=== PATIENT | female | born 1965 | race Caucasian/White ===

== ENCOUNTER → 2017-09-20 09:25 | Outpatient (CLI) | payer MEDICARE, SELFPAY ==
[2017-09-20 09:43] LABS: Basophils % 0.6 % (0.1-2.0); Eosinophils # 0.5 K/mm3 (0.0-0.4); Eosinophils % 7.2 % (0.1-12.0); Hemoglobin 13.7 g/dL (12.2-16.2); Lymphocytes # 1.3 K/mm3 (0.7-4.5); Mean Corpuscular HGB Conc 33.3 g/dL (31.8-35.4); Mean Corpuscular Hemoglobin 30.6 pg (27.0-31.2); Mean Platelet Volume 7.5 fl (7.4-10.4); Monocytes # 0.5 K/mm3 (0.1-1.0); Monocytes % 7.6 % (1.7-9.3); Neutrophils # 4.3 K/mm3 (1.8-7.8); Neutrophils % 64.5 % (37.0-80.0); Platelet Count 323 K/mm3 (142-424); Red Blood Count 4.46 M/mm3 (4.20-5.40); Red Cell Distribution Width 13.5 % (11.5-17.5); White Blood Count 6.6 K/mm3 (4.8-10.8)
[2017-09-20 10:54] LABS: Alanine Aminotransferase 51 U/L (12-78); Albumin Level 3.9 gm/dL (3.4-5.0); Albumin/Globulin Ratio 1.4 (1.1-1.8); Alkaline Phosphatase 70 U/L (46-116); Anion Gap 11.4 mEq/L (5-15); Aspartate Amino Transferase 24 U/L (15-37); Bilirubin,Total 0.4 mg/dL (0.2-1.0); Blood Urea Nitrogen 16 mg/dL (7-18); Calcium 9.4 mg/dL (8.5-10.1); Carbon Dioxide 29 mmol/L (21.0-32.0); Chloride 106 mmol/L (98-107); Creatinine,Serum 0.72 mg/dL (0.55-1.02); Estimated Glomerular Filt Rate 86 ml/min (>60); GFR (African American) 104 ML/MIN (>60); Globulin 2.7 gm/dl (1.3-3.2); Glucose 82 mg/dL (74-106); Potassium 4.4 mmoL/L (3.5-5.1); Sodium 142 mmol/L (136-145); Total Protein,Serum 6.6 gm/dL (6.4-8.2)
== END ==
PROVIDERS: PCP Family Medicine; Visit Provider Psychiatry & Neurology Neurology
DX: Z79.899 Other long term (current) drug therapy (principal); G35 Multiple sclerosis; E11.40 Type 2 diabetes mellitus with diabetic neuropathy, unspecified
CPT/HCPCS: 36415; 80053; 85025

== ENCOUNTER → 2017-11-14 14:50 | Outpatient (CLI) | payer MEDICARE, SELFPAY ==
--- NOTE | 2017-11-14 14:52 | MR_ITS ---
MR head/brain wo con HISTORY: Diplopia, multiple sclerosis, neuropathy, unsteady gait, history of multiple sclerosis with follow-up, double vision, right upper extremity neuropathy ITS.REASON: DIPLOPIA, MULTIPLE SCLEROSIS, NEUROPATHY, UNSTEADY GAIT ORDERING PHYSICIAN: Gisselle Gray PATIENT AGE: 52 years COMPARISON: 05/03/2015 TECHNIQUE: Standard multiplanar multiecho sequences are performed without contrast. FINDINGS: No midline shift, mass effect, intracranial hemorrhage, or hydrocephalus is evident. No evidence of acute infarction or restricted diffusion. The cerebellopontine angles, cerebellum, and brainstem are unremarkable. The pituitary and optic chiasm are unremarkable as is the corpus callosum. Unremarkable craniocervical junction. There are scattered periventricular and subcortical small T2 white matter hyperintensities which are similar when compared to the previous exam. A small punctate focus of T2 hyperintensity is present in the antral aspect of the left putamen and in the left temporal lobe central white matter which is not readily apparent on the previous exam. These are questioned clinical significance. These are small and well demarcated each measuring approximately 1 to 2 mm. No other new lesions are evident. No mastoid effusion or sinus air-fluid level. IMPRESSION: 1. There are scattered T2 white matter hyperintensities as described above most of which are unchanged. This may be seen with multiple sclerosis or ischemic gliotic change from microvascular disease. Please correlate with clinical parameters. 2. There are 2 new punctate foci of increased T2 signal in the left basal ganglia and one in the left temporal lobe are nonspecific. 3. Otherwise negative MRI of the brain without contrast.
== END ==
PROVIDERS: Family Provider Family Medicine; PCP Family Medicine; Visit Provider Psychiatry & Neurology Neurology
DX: H53.2 Diplopia (principal); G35 Multiple sclerosis; R26.89 Other abnormalities of gait and mobility
CPT/HCPCS: 70551

== ENCOUNTER → 2018-01-01 08:28 | Outpatient (CLI) | payer MEDICARE, SELFPAY ==
--- NOTE | 2018-01-01 08:32 | MM_ITS ---
MM Dig screening mamm BI w/CAD CAD Screening ORDERING PHYSICIAN : Georges Linder MD PATIENT AGE: 52 years GENDER: Female INDICATION: Routine screening.. No hormones. No new complaints Family history paternal aunt breast cancer premenopausal COMPARISON: Previous mammograms: August 08, 2016,, 2012, TECHNIQUE: Standard CC and MLO images were obtained. R2 CAD reviewed. FINDINGS: Moderate breast density bilaterally Overall pattern however similar to previous studies with no significant new findings. But no dominant mass nor suspicious calcification. There is slight decreasing breast density with compared back to 2012. CAD Computer review highlights no areas of concern either breast IMPRESSION: ...... Stable mammogram with no significant new findings. Moderately dense breast. . Follow-up in one year recommended BI-RADS Category: 1 Negative RECOMMENDED FOLLOW-UP: 1YR - 1 YEAR FOLLOW-UP (A letter has been sent to the patient regarding results of the study.)
== END ==
PROVIDERS: Family Provider Family Medicine; PCP Family Medicine; Visit Provider Family Medicine
DX: Z12.31 Encounter for screening mammogram for malignant neoplasm of breast (principal)
CPT/HCPCS: 77067

== ENCOUNTER → 2018-07-24 14:00 | Outpatient (CLI) | payer MEDICARE, SELFPAY ==
--- NOTE | 2018-07-24 14:07 | XR_ITS ---
XR chest 2V HISTORY: ITS.REASON: BRONCHITIS ORDERING PHYSICIAN: RJ Nova PATIENT AGE: 52 years COMPARISON: 09/30/2009 FINDINGS: The cardiomediastinal silhouette and pulmonary vascularity are within normal limits. The lungs are clear without infiltrates, suspicious nodules, or pleural effusions. No acute bony abnormalities. IMPRESSION: Negative chest, no acute finding
== END ==
PROVIDERS: PCP Family Medicine; Visit Provider Physician Assistant
DX: J40 Bronchitis, not specified as acute or chronic (principal)
CPT/HCPCS: 71046

== ENCOUNTER → 2018-08-08 13:44 | Outpatient (CLI) | payer MEDICARE, SELFPAY ==
--- NOTE | 2018-08-08 13:51 | XR_ITS ---
XR chest 2V HISTORY: ITS.REASON: BRONCHITIS ORDERING PHYSICIAN: RJ Nova PATIENT AGE: 52 years COMPARISON: 07/24/2018 FINDINGS: The cardiomediastinal silhouette and pulmonary vascularity are within normal limits. The lungs are clear without infiltrates, suspicious nodules, or pleural effusions. No acute bony abnormalities. IMPRESSION: Negative chest, no acute finding
== END ==
PROVIDERS: PCP Family Medicine; Visit Provider Physician Assistant
DX: J40 Bronchitis, not specified as acute or chronic (principal)
CPT/HCPCS: 71046

== ENCOUNTER → 2018-11-06 16:00 | Outpatient (CLI) | payer MEDICARE, SELFPAY ==
[2018-11-06 16:43] LABS: Basophils # 0.1 K/mm3 (0-0.2); Basophils % 0.9 % (0.1-2.0); Eosinophils # 0.6 K/mm3 (0.0-0.4); Eosinophils % 9.2 % (0.1-12.0); Hematocrit 39.4 % (37.0-47.0); Lymphocytes # 1.3 K/mm3 (0.7-4.5); Lymphocytes % 19.3 % (10-50); Mean Corpuscular HGB Conc 33.1 g/dL (31.8-35.4); Mean Corpuscular Hemoglobin 30.8 pg (27.0-31.2); Mean Corpuscular Volume 93.1 fl (81-99); Mean Platelet Volume 7.4 fl (7.4-10.4); Monocytes # 0.6 K/mm3 (0.1-1.0); Monocytes % 8.9 % (1.7-9.3); Neutrophils % 61.7 % (37.0-80.0); Platelet Count 354 K/mm3 (142-424); Red Blood Count 4.23 M/mm3 (4.20-5.40); Red Cell Distribution Width 13.9 % (11.5-17.5); White Blood Count 6.5 K/mm3 (4.8-10.8)
[2018-11-06 18:37] LABS: Alanine Aminotransferase 47 U/L (12-78); Albumin Level 3.8 gm/dL (3.4-5.0); Albumin/Globulin Ratio 1.3 (1.1-1.8); Alkaline Phosphatase 73 U/L (46-116); Anion Gap 14.4 mEq/L (5-15); Aspartate Amino Transferase 26 U/L (15-37); Bilirubin,Total 0.3 mg/dL (0.2-1.0); Blood Urea Nitrogen 19 mg/dL (7-18); Calcium 9.5 mg/dL (8.5-10.1); Carbon Dioxide 27 mmol/L (21.0-32.0); Chloride 103 mmol/L (98-107); Creatinine,Serum 0.86 mg/dL (0.55-1.02); Estimated Glomerular Filt Rate 70 ml/min (>60); GFR (African American) 84 ML/MIN (>60); Globulin 2.9 gm/dl (1.3-3.2); Glucose 125 mg/dL (74-106); Potassium 4.4 mmoL/L (3.5-5.1); Sodium 140 mmol/L (136-145); Total Protein,Serum 6.7 gm/dL (6.4-8.2)
== END ==
PROVIDERS: Visit Provider Psychiatry & Neurology Neurology
DX: G35 Multiple sclerosis (principal); R41.3 Other amnesia; R26.81 Unsteadiness on feet; E11.40 Type 2 diabetes mellitus with diabetic neuropathy, unspecified; Z79.84 Long term (current) use of oral hypoglycemic drugs
CPT/HCPCS: 36415; 80053; 85025

== ENCOUNTER → 2018-12-03 09:08 | Outpatient (CLI) | payer MEDICARE, SELFPAY ==
[2018-12-03 10:32] LABS: Alanine Aminotransferase 36 U/L (12-78); Albumin Level 3.9 gm/dL (3.4-5.0); Albumin/Globulin Ratio 1.2 (1.1-1.8); Alkaline Phosphatase 88 U/L (46-116); Anion Gap 16.4 mEq/L (5-15); Aspartate Amino Transferase 11 U/L (15-37); Bilirubin,Total 0.4 mg/dL (0.2-1.0); Blood Urea Nitrogen 16 mg/dL (7-18); Calcium 9.4 mg/dL (8.5-10.1); Carbon Dioxide 26 mmol/L (21.0-32.0); Chloride 102 mmol/L (98-107); Chol/HDL Ratio 3.1 (1-3.5); Cholesterol 155 mg/dL (140-200); Creatinine,Serum 0.86 mg/dL (0.55-1.02); Estimated Glomerular Filt Rate 70 ml/min (>60); GFR (African American) 84 ML/MIN (>60); Globulin 3.3 gm/dl (1.3-3.2); Glucose 237 mg/dL (74-106); HDL Cholesterol 50 mg/dL (29-89); LDL Cholesterol 45 mg/dL (0-130); Potassium 4.4 mmoL/L (3.5-5.1); Sodium 140 mmol/L (136-145); Total Protein,Serum 7.2 gm/dL (6.4-8.2); Triglycerides 302 mg/dL (30-200); VLDL Cholesterol 60 mg/dL (0-40)
[2018-12-03 10:55] LABS: Thyroid Stimulating Hormone 1.37 uIU/ml (0.358-3.740)
[2018-12-04 12:47] LABS: Vitamin B12 1206 pg/mL (232-1245); Vitamin D 25 Hydroxy 77.2 ng/mL (30.0-100.0)
== END ==
PROVIDERS: Visit Provider Physician Assistant
DX: E78.2 Mixed hyperlipidemia (principal); E03.9 Hypothyroidism, unspecified; E53.8 Deficiency of other specified B group vitamins; E11.9 Type 2 diabetes mellitus without complications; E55.9 Vitamin D deficiency, unspecified; Z00.00 Encounter for general adult medical examination without abnormal findings
CPT/HCPCS: 36415; 80053; 80061; 82607; 82652; 84443

== ENCOUNTER → 2019-12-08 10:31 | Outpatient (CLI) | payer MEDICARE, SELFPAY ==
--- NOTE | 2019-12-08 10:54 | XR_ITS ---
PROCEDURE: XR HAND RT MIN 3V CLINICAL INDICATION: DEQUERVAIN'S TENOSYNOVITIS Pain COMPARISON: No exams were available for comparison FINDINGS: No fracture or dislocation. No lytic or blastic change. There is normal mineralization. The joint spaces are well-preserved. No significant degenerative/arthritic changes. No erosive changes evident. Other findings:None. IMPRESSION: Negative right hand Dictated by: Paxton Henry MD 12/08/2019 11:33 Electronically signed by Paxton Henry MD in [place] 12/08/2019 11:33
--- NOTE | 2019-12-08 10:54 | XR_ITS ---
PROCEDURE: XR WRIST LT MIN 3V CLINICAL INDICATION: DEQUERVAIN'S TENOSYNOVITIS Pain COMPARISON: XR HAND LT MIN 3V from 12/08/2019 FINDINGS: No fracture, dislocation, lytic change, or blastic change evident. No significant degenerative change IMPRESSION: No acute findings. Dictated by: Paxton Henry MD 12/08/2019 11:34 Electronically signed by Paxton Henry MD in [place] 12/08/2019 11:34
--- NOTE | 2019-12-08 10:54 | XR_ITS ---
PROCEDURE: XR WRIST RT MIN 3V CLINICAL INDICATION: DEQUERVAIN'S TENOSYNOVITIS Wrist pain COMPARISON: No exams were available for comparison FINDINGS: No fracture, dislocation, lytic change, or blastic change evident. No significant degenerative change IMPRESSION: Negative right wrist Dictated by: Paxton Henry MD 12/08/2019 11:30 Electronically signed by Paxton Henry MD in [place] 12/08/2019 11:30
[2019-12-08 12:22] LABS: Alanine Aminotransferase 37 U/L (12-78); Albumin Level 4.8 g/dl (3.5-5.0); Alkaline Phosphatase 84 U/L (38-126); Anion Gap 16.3 mEq/L (5-15); Aspartate Amino Transferase 22 U/L (14-36); Bilirubin,Total 0.4 mg/dl (0.2-1.3); Blood Urea Nitrogen 24 mg/dl (7-17); Carbon Dioxide 27 mmol/L (22.0-30.0); Chloride 98 mmol/L (98-107); Chol/HDL Ratio 2.1 (1-3.5); Cholesterol 134 mg/dl (140-200); Estimated Glomerular Filt Rate 88 ml/min (>60); GFR (African American) 106 ML/MIN (>60); Globulin 2.4 g/dL (1.3-3.2); Glucose 175 mg/dl (74-100); HDL Cholesterol 64 mg/dl (40-60); Potassium 4.3 mmoL/L (3.5-5.1); Sodium 137 mmol/L (136-145); Total Protein,Serum 7.2 g/dl (6.3-8.2); Triglycerides 331 mg/dl (30-150); VLDL Cholesterol 66 mg/dL (0-40)
[2019-12-08 12:32] LABS: Direct LDL Cholesterol 45.59 mg/dL (100-129)
[2019-12-08 12:54] LABS: Thyroid Stimulating Hormone 0.57 uIU/mL (0.465-4.68)
[2019-12-09 06:58] LABS: Vitamin D 25 Hydroxy 88.3 ng/mL (30.0-100.0)
[2019-12-09 09:30] LABS: Vitamin B12 1501 pg/mL (232-1245)
== END ==
PROVIDERS: Visit Provider Physician Assistant
DX: E03.9 Hypothyroidism, unspecified (principal); E11.9 Type 2 diabetes mellitus without complications; E78.2 Mixed hyperlipidemia; E53.8 Deficiency of other specified B group vitamins; E55.9 Vitamin D deficiency, unspecified; M65.4 Radial styloid tenosynovitis [de Quervain]; Z79.4 Long term (current) use of insulin
CPT/HCPCS: 36415; 73110; 73130; 80053; 80061; 82607; 82652; 84439; 84443

== ENCOUNTER → 2019-12-16 09:25 | Outpatient (CLI) | payer MEDICARE, SELFPAY ==
[2019-12-19 09:17] LABS: RA Latex Turbid. <10.0 IU/mL (0.0-13.9)
== END ==
PROVIDERS: Visit Provider Physician Assistant
DX: M25.562 Pain in left knee (principal); M25.561 Pain in right knee
CPT/HCPCS: 36415; 86431

== ENCOUNTER → 2020-01-08 13:18 | Outpatient (CLI) | payer MEDICARE, SELFPAY ==
[2020-01-08 15:55] LABS: Uric Acid 5.3 mg/dl (2.5-6.2)
[2020-01-08 17:33] LABS: Erythrocyte Sedimentation Rate 18 mm/hr (0-30)
[2020-01-14 03:47] LABS: Antinuclear Antibodies, IFA Negative (.)
== END ==
PROVIDERS: Visit Provider Physician Assistant
DX: M25.562 Pain in left knee (principal); M25.561 Pain in right knee
CPT/HCPCS: 36415; 84550; 85651; 86038

== ENCOUNTER → 2020-02-10 07:38 | Outpatient (CLI) | payer MEDICARE, SELFPAY ==
--- NOTE | 2020-02-10 07:44 | MR_ITS ---
PROCEDURE: MR HEAD/BRAIN WO CON CLINICAL INDICATION: MULTIPLE SCLEROSIS COMPARISON: BRAINWO MR head/brain wo con from 11/14/2017 TECHNIQUE: Standard unenhanced brain MRI protocol FINDINGS: There are no restricted diffusion abnormalities. The vertebrobasilar arteries, 7th and 8th nerves, ventricles, pituitary, orbits, and sinuses are unremarkable. There are stable scattered foci of T2 prolongation within the subcortical, periventricular, and the pericallosal white matter. There are no definite new lesions. Corpus callosum and the midbrain is unremarkable. There is no hemorrhage. IMPRESSION: Stable supratentorial findings of known multiple sclerosis. Dictated by: Flo Talley 02/10/2020 12:11 Electronically signed by Flo Talley in [place] 02/10/2020 12:11
== END ==
PROVIDERS: PCP Family Medicine; Visit Provider Psychiatry & Neurology Neurology
DX: G35 Multiple sclerosis (principal)
CPT/HCPCS: 70551

== ENCOUNTER → 2020-03-09 14:52 | Outpatient (CLI) | payer MEDICARE, SELFPAY ==
[2020-03-09 15:15] LABS: Basophils # 0.1 K/mm3 (0-0.2); Basophils % 0.6 % (0.1-2.0); Eosinophils # 0.5 K/mm3 (0.0-0.4); Eosinophils % 6.2 % (0.1-12.0); Hematocrit 40.5 % (37.0-47.0); Hemoglobin 13.5 g/dL (12.2-16.2); Lymphocytes # 1.2 K/mm3 (0.7-4.5); Lymphocytes % 15.7 % (10-50); Mean Corpuscular HGB Conc 33.4 g/dL (31.8-35.4); Mean Corpuscular Hemoglobin 30.7 pg (27.0-31.2); Mean Corpuscular Volume 91.8 fl (81-99); Mean Platelet Volume 8.4 fl (7.4-10.4); Monocytes # 0.6 K/mm3 (0.1-1.0); Monocytes % 7.5 % (1.7-9.3); Neutrophils # 5.3 K/mm3 (1.8-7.8); Platelet Count 339 K/mm3 (142-424); Red Blood Count 4.41 M/mm3 (4.20-5.40); Red Cell Distribution Width 14.1 % (11.5-17.5); White Blood Count 7.5 K/mm3 (4.8-10.8)
[2020-03-09 16:43] LABS: Anion Gap 15.3 mEq/L (5-15); Blood Urea Nitrogen 18 mg/dl (7-17); Calcium 9.9 mg/dl (8.4-10.2); Carbon Dioxide 28 mmol/L (22.0-30.0); Chloride 100 mmol/L (98-107); Estimated Glomerular Filt Rate 66 ml/min (>60); GFR (African American) 80 ML/MIN (>60); Glucose 172 mg/dl (74-100); Potassium 4.3 mmoL/L (3.5-5.1); Sodium 139 mmol/L (136-145)
== END ==
PROVIDERS: Visit Provider Physician Assistant
DX: G35 Multiple sclerosis; I10 Essential (primary) hypertension; I25.10 Atherosclerotic heart disease of native coronary artery without angina pectoris; Q24.8 Other specified congenital malformations of heart; R06.09 Other forms of dyspnea; R55 Syncope and collapse; E78.49 Other hyperlipidemia
CPT/HCPCS: 36415; 80048; 85025

== ENCOUNTER → 2020-05-18 09:42 | Outpatient (CLI) | payer MEDICARE, SELFPAY ==
[2020-05-18 10:36] LABS: Basophils # 0.1 K/mm3 (0-0.2); Basophils % 0.8 % (0.1-2.0); Eosinophils # 0.4 K/mm3 (0.0-0.4); Eosinophils % 5.7 % (0.1-12.0); Hematocrit 42.2 % (37.0-47.0); Hemoglobin 13.7 g/dL (12.2-16.2); Lymphocytes % 16.9 % (10-50); Mean Corpuscular HGB Conc 32.6 g/dL (31.8-35.4); Mean Corpuscular Hemoglobin 29.9 pg (27.0-31.2); Mean Corpuscular Volume 91.9 fl (81-99); Mean Platelet Volume 7.4 fl (7.4-10.4); Monocytes # 0.5 K/mm3 (0.1-1.0); Monocytes % 8.2 % (1.7-9.3); Neutrophils # 4.2 K/mm3 (1.8-7.8); Neutrophils % 68.4 % (37.0-80.0); Platelet Count 333 K/mm3 (142-424); Red Blood Count 4.59 M/mm3 (4.20-5.40); Red Cell Distribution Width 13.6 % (11.5-17.5); White Blood Count 6.2 K/mm3 (4.8-10.8)
[2020-05-18 11:26] LABS: Chloride 99 mmol/L (98-107); Potassium 4.8 mmoL/L (3.5-5.1); Sodium 139 mmol/L (136-145)
[2020-05-18 11:29] LABS: Alanine Aminotransferase 32 U/L (12-78); Albumin Level 4.4 g/dl (3.5-5.0); Albumin/Globulin Ratio 1.8 (1.1-1.8); Alkaline Phosphatase 91 U/L (38-126); Anion Gap 17.8 mEq/L (5-15); Aspartate Amino Transferase 29 U/L (14-36); Bilirubin,Total 0.7 mg/dl (0.2-1.3); Blood Urea Nitrogen 16 mg/dl (7-17); Carbon Dioxide 27 mmol/L (22.0-30.0); Estimated Glomerular Filt Rate 75 ml/min (>60); GFR (African American) 91 ML/MIN (>60); Globulin 2.4 g/dL (1.3-3.2); Total Protein,Serum 6.8 g/dl (6.3-8.2)
[2020-05-18 11:30] LABS: Calcium 9.6 mg/dl (8.4-10.2); Glucose 190 mg/dl (74-100)
== END ==
PROVIDERS: Visit Provider Psychiatry & Neurology Neurology
DX: G35 Multiple sclerosis (principal); E11.40 Type 2 diabetes mellitus with diabetic neuropathy, unspecified; Z79.4 Long term (current) use of insulin; Z79.899 Other long term (current) drug therapy; M79.642 Pain in left hand; M79.641 Pain in right hand
CPT/HCPCS: 36415; 80053; 85025

== ENCOUNTER → 2020-11-17 07:41 | Outpatient (CLI) | payer MEDICARE, SELFPAY ==
--- NOTE | 2020-11-17 07:44 | MM_ITS ---
PROCEDURE: MM DIG SCREENING MAMM BI W/CAD Digital Breast Tomosynthesis Included CLINICAL INDICATION: SCREENING There is a history of breast cancer in the patient's paternal aunt. COMPARISON: MG DMSB DIG MAMM-SCREEN ABEL from 07/27/2016 MG DMDXUAVL DIG MAMM-DX UNI ADD VIEWS-LT from 08/18/2016 MG SCBI MM Dig screening mamm BI w/CAD from 01/01/2018 TECHNIQUE: Standard CC and MLO images and 3D Tomosynthesis was obtained. R2 CAD reviewed. FINDINGS: Moderate fibroglandular densities are seen in the central portions of both breast. There are no CAD markings. There are couple of benign-appearing microcalcifications in each breast. There is no suspicious lesion and no suspicious microcalcifications. IMPRESSION: Moderate breast density with no suspicious lesions seen BI-RAD Category: 2 Benign Finding(s) FOLLOW-UP: 1YR 1 Year Follow-up (A letter has been sent to the patient regarding results of the study.) Dictated by: Dr. Shahriar Marquez MD 11/24/2020 08:15 Dr. Shahriar Marquez MD in [place] 11/24/2020 08:15
--- NOTE | 2020-11-17 07:45 | XR_ITS ---
PROCEDURE: XR DEXA AXIAL SKELETON CLINICAL HISTORY: POST MENOPAUSAL COMPARISON: CR BONE3 BONE DENSITOMETRY(HIP:LT SPINE from 07/27/2016 FINDINGS: The right hip BMD is 0.841 grams/square centimeters with a T-score of -0.8 The left hip BMD is 0.855 grams/cm2 with a T-score of -0.7 The lumbar spine BMD is 1.001 grams/centimeters square with a T-score of -0.4 IMPRESSION: This patient is considered normal according to the World Health Organization criteria. Fracture risk is low. Based on these results a follow-up exam is recommended in 2 year. Dictated by: Lorenza Barros 11/17/2020 11:18 Lorenza Barros in [place] 11/17/2020 11:18
== END ==
PROVIDERS: PCP Family Medicine; Visit Provider Physician Assistant
DX: Z12.31 Encounter for screening mammogram for malignant neoplasm of breast (principal); Z78.0 Asymptomatic menopausal state
CPT/HCPCS: 77063; 77067; 77080

== ENCOUNTER → 2021-08-03 10:14 | Outpatient (CLI) | payer MEDICARE, SELFPAY ==
[2021-08-03 11:38] LABS: Hemoglobin A1C 8.6 % (4.0-6.0)
[2021-08-03 11:57] LABS: Alanine Aminotransferase 46 U/L (12-78); Albumin Level 4.6 g/dl (3.5-5.0); Albumin/Globulin Ratio 2.1 (1.1-1.8); Alkaline Phosphatase 83 U/L (38-126); Anion Gap 14.1 mEq/L (5-15); Aspartate Amino Transferase 52 U/L (14-36); Bilirubin,Total 0.4 mg/dl (0.2-1.3); Blood Urea Nitrogen 11 mg/dl (7-17); Calcium 9.4 mg/dl (8.4-10.2); Carbon Dioxide 27 mmol/L (22.0-30.0); Chloride 103 mmol/L (98-107); Chol/HDL Ratio 2.4 (1-3.5); Cholesterol 135 mg/dl (140-200); Estimated Glomerular Filt Rate 75 ml/min (>60); GFR (African American) 91 ML/MIN (>60); Globulin 2.2 g/dL (1.3-3.2); Glucose 121 mg/dl (74-100); HDL Cholesterol 57 mg/dl (40-60); Potassium 4.1 mmoL/L (3.5-5.1); Sodium 140 mmol/L (136-145); Total Protein,Serum 6.8 g/dl (6.3-8.2); Triglycerides 211 mg/dl (30-150); VLDL Cholesterol 42 mg/dL (0-40)
[2021-08-03 12:14] LABS: 25-OH Vitamin D, Total 88.6 ng/mL (30-100)
[2021-08-03 12:16] LABS: Free T4 (Free Thyroxine) 1.14 ng/dl (0.78-2.19)
[2021-08-03 12:29] LABS: Thyroid Stimulating Hormone 0.98 uIU/mL (0.465-4.68)
[2021-08-03 12:50] LABS: Vitamin B12 > 1000 pg/mL (239-931)
== END ==
PROVIDERS: Visit Provider Physician Assistant
DX: E03.9 Hypothyroidism, unspecified (principal); E11.9 Type 2 diabetes mellitus without complications; E78.2 Mixed hyperlipidemia; E53.8 Deficiency of other specified B group vitamins; E55.9 Vitamin D deficiency, unspecified; Z79.4 Long term (current) use of insulin
CPT/HCPCS: 36415; 80053; 80061; 82306; 82607; 83036; 84439; 84443

== ENCOUNTER → 2021-08-22 10:21 | Outpatient (CLI) | payer MEDICARE, SELFPAY ==
[2021-08-22 11:18] LABS: Adenovirus,PCR Not Detected (NotDetected); Bordetella Pertussis Not Detected (NotDetected); Chlamydophila Pneumoniae, PCR Not Detected (NotDetected); Coronavirus 19, PCR Not Detected (NotDetected); Coronavirus 229E Not Detected (NotDetected); Coronavirus NL63 Not Detected (NotDetected); Coronavirus OC43 Not Detected (NotDetected); Coronovirus HKU1,PCR Not Detected (NotDetected); Influenza A, PCR Not Detected (NotDetected); Influenza AH1, 2009 Not Detected (NotDetected); Influenza AH1, PCR Not Detected (NotDetected); Influenza AH3,PCR Not Detected (NotDetected); Influenza B, PCR Not Detected (NotDetected); Mycoplasma Pneumoniae, PCR Not Detected (NotDetected); Parainfluenza 1, PCR Not Detected (NotDetected); Parainfluenza 2, PCR Not Detected (NotDetected); Parainfluenza 3, PCR Not Detected (NotDetected); Parainfluenza 4, PCR Not Detected (NotDetected); Respiratory Syncytial Virus Not Detected (NotDetected); Rhinovirus/Enterovirus Not Detected (NotDetected)
[2021-08-22 11:48] LABS: Basophils # 0.1 K/mm3 (0-0.2); Basophils % 0.6 % (0.1-2.0); Eosinophils # 0.5 K/mm3 (0.0-0.4); Eosinophils % 6.3 % (0.1-12.0); Hematocrit 41.4 % (37.0-47.0); Hemoglobin 13.2 g/dL (12.2-16.2); Lymphocytes # 1.4 K/mm3 (0.7-4.5); Lymphocytes % 18.8 % (10-50); Mean Corpuscular Hemoglobin 29.6 pg (27.0-31.2); Mean Corpuscular Volume 92.6 fl (81-99); Mean Platelet Volume 8.3 fl (7.4-10.4); Monocytes # 0.5 K/mm3 (0.1-1.0); Monocytes % 7.1 % (1.7-9.3); Neutrophils # 5.1 K/mm3 (1.8-7.8); Neutrophils % 67.3 % (37.0-80.0); Platelet Count 328 K/mm3 (142-424); Red Blood Count 4.47 M/mm3 (4.20-5.40); Red Cell Distribution Width 14.7 % (11.5-17.5); White Blood Count 7.6 K/mm3 (4.8-10.8)
[2021-08-22 14:31] LABS: Human Metapneumovirus Detected (NotDetected)
== END ==
PROVIDERS: PCP Family Medicine; Visit Provider Family Medicine
DX: Z20.822 Contact with and (suspected) exposure to COVID-19 (principal); B97.81 Human metapneumovirus as the cause of diseases classified elsewhere
CPT/HCPCS: 36415; 85025; 87581; 87632; 87798; C9803; U0003; U0005

== ENCOUNTER → 2021-12-13 11:24 | Outpatient (CLI) | payer MEDICARE, SELFPAY ==
--- NOTE | 2021-12-13 | CA_ITS ---
APPROVED REPORT Exam: Pharmacologic Technologist: Bruna Jimenez Ht: 5 ft 2 in Wt: 165 lbs BSA: 1.76 m2 HR: 65 bpm BP: 114/55 mmHg Indications: Shortness of Breath, Chest pain Medical History Medications: Omeprazole,,,,, Levothyroxine,,,,, Aspirin,,,,, Verapamil,,,,, Metformin,,,,, INSULIN,,,,, DulOXETINE,,,,, BisOPROLOL,,,,, AmiTRIPTYLINE,,,,, Nitroglycerin,,,,, SpirOnolactone,,,,, RoSUVASTATIN,,,,, Stress Test Details Test: LEXISCAN HR Resting HR: 66 bpm Max Heart Rate (APMHR): 166.406822 bpm Max HR Achieved: 77 bpm Target HR (85% APMHR): 141.914100 bpm % of APMHR: 46.39 Recovery HR: 72 bpm BP Resting BP: 114.0/55.0 mmHg Max BP: 116.0/62.0 mmHg Recovery BP: 116.0/62.0 mmHg ECG Resting ECG: Normal sinus rhythm, first degree AV block, low voltage QRS Clinical Exercise duration: 04:00 min Highest Stage Achieved: Exercise capacity: 1.0 METs Stress ECG Conclusion Symptoms: Shortness of air, head discomfort, mild nausea, mild chest tightness. Arrhythmias/Ectopy: None ST-T Changes: No significant changes. Conclusion: Unremarkable Lexiscan stress. Myoview images reported separately. Electronically signed by : Garret Conner MD 12/13/2021 19:29:01
--- NOTE | 2021-12-13 11:25 | NM_ITS ---
APPROVED REPORT Exam: Nuclear Stress Test Indication: Chest pain, SOB, Palpitations, Fatigue, Dysrhythmia, DM, High cholesterol, Family history Patient Location: Outpatient Stress Tech: Bruna Jimenez NM Tech:Carley Tao, ARRT, RT (R)(N) Ht: 5 ft 5 in Wt: 165 lbs Bra Size: B HR: 66 bpm BP: 114/55 mmHg BSA: 1.82 m2 BMI: 27.4 History: Chest pain, SOB, Palpitations, Fatigue, Dysrhythmia, DM, High cholesterol, Family history Procedure: Patient received a 0.4 mg of intravenous Lexiscan, resting heart rate 66 bpm, resting blood pressure 114/55 mmHg, with Lexiscan maximum heart rate achived was 77 bpm which is Less than 85 % of the maximum predicted heart rate and blood pressure was 116/62 mmHg. With Lexiscan, patient denied any complaint of chest pain. Electrocardiogram Resting electrocardiogram showed sinus rhythm, with Lexiscan there is less than 1.[address] segment depressions noted from the baseline EKG. The EKG portion of the Lexiscan is nondiagnostic. Cardiac Stress and Resting SPECT Images: Cardiac Stress and Resting SPECT images were obtained using technetium 99m Myoview 32.2 mCi stress and 10.36 mCi at rest. Gated SPECT for analysis of segmental wall motion and calculation of the ejection fraction also done. Cardiac stress and resting SPECT images show uniform myocardial activity without segmental perfusion abnormality, computer derived ejection fraction is over 65% with no regional wall motion abnormality, right ventricle is normal size and contractility. Conclusion: 1. The EKG portion of the Lexiscan is nondiagnostic. 2. No scintigraphic evidence of reversible ischemia seen, computer derived ejection fraction is over 65% with no regional wall motion abnormality, right ventricle is normal size and contractility. 3. Normal Lexiscan Myoview study. Electronically signed by : Garret Conner MD 12/13/2021 19:31:24
--- NOTE | 2021-12-13 13:00 | HMH.ITSHM ---
Current Home Medications as stated by this patient Alison Lucero or marketing representative. []VERAPAMIL SPIRONOLACTONE ROSUVASTATIN OMEPRAZOLE NITRO METFORMIN LIRAGLUTIDE LEVOTHYROXINE INSULIN FUROSEMIDE FINGOLIMOD DULOXETINE BISOPROLOL ASA AMITRIPTYLINE
== END ==
PROVIDERS: PCP Family Medicine; Visit Provider Nurse Practitioner Family
DX: E11.9 Type 2 diabetes mellitus without complications (principal); E78.2 Mixed hyperlipidemia; G35 Multiple sclerosis; I10 Essential (primary) hypertension; I25.10 Atherosclerotic heart disease of native coronary artery without angina pectoris; Q24.8 Other specified congenital malformations of heart; R06.09 Other forms of dyspnea; R07.89 Other chest pain; Z79.4 Long term (current) use of insulin
CPT/HCPCS: 78452; 93017; A9502; J2785

== ENCOUNTER → 2021-12-21 08:30 | Outpatient (CLI) | payer MEDICARE, SELFPAY ==
[2021-12-21 09:24] LABS: Basophils # 0.1 K/mm3 (0-0.2); Basophils % 0.6 % (0.1-2.0); Eosinophils # 0.4 K/mm3 (0.0-0.4); Eosinophils % 3.4 % (0.1-12.0); Hematocrit 39.8 % (37.0-47.0); Hemoglobin 13.1 g/dL (12.2-16.2); Lymphocytes % 8.7 % (10-50); Mean Corpuscular HGB Conc 32.8 g/dL (31.8-35.4); Mean Corpuscular Hemoglobin 30.6 pg (27.0-31.2); Mean Corpuscular Volume 93.2 fl (81-99); Mean Platelet Volume 8.1 fl (7.4-10.4); Monocytes # 0.7 K/mm3 (0.1-1.0); Monocytes % 6.4 % (1.7-9.3); Neutrophils # 9.2 K/mm3 (1.8-7.8); Neutrophils % 80.8 % (37.0-80.0); Platelet Count 344 K/mm3 (142-424); Red Blood Count 4.27 M/mm3 (4.20-5.40); Red Cell Distribution Width 14.4 % (11.5-17.5); White Blood Count 11.4 K/mm3 (4.8-10.8)
[2021-12-21 09:40] LABS: Chloride 100 mmol/L (98-107); Potassium 4.3 mmoL/L (3.5-5.1); Sodium 135 mmol/L (136-145)
[2021-12-21 09:42] LABS: Blood Urea Nitrogen 14 mg/dl (7-17); Estimated Glomerular Filt Rate 87 ml/min (>60); GFR (African American) 106 ML/MIN (>60)
[2021-12-21 09:43] LABS: Alanine Aminotransferase 29 U/L (12-78); Albumin Level 4.2 g/dl (3.5-5.0); Albumin/Globulin Ratio 1.9 (1.1-1.8); Alkaline Phosphatase 99 U/L (38-126); Anion Gap 14.3 mEq/L (5-15); Aspartate Amino Transferase 26 U/L (14-36); Bilirubin,Total 0.6 mg/dl (0.2-1.3); Calcium 9.6 mg/dl (8.4-10.2); Carbon Dioxide 25 mmol/L (22.0-30.0); Globulin 2.2 g/dL (1.3-3.2); Glucose 286 mg/dl (74-100); Total Protein,Serum 6.4 g/dl (6.3-8.2)
[2021-12-21 10:56] LABS: 25-OH Vitamin D, Total 91.2 ng/mL (30-100)
[2021-12-21 11:12] LABS: Thyroid Stimulating Hormone 2.49 uIU/mL (0.465-4.68)
[2021-12-21 11:47] LABS: Vitamin B12 802 pg/mL (239-931)
[2021-12-21 11:49] LABS: Folate 2.64 ng/mL
[2021-12-22 12:13] LABS: Ceruloplasmin 24.9 mg/dL (19.0-39.0)
[2021-12-30 04:11] LABS: Vitamin B1 132.8 nmol/L (66.5-200.0)
[2021-12-30 11:23] LABS: Vitamin B6 3.2 ug/L (3.4-65.2)
== END ==
PROVIDERS: Visit Provider Nurse Practitioner
DX: R41.9 Unspecified symptoms and signs involving cognitive functions and awareness (principal); G35 Multiple sclerosis; E11.40 Type 2 diabetes mellitus with diabetic neuropathy, unspecified; E55.9 Vitamin D deficiency, unspecified; E51.9 Thiamine deficiency, unspecified; E53.8 Deficiency of other specified B group vitamins; E53.1 Pyridoxine deficiency; Z79.4 Long term (current) use of insulin
CPT/HCPCS: 36415; 80053; 82306; 82390; 82525; 82607; 82746; 84207; 84425; 84443; 85025

== ENCOUNTER → 2022-01-02 14:54 | Outpatient (CLI) | payer MEDICARE, SELFPAY ==
--- NOTE | 2022-01-02 14:58 | MR_ITS ---
FINAL REPORT CLINICAL HISTORY: MULTIPLE SCLEROSIS. F/U MS. DIZZINESS, OFF BALANCE, HEADACHE AND MEMORY LOSS. COMPARISON: 02/10/2020 FINDINGS: Multiplanar MR imaging of the brain was performed without contrast. There are multiple foci of increased T2 signal in the bilateral cerebral white matter consistent with the patient's history of multiple sclerosis. The largest focus in the right posterior frontal lobe measures 8 mm. Taking into account slice variation, there has been no significant change in the areas of demyelination. There is no definite new area of demyelination. There is no evidence of intracranial hemorrhage or mass. The ventricular size is normal. There is no evidence of shift of the midline structures. No abnormal extra-axial fluid collection is identified. The posterior fossa and brainstem have an unremarkable appearance. No area of abnormal restricted diffusion is identified. Normal major vessel vascular flow voids are seen. IMPRESSION: Stable multiple white matter abnormalities consistent with multiple sclerosis. No new abnormalities are identified. Reviewed, Interpreted and Dictated by Ger Major III, MD Transcribed by Liat Daly Authenticated by Ger Major III, MD on 01/02/2022 04:54:19 PM [facility]
--- NOTE | 2022-01-02 14:58 | MR_ITS ---
PROCEDURE INFORMATION: Exam: MR Cervical Spine Without Contrast Exam date and time: 01/02/2022 3:17 PM Age: 56 years old Clinical indication: Neck pain; Additional info: Multiple sclerosis. F/u ms. Dizziness, off balance, headache and memory loss. TECHNIQUE: Imaging protocol: Multiplanar magnetic resonance images of the cervical spine without contrast. COMPARISON: MR HEAD/BRAIN WO CON 02/10/2020 7:49 AM FINDINGS: Vertebrae: There is no fracture or listhesis. There is multilevel moderate intervertebral disc space loss at C5/6 and C6/7. Spinal cord: Normal signal. No cord compression. C2-C3: No significant disc disease. No significant spinal stenosis. C3-C4: No significant disc disease. No significant spinal stenosis. C4-C5: No significant disc disease. No significant spinal stenosis. C5-C6: There is a diffuse disc osteophyte complex. There is mild facet hypertrophy. There is mild right neural foraminal narrowing. C6-C7: There is a diffuse disc osteophyte complex. There is mild facet hypertrophy. There is mild left neural foraminal narrowing. C7-T1: No significant disc disease. No significant spinal stenosis. Soft tissues: Unremarkable. Vertebral arteries: Expected flow voids in the vertebral arteries. IMPRESSION: No evidence of demyelinating disease within the visualized cervical cord.
== END ==
PROVIDERS: PCP Family Medicine; Visit Provider Nurse Practitioner
DX: G35 Multiple sclerosis (principal)
CPT/HCPCS: 70551; 72141; 76376

== ENCOUNTER 2022-05-30 09:04 | Emergency (ER) | payer MEDICARE, SELFPAY ==
[2022-05-30 09:10] VITALS: BP 145/64; PULSE 90; RESP 22; TEMP 36.8; O2SAT 93; BMI 26.2
--- NOTE | 2022-05-30 09:18 | XR_ITS ---
FINAL REPORT TECHNIQUE: Chest PA & Lateral CLINICAL HISTORY: shortness of breath COMPARISON: 07/24/2018 FINDINGS: 2 views of the chest were performed. The heart size is normal. The mediastinum is within normal limits. There is no acute cardiopulmonary process. There are no pleural effusions. There is no pneumothorax. The bony thorax appears intact. IMPRESSION: No acute cardiopulmonary process. Reviewed, Interpreted and Dictated by Ger Major III, MD Transcribed by Dwain Hughes Authenticated and . [facility]
--- NOTE | 2022-05-30 09:25 | EXP.UTC ---
Discharge Plan Disposition Patient Disposition: Home, Self-Care Condition: Good Prescriptions Prescriptions: No Action omeprazole 40 mg capsule,delayed release(DR/EC) 40 mg PO DAILY liraglutide 0.6 mg/0.1 mL (18 mg/3 mL) pen injector 1.8 mg SQ DAILY insulin degludec 100 unit/mL (3 mL) insulin pen 50 unit SQ DAILY levothyroxine 75 mcg tablet 75 mcg PO DAILY metformin 1,000 mg tablet 1,000 mg PO BID duloxetine [Cymbalta] 60 mg capsule,delayed release(DR/EC) 60 mg PO BID amitriptyline 25 mg tablet 50 mg PO QHS Gilenya 0.5 mg capsule 0.5 mg PO QHS aspirin [Adult Low Dose Aspirin] 81 mg tablet,delayed release (DR/EC) 81 mg PO DAILY nitroglycerin 0.4 mg tablet, sublingual 0.4 mg SUBLINGUAL Q5M PRN (Reason: chest pain) Qty: 30 5RF bisoprolol fumarate 5 mg tablet 5 mg PO DAILY Qty: 90 3RF rosuvastatin [Crestor] 20 mg tablet 20 mg PO DAILY Qty: 90 3RF spironolactone 25 mg tablet 25 mg PO DAILY Qty: 90 3RF furosemide 20 mg tablet See Rx Instructions .ROUTE .COMPLEX Qty: 90 1RF Dose Instruction: Take 1 tablet by mouth once daily Rx Instructions: Take 1 tablet by mouth once daily verapamil 300 mg capsule, [address] See Rx Instructions .ROUTE .COMPLEX Qty: 90 1RF Dose Instruction: TAKE 1 CAPSULE BY MOUTH DAILY Rx Instructions: TAKE 1 CAPSULE BY MOUTH DAILY Referrals Follow up/Referrals: Paolo See MD [Primary Care Provider] - See instructions Clinical Impressions Clinical Impression: Viral respiratory illness Discharge ED Provider: Sophie Ceballos [facility] HPI General Stated complaint: BA, Fever Mode of Arrival: Ambulatory Source of Information: Patient Limitations: No Limitations Time Seen by Provider: 05/30/22 09:22 Description of Symptoms (Recalled from Triage Doc. by RN): PATIENT C/O FEVER, BODY ACHES, AND COUGH THAT STARTED YESTERDAY HEENT Symptoms (Recalled from RN notes): No Resp Symptoms (Recalled from RN notes): Yes Skin Symptoms (Recalled from RN notes): No MS Symptoms (Recalled from RN notes): No Functional Status (Recalled from RN notes): WNL History of Present Illness Provider Complaint: Pt reports that around 11 am yesterday she started having fever, body aches, and cough. She states that she has had a slight increase in her SOA, but has other health issues that she attributes to this. She denies sick contact. She states she has taken Tylenol for her symptoms. Related Data Home Medications Medication Instructions Recorded Confirmed levothyroxine 75 mcg tablet 75 mcg PO DAILY 11/19/17 11/23/21 metformin 1,000 mg tablet 1,000 mg PO BID 11/19/17 11/23/21 duloxetine 60 mg capsule,delayed 60 mg PO BID 11/21/17 11/23/21 release (Cymbalta) amitriptyline 25 mg tablet 50 mg PO QHS 06/05/18 11/23/21 aspirin 81 mg tablet,delayed 81 mg PO DAILY 06/05/18 11/23/21 release (Adult Low Dose Aspirin) fingolimod 0.5 mg capsule ([employer]) 0.5 mg PO QHS 06/05/18 11/23/21 insulin degludec 100 unit/mL (3 50 unit SQ DAILY 03/09/20 11/23/21 mL) subcutaneous pen liraglutide 0.6 mg/0.1 mL (18 mg/3 1.8 mg SQ DAILY 03/09/20 11/23/21 mL) subcutaneous pen injector omeprazole 40 mg capsule,delayed 40 mg PO DAILY 03/09/20 11/23/21 release Previous Rx's Medication Instructions Recorded nitroglycerin 0.4 mg sublingual 0.4 mg sublingual Q5M PRN chest 06/05/18 tablet pain #30 tabs bisoprolol fumarate 5 mg tablet 5 mg PO DAILY #90 tabs 06/13/21 rosuvastatin 20 mg tablet (Crestor) 20 mg PO DAILY #90 tabs 06/13/21 spironolactone 25 mg tablet 25 mg PO DAILY #90 tabs 06/13/21 furosemide 20 mg tablet See Rx Instructions .Route 09/28/21 .COMPLEX #90 tabs verapamil 300 mg capsule 24hr See Rx Instructions .Route 03/23/[address],ext.release .COMPLEX #90 caps Allergies Allergy/AdvReac Type Severity Reaction Status Date / Time morphine [MORPHINE] Allergy Unknown Verified 11/23/21
[2022-05-30 09:31] LABS: UTC Influenza A Antigen Negative (Negative); UTC Influenza B Antigen Negative (Negative)
[2022-05-30 10:42] VITALS: BP 145/64; PULSE 90; RESP 22; TEMP 36.8; O2SAT 93
== END 2022-05-30 10:51 | disposition home or self-care (01) ==
PROVIDERS: Emergency Provider Nurse Practitioner Family; PCP Family Medicine
DX: J06.9 Acute upper respiratory infection, unspecified (principal)
CPT/HCPCS: 71046; 87804; 99212; C9803; G0463; U0003; U0005

== ENCOUNTER → 2022-11-15 13:29 | Outpatient (CLI) | payer MEDICARE, SELFPAY ==
[2022-11-15 14:40] LABS: Basophils # 0.1 K/mm3 (0-0.2); Eosinophils # 0.7 K/mm3 (0.0-0.4); Hemoglobin 12.5 g/dL (12.2-16.2); Mean Corpuscular HGB Conc 31.2 g/dL (31.8-35.4); Mean Corpuscular Hemoglobin 28.5 pg (27.0-31.2); Mean Corpuscular Volume 91.2 fl (81-99); Mean Platelet Volume 7.9 fl (7.4-10.4); Monocytes # 0.6 K/mm3 (0.1-1.0); Monocytes % 9.7 % (1.7-9.3); Neutrophils # 4.2 K/mm3 (1.8-7.8); Neutrophils % 63.4 % (37.0-80.0); Platelet Count 375 K/mm3 (142-424); Red Blood Count 4.39 M/mm3 (4.20-5.40); Red Cell Distribution Width 14.7 % (11.5-17.5); White Blood Count 6.6 K/mm3 (4.8-10.8)
[2022-11-15 15:07] LABS: Alanine Aminotransferase 34 U/L (12-78); Albumin Level 4.7 g/dl (3.5-5.0); Alkaline Phosphatase 85 U/L (38-126); Anion Gap 15.3 mEq/L (5-15); Aspartate Amino Transferase 40 U/L (14-36); Bilirubin,Total 0.5 mg/dl (0.2-1.3); Blood Urea Nitrogen 12 mg/dl (7-17); Calcium 8.9 mg/dl (8.4-10.2); Carbon Dioxide 26 mmol/L (22.0-30.0); Chloride 99 mmol/L (98-107); Estimated Glomerular Filt Rate 74 ml/min (>60); GFR (African American) 90 ML/MIN (>60); Globulin 2.3 g/dL (1.3-3.2); Glucose 131 mg/dl (74-100); Potassium 4.3 mmoL/L (3.5-5.1); Sodium 136 mmol/L (136-145)
[2022-11-15 15:22] LABS: 25-OH Vitamin D, Total 99.6 ng/mL (30-100)
[2022-11-15 15:35] LABS: Thyroid Stimulating Hormone 0.94 uIU/mL (0.465-4.68)
[2022-11-15 16:11] LABS: Folate > 20.00 ng/mL
[2022-11-15 20:32] LABS: Vitamin B12 870 pg/mL (239-931)
[2022-11-19 10:14] LABS: Vitamin B6 5.9 ug/L (3.4-65.2)
[2022-11-20 06:04] LABS: Vitamin B1 118.8 nmol/L (66.5-200.0)
== END ==
PROVIDERS: PCP Family Medicine; Visit Provider Nurse Practitioner
DX: G35 Multiple sclerosis (principal); E53.8 Deficiency of other specified B group vitamins; E55.9 Vitamin D deficiency, unspecified; R53.82 Chronic fatigue, unspecified
CPT/HCPCS: 36415; 80053; 82306; 82607; 82746; 84207; 84425; 84443; 85025

== ENCOUNTER → 2023-01-29 08:03 | Outpatient (CLI) | payer MEDICARE, SELFPAY ==
--- NOTE | 2023-01-29 08:07 | MM_ITS ---
PROCEDURE INFORMATION: Exam: MG Bilateral Screening 3D Mammography Exam date and time: 01/29/2023 8:07 AM Age: 57 years old Clinical indication: Screening examination TECHNIQUE: Imaging protocol: Bilateral Screening tomosynthesis and 2D mammography including computer-aided detection (CAD) when performed. COMPARISON: 1. MG MM DIG SCREENING MAMM BI W/CAD 11/17/2020 7:56 AM 2. MG SCBI MM Dig screening mamm BI w/CAD 01/01/2018 9:12 AM FINDINGS: MAMMOGRAPHY: Breast composition: The breasts are heterogeneously dense, which may obscure small masses. Mass: None. Architectural distortion: None. Calcifications: No suspicious calcifications. Asymmetric density: None. Skin thickening: None. Axillary adenopathy: None. IMPRESSION: No mammographic evidence of malignancy. Annual screening is recommended unless otherwise clinically indicated. ASSESSMENT: BI-RADS Category 1: Negative
--- NOTE | 2023-01-29 08:08 | XR_ITS ---
FINAL REPORT TECHNIQUE: Bone densitometry calculations of the lumbar spine and left hip were obtained. CLINICAL HISTORY: post menopausal FINDINGS: Using L1-4, the bone mineral density of the spine is 1.002 g/cm2, corresponding to T-score of -0.4. Using the left hip, the bone mineral density of the femoral neck is 0.87 g/cm2, corresponding to a T-score of -0.5. NOTE: T-score: Standard deviation compared with peak bone mass of young adult mean. *Following the recommendations of the International Society of Bone densitometry, classification of hip BMD is based on the lower of two T-scores; total hip or femoral neck. IMPRESSION: Normal bone mineral density of the lumbar spine and hip. Reviewed, Interpreted and Dictated by Ger Major III, MD Transcribed by Aviva Montenegro Authenticated and [facility]
== END ==
PROVIDERS: PCP Family Medicine; Visit Provider Physician Assistant
DX: Z12.31 Encounter for screening mammogram for malignant neoplasm of breast (principal); Z78.0 Asymptomatic menopausal state
CPT/HCPCS: 77063; 77067; 77080

== ENCOUNTER 2023-09-10 10:15 | Outpatient (CLI) | payer MEDICARE, SELFPAY ==
--- NOTE | 2023-09-10 10:22 | XR_ITS ---
FINAL REPORT CLINICAL HISTORY: PERSISTENT COUGH COMPARISON: 05/30/2022 FINDINGS: 2 views of the chest were obtained . The heart is normal in size. The mediastinum is within normal limits. The lungs are clear. There is no pneumothorax. Osseous structures are unremarkable. IMPRESSION: No acute cardiopulmonary process. Reviewed, Interpreted and Dictated by Leandro Guerra MD Transcribed by Aviva Montenegro Authenticated and [facility]
== END 2023-09-10 23:59 ==
PROVIDERS: PCP Family Medicine; Visit Provider Family Medicine
DX: R05.3 Chronic cough (principal)
CPT/HCPCS: 71046

== ENCOUNTER 2023-10-02 14:35 | Outpatient (POV) | payer MEDICARE, SELFPAY | END 2023-10-02 23:59 | disposition home or self-care (01) | LOC: SC 14:35 | PROVIDERS: PCP Family Medicine; Visit Provider Dermatology | DX: Z00.00 Encounter for general adult medical examination without abnormal findings (principal) ==

== ENCOUNTER 2023-11-27 07:29 | Outpatient (CLI) | payer MEDICARE, SELFPAY ==
[2023-11-27 08:45] VITALS: PULSE 78; PULSE 82
[2023-11-27] MEDS: ALBUTEROL 0.083% 2.5 MG/3 ML NEB IH (08:45)
== END 2023-11-27 23:59 | disposition home or self-care (01) ==
LOC: RT 07:30
PROVIDERS: PCP Family Medicine; Visit Provider Physician Assistant
DX: R06.2 Wheezing (principal)
CPT/HCPCS: 94060; 94640; 94726; 94729

== ENCOUNTER 2024-01-01 15:10 | Outpatient (CLI) | payer MEDICARE, SELFPAY ==
--- NOTE | 2024-01-01 15:54 | XR_ITS ---
FINAL REPORT CLINICAL HISTORY: COUGH.. COMPARISON: 05/30/2022 FINDINGS: Two views of the chest were obtained. The heart size and pulmonary vascularity are within normal limits. The mediastinum is normal. No acute pulmonary abnormality is identified. There is no pneumothorax. The bony thorax is intact. IMPRESSION: No active cardiopulmonary disease. Reviewed, Interpreted and Dictated by Ger Major III, MD Transcribed by Eileen Starr Authenticated and [facility]
--- NOTE | 2024-01-01 16:09 | MR_ITS ---
FINAL REPORT CLINICAL HISTORY: DEMYELLNATION DISEASE OF CENTRAL NERVOUS SYSTEM COMPARISON: 01/02/2022 FINDINGS: Multiplanar MR imaging of the brain was performed without contrast. There are multiple foci of abnormal T2 signal in the cerebral white matter, also seen on the prior MRI of 2021. The largest focus of abnormal signal is in the posterior right frontal lobe, measuring 8 mm in size, visually stable. There are 2 small foci of abnormal signal present in the left side of the brainstem, also visually stable. There is no evidence of intracranial hemorrhage or mass. The ventricular size is normal. There is no evidence of shift of the midline structures. No abnormal extra-axial fluid collection is identified. The posterior fossa and brainstem have an unremarkable appearance. No area of abnormal restricted diffusion is identified. Normal major vessel vascular flow voids are seen. There is a retention cyst or polyp present in the right maxillary sinus. IMPRESSION: Multiple foci of abnormal T2 signal, the largest in the posterior right frontal lobe as described above. In this patient with known demyelinating disease, no significant changes noted since the prior MR of December 2021. Reviewed, Interpreted and Dictated by Ger Major III, MD Transcribed by Eileen Starr Authenticated and . [facility]
--- NOTE | 2024-01-01 16:09 | MR_ITS ---
FINAL REPORT CLINICAL HISTORY: DEMYELLNATING DISEASE ON CENTRAL NERVOUS SYSTEM COMPARISON: 01/02/2022 FINDINGS: Multiplanar MR imaging of the cervical spine was performed without contrast. Motion is present on some images that somewhat limits overall image quality. On the sagittal T2-weighted images, disc degeneration is seen at multiple levels. There is no evidence of fracture. The vertebral alignment is normal. The cervical spinal cord has an unremarkable appearance without evidence of mass, edema or syrinx. No significant canal stenosis is identified. The cervicomedullary junction is normal. C2-3: Small uncovertebral osteophytes are present. There is no significant canal stenosis or neural foraminal narrowing. C3-4: An annular bulge is present with a small left paracentral disc protrusion. There is no significant canal stenosis or neural foraminal narrowing. C4-5: An annular bulge is present. There is no significant canal stenosis or neural foraminal narrowing. C5-6: Disc osteophyte complex is present with a small left paracentral disc protrusion. There is no significant canal stenosis or neural foraminal narrowing. C6-7: Disc osteophyte complex is present with a small left paracentral disc protrusion and mild left neural foraminal narrowing. C7-T1: There is no significant canal stenosis or neural foraminal narrowing. IMPRESSION: Mild multilevel degenerative change is present without evidence of significant canal stenosis or neural foraminal narrowing. No abnormal signal is identified in the cervical spinal cord in this patient with known demyelinating disease. Reviewed, Interpreted and Dictated by Ger Major III, MD Transcribed by Eileen Starr Authenticated and . [facility]
[2024-01-05 11:25] LABS: Miscellaneous Test SCANNED IMAGE
== END 2024-01-01 23:59 | disposition home or self-care (01) ==
LOC: RAD 15:12
PROVIDERS: PCP Physician Assistant; Visit Provider Nurse Practitioner
DX: G35 Multiple sclerosis (principal); G37.9 Demyelinating disease of central nervous system, unspecified; R05.9 Cough, unspecified
CPT/HCPCS: 36415; 70551; 71046; 72141

== ENCOUNTER 2024-06-05 10:18 | Outpatient (CLI) | payer MEDICARE, SELFPAY ==
--- NOTE | 2024-06-05 10:23 | CT_ITS ---
FINAL REPORT TECHNIQUE: Routine axial images were obtained from the lung apices to below the diaphragm following IV contrast administration. Individualized dose reduction techniques using automated exposure control or adjustment of the mA and/or kV according to the patient size were employed. CLINICAL HISTORY: CHRONIC COUGH COMPARISON: 01/01/2024 FINDINGS: No acute lung disease is present. No pleural or pericardial effusion is seen. No adenopathy or mass lesion is present. Limited imaging of the upper abdomen demonstrates postoperative change of cholecystectomy. IMPRESSION: Unremarkable. Reviewed, Interpreted and Dictated by Leandro Guerra MD Transcribed by Aviva Montenegro Authenticated and [facility]
[2024-06-05] MEDS: IOPAMIDOL-370 (76%);100ML BOTTLE 75 ML IV (10:54)
[2024-06-05] MEDS: SODIUM CHLORIDE 0.9% 10ML SYR (RAD ONLY) 10 ML IV (10:54)
== END 2024-06-05 23:59 | disposition home or self-care (01) ==
LOC: RAD 10:19
PROVIDERS: PCP Physician Assistant; Visit Provider Physician Assistant
DX: R05.3 Chronic cough (principal); R06.2 Wheezing
CPT/HCPCS: 71260; Q9967

== ENCOUNTER 2024-11-26 10:57 | Outpatient (CLI) | payer MEDICARE, SELFPAY ==
--- NOTE | 2024-11-26 | CA_ITS ---
APPROVED REPORT EXAM: Comprehensive 2D, Doppler, and color-flow Echocardiogram Service Secretary: Kimberly Bush CRT Ht: 5 ft 2 in Wt: 120lbs BSA: 1.54 BP: 109/66 mmHg Indications: Shortness of Breath, Diabetes, CAD, Hyperlipidemia, Hypertension/HDD, myocardial bridge 2D Dimensions LA Volume 20.00 mL LA Volume Index 12.99 mL/m2 (M/F) 16-34 M-Mode Dimensions RVDd 2.14 cm (0.9-2.6) LA Diam 2.75 cm (1.9-4.0) LVDd 3.62 cm (3.5-5.7) LVDs 2.52 cm (3.5-5.7) IVSd 1.13 cm (0.6-1.1) PWd 0.49 cm (0.6-1.1) EF (Teich) 58.70% FS 30.40% EDV (Teich) 55.20 mL TAPSE 2.09 (<1.7) ESV (Teich) 22.80 mL LV Diastology E Decel Time 80 (160-240 msec) E/A Ratio 0.94 MED A' 10.00 cm/s LAT A' 14.40 cm/s Aortic Valve AO Peak GR. 9.10 mmHg Mitral Valve MV A Velocity 89.0 (40-130 cm/s) E/A Ratio 0.94 Pulmonary Valve PV Peak Velocity 159.0 (50-150 cm/s) Tricuspid Valve TR P. Velocity 158.00 cm/s RAP Estimate 10.00 mmHg RVSP 20.00 mmHg Left Ventricle The left ventricle is normal size. The left ventricular systolic function is normal. The left ventricular ejection fraction is within the normal range. There is increased LV wall thickness. There is normal LV segmental wall motion. Transmitral Doppler flow pattern suggests impaired LV relaxation. LVEF is 60%. Right Ventricle The right ventricle is normal size. The right ventricular systolic function is normal. Atria The left atrium size is normal. The right atrium size is normal. There is no Doppler evidence of interatrial shunt. Aortic Valve Aortic valve is mildly thickened. There is no aortic valvular stenosis. No aortic regurgitation is present. Mitral Valve The mitral valve is normal in structure. No evidence of mitral valve stenosis. Trace mitral regurgitation. Tricuspid Valve Tricuspid valve is grossly normal in structure and function. Trace tricuspid regurgitation. There is insufficient TR jet to estimate RVSP. Pulmonic Valve The pulmonary valve is normal in structure. Trace pulmonic regurgitation. Great Vessels The aortic root is normal in size. IVC is normal in size and collapses >50% with inspiration. Pericardium There is no pericardial effusion. Other Information Study Quality: Fair Conclusion Normal biventricular systolic function. No significant valvular stenosis or regurgitation. Electronically signed by : Vandana Doan MD 12/01/2024 00:23:22
[2024-11-26 12:15] VITALS: BMI 24.5
[2024-11-26] MEDS: IVABRADINE HCL 7.5MG TABLET PO (12:26)
[2024-11-26] MEDS: METOPROLOL TARTRATE 50MG TABLET PO (12:27)
[2024-11-26 12:33] VITALS: BP 120/79; PULSE 82; RESP 16; TEMP 36.4; O2SAT 100
[2024-11-26 12:34] LABS: Chloride 102 mmol/L (98-107); Sodium 137 mmol/L (136-145)
[2024-11-26 12:35] LABS: Potassium 4.1 mmoL/L (3.5-5.1)
[2024-11-26 12:37] LABS: Blood Urea Nitrogen 10 mg/dl (7-17); Creatinine Clearance Estimated 83 mL/min (50-200); Estimated Glomerular Filt Rate 86 ml/min (>60); GFR (African American) 104 ML/MIN (>60)
[2024-11-26 12:38] LABS: Anion Gap 15.1 mEq/L (5-15); Calcium 9.2 mg/dl (8.4-10.2); Carbon Dioxide 24 mmol/L (22.0-30.0); Glucose 98 mg/dl (74-100)
--- NOTE | 2024-11-26 13:00 | CT_ITS ---
APPROVED REPORT Adjunct Mathematics Instructor: CLINICAL INDICATION Chest Pain TECHNIQUE Image Acquisition: A 128 slice MDCT scanner (Fishbowla View) was used for data acquisition. A noncontrast coronary calcium scan was performed. A CT attenuation threshold of 130 Hounsfield units (HU) was used for the detection of calcium in contiguous voxels of 1 sq mm in area to be counted as individual lesions. Bolus tracking in the ascending aorta with a threshold of 180 HU was performed. Immediately afterwards, ECG synchronized cardiac CT was then performed from the cardiac base to apex using retrospective gating with ECG tube current modulation. A total of 85 mL of Isovue 370 mg/mL contrast medium was administered at 5 mL/sec followed by a saline flush using a biphasic injection protocol. A tube voltage of 120 KVp was used. The patient received the following medications prior to the cardiac CT. 50 mg of oral metoprolol 15 mg of oral ivabradine 0.4 mg of sublingual nitroglycerin The average heart rate at the time of acquisition was 59 bpm and regular. Image Reconstruction Transaxial images were reconstructed at 0.67 mm slide thickness. Data was reviewed interactively on an advanced workstation capable of 2 and 3-dimensional displays in all conventional reconstruction formats, including multiplanar reformations, maximum intensity projections, curved multiplanar reformations, and volume rendered reconstructions. When applicable, selected routine images describing the relevant coronary anatomy and pathology were saved and sent to PACS. Complications None Technical Quality Overall image quality was good. Coronary artery opacification was adequate. Total DLP (Dose-Length Product) is 1503.8 mGy-cm. The reported value represents the total of one or more individual components during the CT acquisition of this date and at this time, and as such, the same value may appear in more than one CT report depending on the interpreting/reporting physicians. COMPARISON None FINDINGS CT Coronary Calcium Scoring LMA (Left Main Artery) = 0 LAD (Left Anterior Descending) = 63 LCX (Left Coronary Circumflex) = 0 RCA (Right Coronary Artery) = 0 Total Calcium Score = 63 using the AJ-130 method. The observed calcium score of 63 is at 69th percentile for subjects of the same age, sex, and race/ethnicity. The interpretation of the calcium heart score is based on the following continuum*: 0 = no calcified plaque detected (risk of coronary artery disease is very low ??? less than 5%) 1-10 = calcium detected in extremely minimal levels (risk of coronary diseases is still low ??? less than 10%) 11-100 = mild levels of plaque detected with certainty (mild or minimal narrowing of heart arteries is likely) 101-400 = definite,at least moderate levels of plaque detected (relatively high risk of a heart attack within 3-5 years) >401-999 = extensive levels of plaque detected (high risk of heart attack, high levels of vascular disease are present, high likelihood of at least one significant coronary narrowing) *The calcium heart score quantifies the burden of coronary calcification/plaque in the coronary arteries. The calcium heart score is not able to evaluate the presence or burden of non-calcified (i.e. soft) plaque. Coronary CT Angiography The coronary arterial system is right dominant. Quantitative Stenosis Grading: Left Main (LM): The left main originates normally from the left sinus of Valsalva. The LM bifurcates into the left anterior descending artery and left circumflex artery. The LM is patent with no evidence of atherosclerosis. Left Anterior Descending (LAD) and Diagonal Branches: The LAD gives off 3 diagonal branch(es). There is mixed calcified/non-calcified plaque in the proximal and mid-LAD segments, including the first diagonal branch, with up to 25-49% luminal stenosis. There is no evidence of LAD-myocardial bridge. Left Circumflex (LCX) and Obtuse Marginals (OM): The LCX gives off 1 Obtuse Marginal (OM) branch(es). The LCX and its branches are patent with no evidence of atherosclerosis. Right Coronary Artery (RCA): The RCA originates normally from the right sinus of Valsalva. The RCA gives off a posterior descending artery (PDA) and posterolateral (PL) branches. There is non-calcified plaque in the ostial RCA, with up to 25-49% luminal stenosis. Non-Coronary Cardiac Findings: Analysis of the left ventricular (LV) structure and function was performed after 3-D reconstruction of the LV from axial images, with user-corrected automatic contouring for assessment of LV volumes and user-defined reconstruction from oblique planes for measurement of 3-D cardiac structure and function. -The left ventricle systolic function is normal. -There is no left atrial appendage filling defect. Two right pulmonary veins and two left pulmonary veins drain normally into the left atrium. -No pericardial thickening or calcification. -Central and branch pulmonary arteries in the [id number]-sw-gebi are unremarkable. -Thoracic aorta within the visualized thoracic aortic-branches in the [id number] is unremarkable. Extracardiac Structures No significant extra-cardiac findings. Note, however, that this study is focused on the cardiac findings. IMPRESSION -Presence of coronary calcification with an Agatston score = 63 using the AJ-130 method. -The observed calcium score of 63 is at 69th percentile for subjects of the same age, sex, and race/ethnicity. -Mild, non-obstructive atherosclerotic coronary disease in the LAD and ostial RCA, with no evidence of significant flow-limiting atherosclerosis of the coronary arteries. -CAD-RADS 2. Management recommendations per ACC/AHA guidelines*, as clinically appropriate. *Recommendations: CAD RADS 0: Reassurance. Consider non-atherosclerotic causes of chest pain. CAD RADS 1: Consider non-atherosclerotic causes of chest pain. Consider preventive therapy and risk factor modification. CAD RADS 2: Consider non-atherosclerotic causes of chest pain. Consider preventive therapy and risk factor modification, particularly for patients with nonobstructive plaque in multiple segments. CAD RADS 3: Consider further functional testing. Consider symptom-guided anti-ischemic and preventive pharmacotherapy as well as risk factor modification per published guideline statements. CAD RADS 4A: Consider further functional testing or invasive coronary angiography with revascularization per published guideline statements. Consider symptom-guided anti-ischemic and preventive pharmacotherapy as well as risk factor modification per published guideline statements. CAD RADS 4B: Invasive coronary angiography recommended with revascularization per published guideline statements. Consider symptom-guided anti-ischemic and preventive pharmacotherapy as well as risk factor modification per published guideline statements. CAD RADS 5: Consider invasive angiography and/or viability assessment with revascularization per published guideline statements. Consider symptom-guided anti-ischemic and preventive pharmacotherapy as well as risk factor modification per published guideline statements. CRITICAL RESULT None COMMUNICATION Per this written report The coronary and cardiac findings of this CCTA were reviewed, reported, and signed by Eddie Doan MD ([facility] Tender) Conclusion Electronically signed by : Vandana Doan MD 12/01/2024 12:24:06
[2024-11-26 13:50] VITALS: BP 117/49; PULSE 64; RESP 16; O2SAT 98
[2024-11-26] MEDS: SODIUM CHLORIDE 0.9% 10ML SYR (RAD ONLY) 10 ML IV (13:52)
[2024-11-26] MEDS: 0.9 % SODIUM CHLORIDE 50 ML VIAL IV (13:52)
[2024-11-26] MEDS: IOPAMIDOL-370 (76%);100ML BOTTLE 85 ML IV (13:53)
[2024-11-26 14:00] VITALS: BP 113/47; PULSE 66; RESP 16; O2SAT 100
== END 2024-11-26 14:04 | disposition home or self-care (01) ==
PROVIDERS: PCP Physician Assistant; Visit Provider Internal Medicine
DX: I25.10 Atherosclerotic heart disease of native coronary artery without angina pectoris (principal); Q24.5 Malformation of coronary vessels; I10 Essential (primary) hypertension
CPT/HCPCS: 75574; 80048; 93306; Q9967

== ENCOUNTER 2025-05-11 08:06 | Outpatient (CLI) | payer MEDICARE, SELFPAY ==
--- OUTSIDE RECORDS SUMMARY | 2024-07-07 07:15 | XMS_ITS ---
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 Role Phone Paolo See Primary Care Provider [phone] REASON FOR VISIT flu shot Immunizations Vaccine Route Administration Date Status Comme nts Fluzone Quad (6months&older) IM Intramuscular 07/07/2024 Administered Encounters Encounter Location Date Provider Diagnosis [facility] [address] [facility] [address] [place] [id number] 07/07/2024 Paolo See Encounter for immunization Z23 Assessments Encounter Date Diagnosis (ICD Code) Assessment Notes Treatment Notes Treatment Clinical Notes Section Notes 07/07/2024 Encounter for immunization (ICD-10 - Z23) Plan Of Treatment No Information Progress Notes * JONAHJose ISAACaDOB: 8 (59 yo F)Acc No.[id number]:07/07/2024 Patient: S Alison MILLER Provider: Anthony See M.D. :1965 A ge:58 Y S ex:Female Date:07/07/2024 Address:[id number] Subjective: * Chief Complaints: * 1 . Flu shot. * Medical History: Objective: * Vitals: Assessment: * Assessment: 1. E ncounter for immunization - Z23 (Primary) Plan: * Treatment: * Immunizations: Fluzone Quad (6months&older) : 0.5 mL (Route: Intramuscular) given by STACEY Humphrey on Right Deltoid (Encounter for immunization) * Images: Billing Information: * Visit Code: * Procedure Codes: * Electronic signature of Ashley See MD on 05/11/2025 at 08:47 AM EDT Sign off status: Pending * Provider: Anthony See M.D. Date: 1 09/06/2023 Generated for [place] kaye/Miguel/Jenniferitting on: 0 05/11/2025 08:47 AM EDT
--- OUTSIDE RECORDS SUMMARY | 2024-09-03 09:15 | XMS_ITS ---
Author Organization [facility] Address [address] [facility] [address] [place], [place] [id number] Care Team Providers Care Shadow Graph Weight Operator Name Role Phone Paolo See Primary Care Provider [phone] Nory Lujan Unavailable [phone] Allergies Allergen (clinical drug ingredient) Drug/Non Drug Allergy documented on EMR Reaction Allergy Type Onset Date Status Iodinated contrast media (substance) Iodinated Contrast Media Unknown Drug Allergy Active morphine Morphine Unknown Drug Allergy Active Results Component Value Reference Range Notes CBC Venipuncture (in house) Reviewed date:09/05/2024 11:03:48 AM Interpretation: Performing Lab: Notes/Report: wbc 6.3 3.5 - 10 lymph 14.5 15 - 50 mid 4.2 2 - 15 gran 81.3 35 - 80 rbc 4.38 3.5 - 5.5 hgb 12.9 11.5 - 16.5 hct 39.1 35 - 55 mcv 89.3 75 - 100 mch 29.4 25 - 35 mchc 32.9 31 - 38 platlet 319 100 - 400 Glycohemoglobin A1c (in hous e) Reviewed date:09/05/2024 11:03:48 AM Interpretation:5.3% Performing Lab: Notes/Report: 5.3% glycohemoglobin 5.3% 5 - 6.5 % P-Vitamin B12 Reviewed date:09/05/2024 12:41:12 PM Interpretation:Normal Performing Lab: Notes/Report: Test performed by [facility] [address] [place] [address] , [address], [place] [address] Jamey Mejia MD, Wellness Consultant CLIA: [id number] Vitamin B12 [phone] pg/mL P-Comprehensive Metabolic Pa tammy (CMP) Reviewed date:09/05/2024 12:41:12 PM Interpretation:gluc 62 Performing Lab: Notes/Report: Test performed by [facility] [address] [place] [address] , [address], [place] [address] Jamey Mejia MD, Wellness Consultant CLIA: [id number] Sodium 139 135-145 mmol/L Potassium 4.9 3.5-5.3 mmol/L Chloride 103 97-108 mmol/L CO2 24 22-32 mmol/L Glucose 62 65-99 mg/dL BUN 14 6-20 mg/dL Creatinine 0.64 0.50-1.00 mg/dL Calcium 9.6 8.6-10.4 mg/dL eGFR by Creatinine 103 >59 mL/min/1.73m2 Protein 6.6 6.0-8.3 g/dL Albumin 4.6 3.5-5.3 g/dL Alkaline Phosphatase 58 35-121 IU/L ALT (SGPT) 30 <5-47 IU/L AST (SGOT) 23 <5-40 IU/L Bilirubin, Total <0.2 <0.2-1.2 mg/dL A/G Ratio 2.3 1.1-2.5 P-T4 Free (thyroxine) Reviewed date:09/05/2024 12:41:12 PM Interpretation:Normal Performing Lab: Notes/Report: Test performed by [facility] [address] [place] [address] , [address], [place] [address] Jamey Mejia MD, Wellness Consultant CLIA: [id number] Thyroxine Free (free T4) 1.09 0.86-1.76 ng/dL P-Lipid Panel Reviewed date:09/05/2024 12:41:12 PM Interpretation:trig 370 Performing Lab: Notes/Report: Test performed by [facility] [address] [place] [address] , [address], [place] [address] Jamey Mejia MD, Wellness Consultant CLIA: [id number] Cholesterol 148 <200 mg/dL Triglycerides 370 <150 mg/dL HDL Cholesterol 61 >39 mg/dL Cholesterol / HDL Ratio 2.43 0.00-4.44 Ratio Non-HDL Cholesterol 87 <130 mg/dL LDL Cholesterol (Calculation) 13 <130 mg/dL LDL Cholesterol Levels* Less than 100 mg/dL Optimal 100 to 129 mg/dL Near Optimal/ Above Optimal 130 to 159 mg/dL Borderline High 160 to 189 mg/dL High 190 mg/dL and above Very High * Categories as recommended by the 2004 ATPIII guidelines LDL/HDL Ratio 0.2 <3.3 Ratio LDL Cholesterol Patient History Test Date: 11/21/2023 LDL Results: 50 Units: mg/dL % Change: - Test Date: 05/21/2024 LDL Results: 37 Units: mg/dL % Change: -26% Test Date: 09/03/2024 LDL Results: 13 Units: mg/dL % Change: -64% P-TSH Reviewed date:09/05/2024 12:41:12 PM Interpretation:Normal Performing Lab: Notes/Report: Test performed by [facility] [address] [place] [address] [place] [address] Jamey Mejia MD, Wellness Consultant CLIA: [id number] TSH 1.64 0.43-5.25 mU/L P-Microalbumin/Creatinine, R andom Urine Sample Reviewed date:09/22/2024 04:19:48 PM Interpretation: Performing Lab: Notes/Report: P-Vitamin D 25-Hydroxy Reviewed date:09/05/2024 12:41:12 PM Interpretation:69.3 Performing Lab: Notes/Report: Test performed by [facility] [address], [place] [address] Jamey Mejia MD, Wellness Consultant CLIA: [id number] Vitamin D 25-Hydroxy 69.3 30.0-100.0 ng/mL Interpretation of Vitamin D 25 OH: < 20 ng/mL - Deficiency 20 - 29 ng/mL - Insufficiency 30 - 100 ng/mL - Sufficiency > 100 ng/mL - Super-therapeutic- toxicity may occur above this level. Clinical correlation required. REASON FOR VISIT 3 month check and AWV, Due for Diabetic Eye Exam Medications Medication SIG (Take, Route, Frequency, Duration) Notes Start Date End Date Status Rosuvastatin Calcium 20 MG TAKE 1 TABLET BY MOUTH EVERY DAY AT BEDTIME; Duration: 90 days Active Tresiba 100 UNIT/ML 20 units Subcutaneou s once daily 15 units a day 06/25/2024 Active Omeprazole 40 MG Take 1 capsule by mouth once daily at bedtime; Duration: 90 Active Ozempic (2 MG/DOSE) 8 MG/3ML 2mg Subcutaneous once a week 05/21/2024 Active Levothyroxine Sodium 75 MCG 1 tab(s) orally once a day; Duration: 90 days Active FreeStyle Yanna 3 Sensor - as directed 09/03/2024 Active BD Pen Needle Radha 2nd Gen 32G X 4 MM USE 1 NEEDLE TWICE DAILY; Duration: 90 Active metFORMIN HCl ER 500 MG Take 2 tablets b y mouth twice daily; Duration: 90 days Active Accu-Chek Guide - USE 1 STRIP THREE TIMES DAILY; Duration: 34 Active Albuterol Sulfate HFA 108 (90 Base) MCG/ACT 1 puff as needed Inhalation every 4 hrs 11/21/2023 Active Verapamil HCl ER 300 MG 1 cap(s) orally qhs Active Amitriptyline HCl 25 MG 1 tab(s) orally once a day (at bedtime); Duration: 30 day(s) Active FreeStyle Yanna 3 [place] - as directed 09/03/2024 Active Gilenya 0.5 MG 1 cap(s) orally once a day; Duration: 30 day(s) Active Nystatin 442355 UNIT/GM 1 ye applied topically 2 times a day 12/21/2021 Active Cymbalta 60 MG 2 cap(s) orally once a day; Duration: 30 09/11/2016 Active Vitamin D3 125 MCG (5000 UT) 2 cap(s) orally once a day Active B-12 1000 MCG 1 tab(s) orally once a day; Duration: 30 day(s) Active Vitamin B-6 100 MG 1 tablet Orally Once a day; Duration: 30 day(s) Active Aspirin 81 81 MG 1 tablet Orally Once a day; Duration: 30 day(s) Active Vital Signs Weight 128.6 lbs 09/03/2024 Blood pressure systolic 124 mm Hg 09/03/19 25 Blood pressure diastolic 84 mm Hg 025 Heart Rate 79 /min 09/03/2024 Height 65 in 09/03/2024 BMI 21.40 kg/m2 09/03/2024 Encounters Encounter Location Date Provider Diagnosis [facility] [address] [id number] 09/03/2024 Nory Lujan Adult general medica l examination Z00.00 ; Type 2 diabetes mellitus without complications E11.9 ; Gastroesophageal reflux disease without esophagitis K21.9 ; 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 ; Essential (primary) hypertension I10 ; Mixed hyperlipidemia E78.2 ; Hypothyroidism (acquired) E03.9 ; MS (multiple sclerosis) G35 ; Depression, unspecified depression type F32.9 ; Chronic diastolic congestive heart failure I50.32 ; Vitamin B12 deficiency E53.8 ; Vitamin D deficiency E55.9 ; Polyarthralgia M25.50 ; Screening mammogram, encounter for Z12.31 ; Osteoporosis screening Z13.820 and BMI 21.0-21.9, adult Z68.21 Assessments Encounter Date Diagnosis (ICD Code) Assessment Notes Treatment Notes Treatment Clinical Notes Section Notes 09/03/2024 Adult general medical examination (ICD-10 - Z00.00) Patient instructed to return to office Annually for Annual Wellness Visits to include annual screenings of Pain assessment, Functional Ability assessment, Cognitive Ability assessment, Fall Risk assessment, Depression screening and Bladder control screening. 09/03/2024 Type 2 diabetes mellitus without complications (ICD-10 - E11.9) 09/03/2024 Gastroesophageal reflux disease without esophagitis (ICD-10 - K21.9) 09/03/2024 nursing home current use of insulin (ICD-10 - Z79.4) 09/03/2024 Essential (primary) hypertension (ICD-10 - I10) 09/03/2024 Mixed hyperlipidemia (ICD-10 - E78.2) 09/03/2024 Hypothyroidism (acquired) (ICD-10 - E03.9) 09/03/2024 MS (multiple sclerosis) (ICD-10 - G35) 09/03/2024 Depression, unspecified depression type (ICD-10 - F32.9) 09/03/2024 Chronic diastolic congestive heart failure (ICD-10 - I50.32) 09/03/2024 Vitamin B12 deficiency (ICD-10 - E53.8) 09/03/2024 Vitamin D deficiency (ICD-10 - E55.9) 09/03/2024 Polyarthralgia (ICD-10 - M25.50) 09/03/2024 Screening mammogram, encounter for (ICD-10 - Z12.31) 09/03/2024 Osteoporosis screening (ICD-10 - Z13.820) 09/03/2024 BMI 21.0-21.9, adult (ICD-10 - Z68.21) Plan Of Treatment Medication Medication Name Sig Start Date Stop Date Notes FreeStyle Yanna 3 Sensor - as directed 09/03/2024 FreeStyle Yanna 3 [place] - as directed 09/03/2024 Treatment Notes Assessment Notes Adult general medical examination Patien t instructed to return to office Annually for Annual Wellness Visits to include annual screenings of Pain assessment, Functional Ability assessment, Cognitive Ability assessment, Fall Risk assessment, Depression screening and Bladder control screening. Pending Test Test Name Order Date Bone density 09/03/2024 Mammogram 09/03/2024 Next Appt Details Follow Up: As directed by , Reason: Progress Notes * Nicole MCKENZIEB: 8 (59 yo F)Acc No.[id number]:09/03/2024 Annual Wellness Visit Patient: Alison EPREZ Provider: RJ Lozano :1965 A ge:58 Y S ex:Female Date:09/03/2024 Address:[address] [place] [address], [facility], [id number] Pcp:Paolo See Subjective: * Chief Complaints: * 1 . 3 month check and AWV. 2. Due for Diabetic Eye Exam. * HPI: H PI: 58 year old female presents with c/o Patient is here today for?a scheduled 3 month c heck up and a Medicare Annual Wellness Visit. Pt sts she needs her A 1C checked. Pt sts she has no concerns or complaints at this time. * ROS: D ERMATOLOGY: no R karthikeyan. n o H sheela. G ASTROENTEROLOGY: no N ausea. n o V omiting. n o D iarrhea.? O PTHALMOLOGY: Negative for d enies vision issues. U ROLOGY: no D ifficulty urinating. n o B lood in urine. * Medical History: M ultiple Sclerosis, followed by Neurology, RT Eye Blindness - disqualifies patient from driving, Type 2 Diabetes, Hypercholestrolemia, Hypertriglyceridemia, Dystolic Congestive Heart Failure, Depression with anxiety. * Surgical History: A ppendectomy 1986, Back 1987, 1990, Shoulder Repair 1993, Cholecystectomy 2013, RT Knee Triple T 2011, Umbilical Hernia Repair 2009, Umbilical Hernia Repair- Dr. Foster . * Hospitalization/Major Diagno stic Procedure: o ut patient MS flair up , Chest Pain- [facility] 09/2009, Vomitting- [facility] ER 08/30/2014, MS Exacerbation- 01/24/2016. * Family History: F ather: alive, diagnosed with Diabetes, Hypertension, Heart Disease. M other: alive, diagnosed with Heart Disease. P aternal Grand Father: , heart disease. P aternal Grand Mother: , cancer, diagnosed with Diabetes, Cancer. M aternal Grand Father: , cancer, prostate. M aternal Grand Mother: , heart disease. 1 brother(s) - healthy. 1 son(s) - healthy. . * Social History: C URRENT TOBACCO USE S moking Status: Patient does NOT smoke. C affeine: yes, frequency:occasionally. Exercise: yes. Marital Status: . Past smoking status: no, Smoking status: Does not smoke. Alcohol: No. * Medications: T aking Vitamin B-6 100 MG Tablet 1 tablet Orally Once a day , Taking Aspirin 81 81 MG Tablet Delayed Release 1 tablet Orally Once a day , Taking Vitamin D3 125 MCG (5000 UT) Capsule 2 cap(s) orally once a day , Taking B-12 1000 MCG Tablet 1 tab(s) orally once a day , Taking Cymbalta 60 MG Capsule Delayed Release Particles 2 cap(s) orally once a day , Taking Gilenya 0.5 MG Capsule 1 cap(s) orally once a day , Taking Verapamil HCl ER 300 MG Capsule Extended Release 24 Hour 1 cap(s) orally qhs , Taking Amitriptyline HCl 25 MG Tablet 1 tab(s) orally once a day (at bedtime) , Taking Nystatin 321157 UNIT/GM Cream 1 ye applied topically 2 times a day , Taking Accu-Chek Guide - Strip USE 1 STRIP THREE TIMES DAILY , Taking Albuterol Sulfate HFA 108 (90 Base) MCG/ACT Aerosol Solution 1 puff as needed Inhalation every 4 hrs , Taking BD Pen Needle Radha 2nd Gen 32G X 4 MM Miscellaneous USE 1 NEEDLE TWICE DAILY , Taking metFORMIN HCl ER 500 MG Tablet Extended Release 24 Hour Take 2 tablets by mouth twice daily , Taking Ozempic (2 MG/DOSE) 8 MG/3ML Solution Pen-injector 2mg Subcutaneous once a week , Taking Levothyroxine Sodium 75 MCG Tablet 1 tab(s) orally once a day , Taking Tresiba 100 UNIT/ML Solution 20 units Subcutaneous once daily , Notes to Pharmacist: 15 units a day, Taking Omeprazole 40 MG Capsule Delayed Release Take 1 capsule by mouth once daily at bedtime , Taking Rosuvastatin Calcium 20 MG Tablet TAKE 1 TABLET BY MOUTH EVERY DAY AT BEDTIME , Medication List reviewed and reconciled with the patient * Allergies: M orphine, Iodinated Contrast Media. Objective: * Vitals: W t:128.6, Temp:97.9, BP:124/84, HR:79, Nurse:STACEY, Ht: 65, BMI:21.40. * Examination: G eneral Examination: General Appearance: N AD. H EENT: u nremarkable.?Oral cavity: n o lesions, mucosa moist and WNL, no erythema. N lidia: s upple, no lymphadenopathy. C hest: n ormal shape and expansion. H eart: R SR. L ungs: c lear to auscultation. A bdomen: bowel sounds present, soft and nontender, no organomegaly or masses, no guarding or rigidity. N eurologic Exam: I ntact, gait normal. S kin: n ormal, no rash. P eripheral pulses: n ormal (2+) bilaterally. E xtremities: n o leg edema. * Physical Examination: G ENERAL: Pain Assessment: P ain level:5 , on a scale of 0-10 (with 10 being extreme pain). F unctional Status Assessment: P atient response to question of how often physical health interferes with daily activities: occasionally. Able to perform ADLs-including meal preparation, grocery shopping, housework, laundry, taking medications or handling finances. Cognitive Status: alert and oriented. Ambulation Status: Fully ambulatory . F all Risk Assessment: I ndependant in ambulation, adequate lighting in home. Patient has fallen a nd had trouble walking within the past 12 months due to MS. D epression Screening: D enies depressed mood or anxiety. Describes emotional health as:calm/peaceful. B ladder Control Screening: S mall problem. Assessment: * Assessment: 1. A dult general medical examination - Z00.00 (Primary) 2 . T ype 2 diabetes mellitus without complications - E11.9 3 . G astroesophageal reflux disease without esophagitis - K21.9 4 . L tonia term current use of insulin - Z79.4 & #160; 5 . E ssential (primary) hypertension - I10 6 . M ixed hyperlipidemia - E78.2 7 . H ypothyroidism (acquired) - E03.9 8 . M S (multiple sclerosis) - G35 9 . D epression, unspecified depression type - F32.9 10. C hronic diastolic congestive heart failure - I50.32 1 1.?Vitamin B12 deficiency - E53.8 1 2. V itamin D deficiency - E55.9 ?13. P olyarthralgia - M25.50 1 4. S creening mammogram, encounter for - Z12.31 1 5. O steoporosis screening - Z13.820 1 6. B OH 21.0-21.9, adult - Z68.21 Plan: * Treatment: 2. T ype 2 diabetes mellitus without complications Start FreeStyle Yanna 3 [place] Device, -, as directed; S tart FreeStyle Yanna 3 Sensor Miscellaneous, -, as directed. L AB: P-Comprehensive Metabolic Panel (CMP) (Collection Date & Time - 09/03/2024 12:45 PM) g lennox 62 Value Reference Range A /G Ratio 2.3 1.1-2.5 - * A lbumin 4.6 3.5-5.3 - g/dL * A lkaline Phosphatase 58 35-121 - IU/L * A LT (SGPT) 30 <5-47 - IU/L * A ST (SGOT) 23 <5-40 - IU/L * B ilirubin, Total <0.2 <0.2-1.2 - mg/dL * B UN 14 6-20 - mg/dL * C alcium 9.6 8.6-10.4 - mg/dL * C hloride 103 97-108 - mmol/L * C O2 24 22-32 - mmol/L * C reatinine 0.64 0.50-1.00 - mg/dL * G lucose 62 L 65-99 - mg/dL * P otassium 4.9 3.5-5.3 - mmol/L * S odium 139 135-145 - mmol/L * P rotein 6.6 6.0-8.3 - g/dL * e GFR by Creatinine 103 >59 - mL/min/1.73m2 * Nory Lujan 09/05/2024 12 :41:01 PM > see TE ?LAB: Glycohemoglobin A1c (in house) (Collection Date & Time - 09/03/2024)? 5.3%* Value Reference Range g lycohemoglobin 5.3% 5 - 6.5 % * Juliana Arrington 09/03/2024 1:59: 38 PM >Provider reviewed results while patient in office. ?LAB: P-Microalbumin/Creatinine, Random Urine Sample (Collection Date & Time - 09/22/2024)* see duplicate order 3.?Essential (primary) hypertension?LAB: CBC Venipuncture (in house) (Collection Date & Time - 09/03/2024)* Value Reference Range w bc 6.3 3.5 - 10 * l ymph 14.5 15 - 50 * m id 4.2 2 - 15 * g ran 81.3 35 - 80 * r bc 4.38 3.5 - 5.5 * h gb 12.9 11.5 - 16.5 * h ct 39.1 35 - 55 * m cv 89.3 75 - 100 * m ch 29.4 25 - 35 * m chc 32.9 31 - 38 * p latlet 319 100 - 400 * Juliana Arrington 09/03/2024 1:56: 14 PM > Provider reviewed results while patient in office. 4.?Mixed hyperlipidemia?LAB: P-Lipid Panel (Collection Date & Time - 09/03/2024 12:45 PM)?trig 370 * Value Reference Range C holesterol / HDL Ratio 2.43 0.00-4.44 - Ratio * C holesterol 148 <200 - mg/dL * H DL Cholesterol 61 >39 - mg/dL * L DL Cholesterol (Calculation) 13 <130 - mg/d L * L DL/HDL Ratio 0.2 <3.3 - Ratio * N on-HDL Cholesterol 87 <130 - mg/dL * T riglycerides 370 H <150 - mg/dL * Nory Lujan 09/05/2024 12 :41:01 PM > see TE 5.?Hypothyroidism (acquired)?LAB: P-T4 Free (thyroxine) (Collection Date & Time - 09/03/2024 12:45 PM)? Normal* Value Reference Range T hyroxine Free (free T4) 1.09 0.86-1.76 - ng/d L * Nory Lujan 09/05/2024 12 :41:01 PM > see TE ?LAB: P-TSH (Collection Date & Time - 09/03/2024 12:45 PM)?Normal* Value Reference Range T SH 1.64 0.43-5.25 - mU/L * Nory Lujan 09/05/2024 12 :41:01 PM > see TE 6.?Vitamin B12 deficiency?LAB: P-Vitamin B12 (Collection Date & Time - 09/03/2024 12:45 PM)?Normal* Value Reference Range V itamin B12 113 934-1423 - pg/mL * Nory Lujan 09/05/2024 12 :41:01 PM > see TE 7.?Vitamin D deficiency?LAB: P-Vitamin D 25-Hydroxy (Collection Date & Time - 09/03/2024 12:45 PM)? 69.3* Value Reference Range V itamin D 25-Hydroxy 69.3 30.0-100.0 - ng/mL * Nory Lujan 09/05/2024 12 :41:01 PM > see TE 8.?Screening mammogram, encounter for?Imaging: Mammogram* Nory Lujan 09/03/2024 2: 09:32 PM > Pt would like this done in January with her DEXA, she will call back when ready to schedule 9.?Osteoporosis screening?Imaging: Bone density* Due after 01/29/2025, she kendall l call back when ready to schedule * Procedure Codes: G 0439 ANNUAL WELLNESS VST; PPS SUBSQT VST, G0444 ANNUAL DEPRESSION SCREENING 15 MIN, 1090F PRES/ABSN URINE INCON ASSESS, 3288F FALL RISK ASSESSMENT DOCD, 1170F FXNL STATUS ASSESSED, 1159F MED LIST DOCD IN RCRD, 1003F LEVEL OF ACTIVITY ASSESS, 98725 GLYCATED HEMOGLOBIN TEST, Modifiers: QW , 55257 CBC WITH AUTO DIFF, 1036F TOBACCO NON-USER, 4040F PNEUMOC IMM ORDER/ADMIN, 1125F AMNT PAIN NOTED PAIN PRSNT, G8420 BMI<30 AND >=22 CALC & DOCU, G8510 NEG SCR Depression PT NOT ELIG F/U/PLN DOC, 3044F HG A1C LEVEL LT 7.0%, G8752 MOST RECENT SYSTOLIC BP < 140MM HG, G8755 MOST RECENT DIASTOLIC BP >= 90MM HG * Preventive Medicine: Counseling: E motional health: P atient encouraged to try connecting with family or friends to boost mood. B ladder control: M ethods of controlling or managing leakage of urine discussed. E xercise: P atient advised to start, increase or maintain level of exercise/physical activity. I njury prevention: F all prevention discussed. Discussed need for cane/walker. Potential trip hazards discussed. Immunizations: T etanus u p to date. P neumococcal u p to date. I nfluenza u p to date. Screening / Special Tests: M ammogram R ecent history:01/29/2023, negative, recommended today. C olonoscopy R ecent history:10/13/2014, polyps, diverticulosis, repeat 5 years, scheduled 2023 but no record that patient had procedure, recommended, patient declines. B one mineral Density R ecent history: 01/29/2023, normal. D iabetic Retinal Eye Exam R ecent history:, recommended today. N ephrology History R ecent history: urine MA and gfr ordered today. * Follow Up: A s directed by * Images: Billing Information: * Visit Code: 50534 Office Visit, Est Pt., Level 3. Modifiers: 25 * Procedure Codes: G0439 ANNUAL WELLNESS VST; PPS SUBSQT VST. G0444 ANNUAL DEPRESSION SCREENING 15 MIN. 1090F PRES/ABSN URINE INCON ASSESS. 3288F FALL RISK ASSESSMENT DOCD. 1170F FXNL STATUS ASSESSED. 1159F MED LIST DOCD IN RCRD. 1003F LEVEL OF ACTIVITY ASSESS. 10514 GLYCATED HEMOGLOBIN TEST. Modifiers: QW 66272 CBC WITH AUTO DIFF. 1036F TOBACCO NON-USER. 4040F PNEUMOC IMM ORDER/ADMIN. 1125F AMNT PAIN NOTED PAIN PRSNT. G8420 BMI<30 AND >=22 CALC & DOCU. G8510 NEG SCR Depression PT NOT ELIG F/U/PLN DOC. 3044F HG A1C LEVEL LT 7.0%. G8752 MOST RECENT SYSTOLIC BP < 140MM HG. G8755 MOST RECENT DIASTOLIC BP >= 90MM HG. * Electronic signature of RJ Underwood on 05/11/2025 at 08:46 AM EDT Sign off status: Pending * Provider: RJ Lozano Date: 0 09/03/2024 Generated for Printi ng/Faxing/eTransmitting on: 0 05/11/2025 08:46 AM EDT History and Physical Notes * HPI (History of Present Illness) Category Sub-Category Detail Notes Category Not es HPI Patient is here today for a [facility] 3 month check up and a Medicare Annual Wellness Visit. Pt sts she needs her A1C checked. Pt sts she has no concerns or complaints at this time Physical Examination Category Sub-Category Detail Notes Section Note s GENERAL Pain Assessment: Pain level:5 , on a scale of 0-10 (with 10 being extreme pain) Functional Status Assessment: Patient response to question of how often physical health interferes with daily activities: occasionally. Able to perform ADLs-including meal preparation, grocery shopping, housework, laundry, taking medications or handling finances. Cognitive Status: alert and oriented. Ambulation Status: Fully ambulatory Fall Risk Assessment: Independant in amb ulation, adequate lighting in home. Patient has fallen and had trouble walking within the past 12 months due to MS Depression Screening: Denies depressed m ood or anxiety. Describes emotional health as:calm/peaceful Bladder Control Screening: Small problem Examination Category Sub-Category Detail Notes Category Not es General Examination HEENT: unremarkable Heart: RSR Lungs: clear to auscultatio n Abdomen: bowel sounds present , soft and nontender, no organomegaly or masses, no guarding or rigidity Extremities: no leg edema General Appearance: NAD Skin: normal, no rash Neurologic Exam: Intact, gait normal Neck: supple, no lymphaden opathy Oral cavity: no lesions, mucosa m oist and WNL, no erythema Peripheral pulses: normal (2+) bilatera lly Chest: normal shape and exp ansion
--- OUTSIDE RECORDS SUMMARY | 2024-09-05 09:30 | XMS_ITS ---
Author Organization [facility] Address [address] [place] [id number] Care Team Providers Care Seismology Technical Officer Name Role Phone Paolo See Primary Care Provider [phone] Nory Powell Unavailable [phone] Results Component Value Reference Range Notes P-Microalbumin/Creatinine, R andom Urine Sample Reviewed date:09/09/2024 02:41:38 PM Interpretation:Normal Performing Lab: Notes/Report: Test performed by [facility], [address] , [address], [place] [address] Jamey Mejia MD, Asset Protection Detective CLIA: [id number] Albumin/Creatinine Ratio, Urine 15 0-30 ug/m g Microalbumin, Urine, Random 3.3 Creatinine, Urine 224.2 Encounters Encounter Location Date Provider Diagnosis [facility] [address] [facility] [address] [place] [id number] 09/05/2024 Nory Lujan Essential (primary) hypertension I10 Assessments Encounter Date Diagnosis (ICD Code) Assessment Notes Treatment Notes Treatment Clinical Notes Section Notes 09/05/2024 Essential (primary) hypertension (ICD-10 - I10) Plan Of Treatment No Information Progress Notes * Nicole MCKENZIEB: 8 (59 yo F)Acc No.[id number]:09/05/2024 Patient: Jose ALMANZAAlison HOLLAND Provider: RJ Lozano :1965 A ge:58 Y S ex:Female Date:09/05/2024 Address:[facility] [place], [id number] Pcp:Paolo See Subjective: * Chief Complaints: * * Medical History: Objective: * Vitals: Assessment: * Assessment: 1. E ssential (primary) hypertension - I10 Plan: * Treatment: Value Reference Range A lbumin/Creatinine Ratio, Urine 15 0-30 - ug /mg * C reatinine, Urine 224.2 - mg/dL * M icroalbumin, Urine, Random 3.3 - mg/dL * Nory Lujan 09/09/2024 2: 41:21 PM > * Images: Billing Information: * Visit Code: * Procedure Codes: * Electronic signature of RJ Underwood on 05/11/2025 at 08:46 AM EDT Sign off status: Pending * Provider: RJ Lozano Date: 0 09/05/2024 Generated for [place] kaye/iMguel/eTransmitting on: 0 05/11/2025 08:46 AM EDT
--- OUTSIDE RECORDS SUMMARY | 2024-11-12 11:15 | XMS_ITS ---
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 Referred Provider Specialty Dermatology General Notes Nory Lujan 11/12 3:41:21 PM > Needs an appt at [facility] 11/12/2024 4:24:11 PM > submitted via [facility] portal Referral Priority Routine REASON FOR VISIT Skin Lesion in Head Medications Medication SIG (Take, Route, Frequency, Duration) Notes Start Date End Date Status Vitamin B-6 100 MG 1 tablet Orally Once a day; Duration: 30 day(s) Not-Pastor ing metFORMIN HCl ER 500 MG Take 2 tablets b y mouth twice daily; Duration: 90 Active Ozempic (2 MG/DOSE) 8 MG/3ML INJECT 2 MG SUBCUTANEOUSLY ONCE A WEEK; Duration: 28 Active Accu-Chek Guide Test - USE 1 STRIP THREE TIMES DAILY; Duration: 30 Active Levothyroxine Sodium 75 MCG 1 tab(s) orally once a day; Duration: 90 days Active Omeprazole 40 MG Take 1 capsule by mo ut once daily at bedtime; Duration: 90 Active Rosuvastatin Calcium 20 MG TAKE 1 TABLET BY MOUTH EVERY DAY AT BEDTIME; Duration: 90 days Active FreeStyle Yanna 3 Bonsall - as directed 09/03/2024 Active FreeStyle Yanna 3 Sensor - as directed 09/03/2024 Active BD Pen Needle Radha 2nd Gen 32G X 4 MM USE 1 NEEDLE TWICE DAILY; Duration: 90 Active Verapamil HCl ER 300 MG 1 cap(s) orally qhs Not-Taking Amitriptyline HCl 25 MG 1 tab(s) orally once a day (at bedtime); Duration: 30 day(s) Active Nystatin 254218 UNIT/GM 1 ye applied to pically 2 times a day 12/21/2021 Active Albuterol Sulfate HFA 108 (90 Base) MCG/ACT 1 puff as needed Inhalation every 4 hrs 11/21/2023 Not-Takin g Aspirin 81 81 MG 1 tablet Orally Once a day; Duration: 30 day(s) Active Vitamin D3 125 MCG (5000 UT) 2 cap(s) orally once a day Active Cymbalta 60 MG 2 cap(s) orally once a day; Duration: 30 09/11/2016 Active Gilenya 0.5 MG 1 cap(s) orally once a day; Duration: 30 day(s) Active B-12 1000 MCG 1 tab(s) orally once a day; Duration: 30 day(s) Active Problems Problem Type SNOMED Code ICD Code Onset Dates Problem Status W/U Status Risk Notes Problem Hypoglycemia (197474864) Hypoglycemia (E16.2) Active confirmed Vital Signs Weight 121.2 lbs 11/12/2024 Blood pressure systolic 112 mm Hg 11/13/19 25 Blood pressure diastolic 70 mm Hg 025 Heart Rate 81 /min 11/12/2024 Height 65 in 11/12/2024 BMI 20.17 kg/m2 11/12/2024 Encounters Encounter Location Date Provider Diagnosis [facility] [address] [facility] [address] [place], [place] [id number] 11/12/2024 Nory Lujan 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 The pain is likely due to scar tissue from previous hernia repair. If pain continues she will go back and see the surgeon. 11/12/2024 Hypoglycemia (ICD-10 - E16.2) She has had some low glucose levels and her A1C is much better. Will stop the insulin and see how she does without it. Plan Of Treatment Medication Medication Name Sig Start Date Stop Date Notes Tresiba 100 UNIT/ML 20 units Subcutaneou s once daily 06/25/2024 15 units a day Treatment Notes Assessment Notes Periumbilical abdominal pain No hernia i s palpable. The pain is likely due to scar tissue from previous hernia repair. If pain continues she will go back and see the surgeon. Hypoglycemia She has had some low glucose levels and her A1C is much better. Will stop the insulin and see how she does without it. Referrals Referral Date Details 11/12/2024 11/12/2024, . Dermat ology Next Appt Details Follow Up: with dermatology, Reason: Progress Notes * Nicole MCKENZIEB: 8 (59 yo F)Acc No.[id number]:11/12/2024 Progress Notes Patient: Alison PEREZ Provider: RJ Lozano :1965 A ge:59 Y S ex:Female Date:11/12/2024 Address:[address] [place], [place] [id number] Pcp:Paolo See Subjective: * Chief Complaints: * 1 . Skin Lesion in Head. * HPI: D ermatology: The patient is here today with c/o a skin lesion on the scalp on the left side. Pt states the lesion has gotten bigger and is painful. Pt states the lesion has a scab on it but denies any drainage . 59 year old female presents with c/o skin lesion. G astroenterology: The pt states she has had some pain around her naval for about a month. Pt states she has a history of hernia repair x 2. * ROS: D ERMATOLOGY: no R karthikeyan. n o H sheela. G ASTROENTEROLOGY: no N ausea. n o V omiting. n o D iarrhea.? U ROLOGY: no D ifficulty urinating. n [...] patient MS flair up , Chest Pain- [facility] 09/2009, Vomitting- [facility] ER 08/30/2014, MS Exacerbation- 01/24/2016. * Family History: F ather: alive, diagnosed with Heart Disease, Diabetes, Hypertension. M other: alive, diagnosed with Heart Disease. P aternal Grand Father: , heart disease. P aternal Grand Mother: , cancer, diagnosed with Cancer, Diabetes. M aternal Grand Father: , cancer, prostate. M aternal Grand Mother: , heart disease. 1 brother(s) - healthy. 1 son(s) - healthy. . * Social History: C URRENT TOBACCO USE S moking Status: Patient does NOT smoke. C affeine: yes, frequency:occasionally. Exercise: yes. Marital Status: . Past smoking status: no, Smoking status: Does not smoke. Alcohol: No. * Medications: T aking Aspirin 81 81 MG Tablet Delayed Release [...] cap(s) orally once a day , Taking Amitriptyline HCl 25 MG Tablet 1 tab(s) orally once a day (at bedtime) , Taking Nystatin 725559 UNIT/GM Cream 1 ye applied topically 2 times a day , Taking BD Pen Needle Radha 2nd Gen 32G X 4 MM Miscellaneous USE 1 NEEDLE TWICE DAILY , Taking Levothyroxine Sodium 75 MCG Tablet [...] BY MOUTH EVERY DAY AT BEDTIME , Taking FreeStyle Yanna 3 Bonsall - Device as directed , Taking FreeStyle Yanna 3 Sensor - Miscellaneous as directed , Taking Accu-Chek Guide Test - Strip USE 1 STRIP THREE TIMES DAILY , Taking metFORMIN HCl ER 500 MG Tablet Extended Release 24 Hour Take 2 tablets by mouth twice daily , Taking Ozempic (2 MG/DOSE) 8 MG/3ML Solution Pen-injector INJECT 2 MG SUBCUTANEOUSLY ONCE A WEEK , Not-Taking Vitamin B-6 100 MG Tablet 1 tablet Orally Once a day , Not-Taking Verapamil HCl ER 300 MG Capsule Extended Release 24 Hour 1 cap(s) orally qhs , Not-Taking Albuterol Sulfate HFA 108 (90 Base) MCG/ACT Aerosol Solution 1 puff as needed Inhalation every 4 hrs , Medication List reviewed and reconciled with the patient * Allergies: M orphine, Iodinated Contrast Media. Objective: * Vitals: W t:121.2, Temp:98.1, BP:112/70, HR:81, Nurse:ROMA, Ht: 65, BMI:20.17. * Examination: D ermatology: Scalp: large atypical skin lesion on the top of the scalp, no drainage, tender to palpation. G eneral Examination: General Appearance: N AD. C hest: n ormal shape and expansion. H eart: R SR. L ungs: c lear to auscultation. A bdomen: bowel sounds present, soft and nontender, no organomegaly or masses, no guarding or rigidity. ? Assessment: * Assessment: 1. 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 P eriumbilical abdominal pain - R10.33 3 . H ypoglycemia - E16.2 Plan: * Treatment: 2. P eriumbilical abdominal pain Notes: No hernia is palpable. The pain is likely due to scar tissue from previous hernia repair. If pain continues she will go back and see the surgeon. 3. H ypoglycemia Stop Tresiba Solution, 100 UNIT/ML, 20 units, Subcutaneous, once daily, Notes to Pharmacist: 15 units a day. Notes: She has had some low glucose levels and her A1C is much better. Will stop the insulin and see how she does without it. * Procedure Codes: G 2211 Complex e/m visit add on, G8752 MOST RECENT SYSTOLIC BP < 140MM HG, G8754 MOST RECENT DIASTOLIC BP < 90MM HG, 3044F HG A1C LEVEL LT 7.0% * Follow Up: w [facility] dermatology * Images: Billing Information: * Visit Code: 22426 Office Visit, Est Pt., Level 3. * Procedure Codes: G2211 Complex e/m visit add on. G8752 MOST RECENT SYSTOLIC BP < 140MM HG. G8754 MOST RECENT DIASTOLIC BP < 90MM HG. 3044F HG A1C LEVEL LT 7.0%. * Electronic signature of RJ Underwood on 05/11/2025 at 08:47 AM EDT Sign off status: Pending * Provider: RJ Lozano Date: 0 11/12/2024 Generated for [place] kaye/Miguel/Jenniferitting on: 0 05/11/2025 08:47 AM EDT History and Physical Notes * HPI (History of Present Illness) Category Sub-Category Detail Notes Category Not es Dermatology skin lesion Examination Category Sub-Category Detail Notes Category Not es General Examination Heart: RSR Lungs: clear to auscultatio n Abdomen: bowel sounds present , soft and nontender, no organomegaly or masses, no guarding or rigidity General Appearance: NAD Chest: normal shape and exp ansion Dermatology Scalp: large atypical s kin lesion on the top of the scalp, no drainage, tender to palpation Consultation Request Notes Referral Date Referring Provider Referred Provider Not es 11/12/2024 Nory Lujan Dermatology, .
--- OUTSIDE RECORDS SUMMARY | 2025-03-24 05:45 | XMS_ITS ---
Author Organization [facility] Address [address] [place] [id number] Care Team Providers Care Suction Operator Name Role Phone Paolo See Primary Care Provider [phone] Allergies Allergen (clinical drug ingredient) Drug/Non Drug Allergy documented on EMR Reaction Allergy Type Onset Date Status Iodinated contrast media (substance) Iodinated Contrast Media Unknown Drug Allergy Active morphine Morphine Unknown Drug Allergy Active Results Component Value Reference Range Notes Glucose (In-House) Reviewed date:03/25/2025 04:44:54 PM Interpretation:136 Performing Lab: Notes/Report: 136 blood glucose 136 74 - 106 mg/dL Glycohemoglobin A1c (in hous e) Reviewed date:03/25/2025 04:44:54 PM Interpretation:5.9 Normal Performing Lab: Notes/Report: 5.9 Normal glycohemoglobin 5.9% 5 - 6.5 % P-Comprehensive Metabolic Pa tammy (CMP) Reviewed date:03/25/2025 04:44:54 PM Interpretation:gluc 113, a1c 5.9-normal Performing Lab: Notes/Report: Test performed by [facility] [address] [place] [address] , [address], [place] [address] Jamey Mejia MD, Die Casting Supervisor CLIA: [id number] Sodium 135 135-145 mmol/L Potassium 4.5 3.5-5.3 mmol/L Chloride 100 97-108 mmol/L CO2 21 20-32 mmol/L Glucose 113 65-99 mg/dL BUN 10 6-20 mg/dL Creatinine 0.63 0.50-1.00 mg/dL Calcium 9.7 8.6-10.4 mg/dL eGFR by Creatinine 103 >59 mL/min/1.73m2 Protein 6.7 6.0-8.3 g/dL Albumin 4.5 3.5-5.3 g/dL Alkaline Phosphatase 59 35-121 IU/L ALT (SGPT) 29 <5-47 IU/L AST (SGOT) 23 <5-40 IU/L Bilirubin, Total 0.3 <0.2-1.2 mg/dL A/G Ratio 2.0 1.1-2.5 P-Lipid Panel Reviewed date:03/25/2025 04:44:54 PM Interpretation:Normal Performing Lab: Notes/Report: Test performed by [facility], [address] , [address], [place] [address] Jamey Mejia MD, Die Casting Supervisor CLIA: [id number] Cholesterol 155 <200 mg/dL Triglycerides 135 <150 mg/dL HDL Cholesterol 80 >39 mg/dL Cholesterol / HDL Ratio 1.94 0.00-4.44 Ratio Non-HDL Cholesterol 75 <130 mg/dL LDL Cholesterol (Calculation) 48 <130 mg/dL LDL Cholesterol Levels* Less than 100 mg/dL Optimal 100 to 129 mg/dL Near Optimal/ Above Optimal 130 to 159 mg/dL Borderline High 160 to 189 mg/dL High 190 mg/dL and above Very High * Categories as recommended by the 2004 ATPIII guidelines LDL/HDL Ratio 0.6 <3.3 Ratio LDL Cholesterol Patient History Test Date: 05/21/2024 LDL Results: 37 Units: mg/dL % Change: -26% Test Date: 09/03/2024 LDL Results: 13 Units: mg/dL % Change: -64% Test Date: 03/24/2025 LDL Results: 48 Units: mg/dL % Change: +269% P-Vitamin D 25-Hydroxy Reviewed date:03/25/2025 04:44:54 PM Interpretation:Normal Performing Lab: Notes/Report: Test performed by [facility] [address] [place] [address] , [place] [address] Jamey Mejia MD, Die Casting Supervisor CLIA: [id number] Vitamin D 25-Hydroxy 71.0 30.0-100.0 ng/mL Interpretation of Vitamin D 25 OH: < 20 ng/mL - Deficiency 20 - 29 ng/mL - Insufficiency 30 - 100 ng/mL - Sufficiency > 100 ng/mL - Super-therapeutic- toxicity may occur above this level. Clinical correlation required. REASON FOR VISIT check up Medications Medication SIG (Take, Route, Frequency, Duration) Notes Start Date End Date Status Ozempic (2 MG/DOSE) 8 MG/3ML 2 mg Subcutaneous once weekly; Duration: 28 days Active Levothyroxine Sodium 75 MCG Take 1 table t by mouth once daily; Duration: 90 Active Rosuvastatin Calcium 20 MG 1 tablet Oral ly Once a day at bedtime; Duration: 90 days Active Omeprazole 40 MG Take 1 capsule by [facility] at bedtime; Duration: 90 Active Accu-Chek Guide Test - USE 1 STRIP THREE TIMES DAILY; Duration: 30 Active FreeStyle Yanna 3 Sensor - as directed 09/03/2024 Active FreeStyle Yanna 3 [place] - as directed 09/03/2024 Active Cymbalta 60 MG 2 cap(s) orally once a day; Duration: 30 09/11/2016 Active BD Pen Needle Radha 2nd Gen 32G X 4 MM USE 1 NEEDLE TWICE DAILY; Duration: 90 Active Nystatin 336204 UNIT/GM 1 ye applied to pically 2 times a day 12/21/2021 Active Amitriptyline HCl 25 MG 1 tab(s) orally once a day (at bedtime); Duration: 30 day(s) Active Gilenya 0.5 MG 1 cap(s) orally once a day; Duration: 30 day(s) Active metFORMIN HCl ER 500 MG Take 2 tablets O rally Once a day Active B-12 1000 MCG 1 tab(s) orally once a day; Duration: 30 day(s) Active Vitamin D3 125 MCG (5000 UT) 2 cap(s) orally once a day Active Aspirin 81 81 MG 1 tablet Orally Once a day; Duration: 30 day(s) Active Problems Problem Type SNOMED Code ICD Code Onset Dates Problem Status W/U Status Risk Notes Problem Peripheral circulatory disorder associated with diabetes mellitus (381917282) Type 2 diabetes mellitus with other circulatory complications (E11.59) Active confirmed Vital Signs Weight 113.8 lbs 03/24/2025 Blood pressure systolic 100 mm Hg 03/24/20 25 Blood pressure diastolic 62 mm Hg 025 Heart Rate 82 /min 03/24/2025 Height 65 in 03/24/2025 BMI 18.94 kg/m2 03/24/2025 Encounters Encounter Location Date Provider Diagnosis Karmen [address] [facility] [address] [place] [id number] 03/24/2025 Paolo See Type 2 diabetes waldemar itus without complications E11.9 ; Mixed hyperlipidemia E78.2 ; Vitamin D deficiency E55.9 ; Breast cancer screening by mammogram Z12.31 ; Colon cancer screening Z12.11 ; Osteoporosis screening Z13.820 ; MS (multiple sclerosis) G35 ; Hypothyroidism (acquired) E03.9 ; Depression, unspecified depression type F32.9 ; Type 2 diabetes mellitus with other circulatory complications E11.59 and Body mass index (BMI) less than 19 Z68.1 Assessments Encounter Date Diagnosis (ICD Code) Assessment Notes Treatment Notes Treatment Clinical Notes Section Notes 03/24/2025 Type 2 diabetes mellitus without complications (ICD-10 - E11.9) 03/24/2025 Mixed hyperlipidemia (ICD-10 - E78.2) 03/24/2025 Vitamin D deficiency (ICD-10 - E55.9) 03/24/2025 Breast cancer screening by mammogram (ICD-10 - Z12.31) 03/24/2025 Colon cancer screening (ICD-10 - Z12.11) 03/24/2025 Osteoporosis screening (ICD-10 - Z13.820) 03/24/2025 MS (multiple sclerosis) (ICD-10 - G35) 03/24/2025 Hypothyroidism (acquired) (ICD-10 - E03.9) 03/24/2025 Depression, unspecified depression type (ICD-10 - F32.9) 03/24/2025 Type 2 diabetes mellitus with other circulatory complications (ICD-10 - E11.59) 03/24/2025 Body mass index (BMI) less than 19 (ICD-10 - Z68.1) Plan Of Treatment Medication Medication Name Sig Start Date Stop Date Notes metFORMIN HCl ER 500 MG Take 2 tablets Orally Once a day Pending Test Test Name Order Date colonoscopy 03/24/2025 DEXA Hip and Spine 03/24/2025 Mammogram 03/24/2025 Next Appt Details Follow Up: 6 Months, Reason: Progress Notes * JONAH, NicoleB: 8 (59 yo F)Acc No.[id number]:03/24/2025 Progress Notes Patient: S Alison MILLER Provider: Anthony See M.D. :1965 A ge:59 Y S ex:Female Date:03/24/2025 Address:[address] [place] [address], [phone] Subjective: * Chief Complaints: * 1 . Check up. * HPI: C ardiology: 59 year old female presents with c/o Blood Pressure Elevated?Pt here for check up on hypertension. Pt states she is doing well and does not have any concerns?. c/o Hyperlipidemia P t is not fasting today. E ndocrinology: c/o Recent Blood Sugars P t here to f/u on DM 2. Pt states she does not regularly check her blood sugar at home. c/o Hypothyroidism P t here to f/u. * ROS: D ERMATOLOGY: no R karthikeyan. n o H sheela. G ASTROENTEROLOGY: no N ausea. n o V omiting. U ROLOGY: no D ifficulty urinating. n [...] patient MS flair up , Chest Pain- [facility] 09/2009, Vomitting- [facility] ER 08/30/2014, MS Exacerbation- 01/24/2016. * Family History: F ather: alive, diagnosed with Hypertension, Diabetes, Heart Disease. M other: alive, diagnosed with Heart Disease. P aternal Grand Father: , heart disease. P aternal Grand Mother: , cancer, diagnosed with Cancer, Diabetes. M aternal Grand Father: , cancer, prostate. M aternal Grand Mother: , heart disease. 1 brother(s) - healthy. 1 son(s) - healthy. . * Social History: C URRENT TOBACCO USE: No . C affeine: yes, frequency:occasionally. Exercise: yes. Marital [...] a day (at bedtime) , Taking Nystatin 231062 UNIT/GM Cream 1 ye applied topically 2 times a day , Taking BD Pen Needle Radha 2nd Gen 32G X 4 MM Miscellaneous USE 1 NEEDLE TWICE DAILY , Taking FreeStyle Yanna 3 [place] - Device as directed , Taking FreeStyle Yanna 3 Sensor - Miscellaneous as directed , Taking Accu-Chek Guide Test - Strip USE 1 STRIP THREE TIMES DAILY , Taking metFORMIN HCl ER 500 MG Tablet Extended Release 24 Hour Take 2 tablets by mouth twice daily , Taking Omeprazole 40 MG Capsule Delayed Release Take 1 capsule by mouth at bedtime , Taking Rosuvastatin Calcium 20 MG Tablet 1 tablet Orally Once a day at bedtime , Taking Levothyroxine Sodium 75 MCG Tablet Take 1 tablet by mouth once daily , Taking Ozempic (2 MG/DOSE) 8 MG/3ML Solution Pen-injector 2 mg Subcutaneous once weekly , Discontinued Vitamin B-6 100 MG Tablet 1 tablet Orally Once a day , Discontinued Verapamil HCl ER 300 MG Capsule Extended Release 24 Hour 1 cap(s) orally qhs , Discontinued Albuterol Sulfate HFA 108 (90 Base) MCG/ACT Aerosol Solution 1 puff as needed Inhalation every 4 hrs , Medication List reviewed and reconciled with the patient * Allergies: M orphine, Iodinated Contrast Media. Objective: * Vitals: W t: 113.8, Temp: 97.8, BP: 100/62, HR: 82, Nurse: vicki, Ht: 65, BMI:18.94. * Examination: G eneral Examination: General Appearance: N AD. H eart: R SR. L ungs:?clear to auscultation. P eripheral pulses: n ormal (2+) bilaterally. E xtremities:?no leg edema. Assessment: * Assessment: 1. T ype 2 diabetes mellitus without complications - E11.9 (Primary) 2 . M ixed hyperlipidemia - E78.2 3 . V itamin D deficiency - E55.9 4 . B reast cancer screening by mammogram - Z12.31 5 . C olon cancer screening - Z12.11 6 . O steoporosis screening - Z13.820 7 . M S (multiple sclerosis) - G35 8 . H ypothyroidism (acquired) - E03.9 9 . D epression, unspecified depression type - F32.9 1 0. T ype 2 diabetes mellitus with other circulatory complications - E11.59 1 1. B emelia mass index (BMI) less than 19 - Z68.1 Plan: * Treatment: Value Reference Range A /G Ratio 2.0 1.1-2.5 - * A lbumin 4.5 3.5-5.3 - g/dL * A lkaline Phosphatase 59 35-121 - IU/L * A LT (SGPT) 29 <5-47 - IU/L * A ST (SGOT) 23 <5-40 - IU/L * B ilirubin, Total 0.3 <0.2-1.2 - mg/dL * B UN 10 6-20 - mg/dL * C alcium 9.7 8.6-10.4 - mg/dL * C hloride 100 97-108 - mmol/L * C O2 21 20-32 - mmol/L * C reatinine 0.63 0.50-1.00 - mg/dL * G lucose 113 H 65-99 - mg/dL * P otassium 4.5 3.5-5.3 - mmol/L * S odium 135 135-145 - mmol/L * P rotein 6.7 6.0-8.3 - g/dL * e GFR by Creatinine 103 >59 - mL/min/1.73m2 * Nicci Orozco 03/25/2025 04:44:4 1 PM EDT > Pt informed ?LAB: Glucose (In-House) (Collection Date & Time - 03/24/2025)?136* Value Reference Range b lood glucose 136 74 - 106 mg/dL * Nicci Orozco 03/24/2025 10:45:3 2 AM EDT > Nicci Orozco 03/25/2025 04:44:41 PM EDT > Pt informed ?LAB: Glycohemoglobin A1c (in house) (Collection Date & Time - 03/24/2025)? 5.9 Normal* Value Reference Range g lycohemoglobin 5.9% 5 - 6.5 % * Nicci Orozco 03/24/2025 10:45:4 7 AM EDT > Nicci Orozco 03/25/2025 04:44:41 PM EDT > Pt informed 2.?Mixed hyperlipidemia?LAB: P-Comprehensive Metabolic Panel (CMP) (Collection Date & Time - 03/24/2025 09:19 AM)?gluc 113, a1c 5.9-normal* Value Reference Range A /G Ratio 2.0 1.1-2.5 - * A lbumin 4.5 3.5-5.3 - g/dL * A lkaline Phosphatase 59 35-121 - IU/L * A LT (SGPT) 29 <5-47 - IU/L * A ST (SGOT) 23 <5-40 - IU/L * B ilirubin, Total 0.3 <0.2-1.2 - mg/dL * B UN 10 6-20 - mg/dL * C alcium 9.7 8.6-10.4 - mg/dL * C hloride 100 97-108 - mmol/L * C O2 21 20-32 - mmol/L * C reatinine 0.63 0.50-1.00 - mg/dL * G lucose 113 H 65-99 - mg/dL * P otassium 4.5 3.5-5.3 - mmol/L * S odium 135 135-145 - mmol/L * P rotein 6.7 6.0-8.3 - g/dL * e GFR by Creatinine 103 >59 - mL/min/1.73m2 * Nicci Orozco 03/25/2025 04:44:4 1 PM EDT > Pt informed ?LAB: P-Lipid Panel (Collection Date & Time - 03/24/2025 09:19 AM)?Normal* Value Reference Range C holesterol / HDL Ratio 1.94 0.00-4.44 - Ratio * C holesterol 155 <200 - mg/dL * H DL Cholesterol 80 >39 - mg/dL * L DL Cholesterol (Calculation) 48 <130 - mg/d L * L DL/HDL Ratio 0.6 <3.3 - Ratio * N on-HDL Cholesterol 75 <130 - mg/dL * T riglycerides 135 <150 - mg/dL * King Nicci 03/25/2025 04:44:4 1 PM EDT > Pt informed 3.?Vitamin D deficiency?LAB: P-Vitamin D 25-Hydroxy (Collection Date & Time - 03/24/2025 09:19 AM)? Normal* Value Reference Range V itamin D 25-Hydroxy 71.0 30.0-100.0 - ng/mL * King Nicci 03/25/2025 04:44:4 1 PM EDT > Pt informed 4.?Breast cancer screening by mammogram?Imaging: Mammogram* Milady Davalos 03/25/2025 09:24 :07 AM EDT > faxed to [facility] Scheduling 5.?Colon cancer screening?Imaging: colonoscopy* Milady Garcia 03/25 09:29:46 AM EDT > faxed to Dr. Soares office 6.?Osteoporosis screening?Imaging: DEXA Hip and Spine* Milady Davalos 03/25/2025 09:24 :20 AM EDT > faxed to [facility] Scheduling * Procedure Codes: G 2211 Complex e/[place], [address] GLUCOSE TEST, 32165 GLYCATED HEMOGLOBIN TEST, Modifiers: QW , 3044F HG A1C LEVEL LT 7.0%, 1036F TOBACCO NON-USER, G8783 BP SCR PRFRM RCMDD DEFIND SCR INTVL, G8752 MOST RECENT SYSTOLIC BP < 140MM HG, G8754 MOST RECENT DIASTOLIC BP < 90MM HG * Follow Up: 6 Months * Images: Billing Information: * Visit Code: 60499 Office Visit, Est Pt., Level 4. * Procedure Codes: G2211 Complex e/[place]. [address] GLUCOSE TEST. 73259 GLYCATED HEMOGLOBIN TEST. Modifiers: QW 3044F HG A1C LEVEL LT 7.0%. 1036F TOBACCO NON-USER. G8783 BP SCR PRFRM RCMDD DEFIND SCR INTVL. G8752 MOST RECENT SYSTOLIC BP < 140MM HG. G8754 MOST RECENT DIASTOLIC BP < 90MM HG. * Electronic signature of Ashley See MD on 05/11/2025 at 08:45 AM EDT Sign off status: Pending * Provider: Anthony See M.D. Date: 0 03/24/2025 Generated for [place] kaye/Miguel/Bang on: 0 05/11/2025 08:45 AM EDT History and Physical Notes * HPI (History of Present Illness) Category Sub-Category Detail Notes Category Not es Endocrinology Recent Blood Sugars Pt here to f /u on DM 2. Pt states she does not regularly check her blood sugar at home Hypothyroidism Pt here to f/u Cardiology Blood Pressure Elevated Pt here for check up on hypertension. Pt states she is doing well and does not have any concerns Hyperlipidemia Pt is not fasting to day Examination Category Sub-Category Detail Notes Category Not es General Examination Heart: RSR Lungs: clear to auscultatio n Extremities: no leg edema General Appearance: NAD Peripheral pulses: normal (2+) bilatera lly
--- NOTE | 2025-05-11 08:07 | MM_ITS ---
PROCEDURE INFORMATION: Exam: MG Bilateral Screening 3D Mammography Exam date and time: 05/11/2025 8:32 AM Age: 59 years old Clinical indication: Screening examination. Family history of breast carcinoma. TECHNIQUE: Imaging protocol: Bilateral Screening tomosynthesis and 2D mammography including computer-aided detection (CAD) when performed. COMPARISON: 1. MG MM DIG SCREENING MAMM BI W/CAD 01/29/2023 8:07 AM 2. MG MM DIG SCREENING MAMM BI W/CAD 11/17/2020 7:56 AM 3. MG SCBI MM Dig screening mamm BI w/CAD 01/01/2018 9:12 AM 4. MG DMDXUAVL DIG MAMM-DX UNI ADD VIEWS-LT 08/18/2016 1:41 PM FINDINGS: MAMMOGRAPHY: Breast composition: The breasts are heterogeneously dense, which may obscure small masses. Mass: No suspicious masses. Architectural distortion: No suspicious distortion. Calcifications: No suspicious calcifications. Asymmetric density: Questionable spiculated 1 cm asymmetry in the central anterior right breast, slightly medial to the nipple line, best seen on cc frame 12, MLO frame 33. Skin thickening: None. Axillary adenopathy: None. IMPRESSION: 1. Recommend right breast spot compression CC/MLO view, full field true lateral view and ultrasound for further evaluation of a questionable spiculated 1 cm asymmetry. 2. No definite mammographic evidence of malignancy in the left breast. 3. Given the reported risk factors for this patient, a breast cancer risk assessment may prove useful for further evaluation. ASSESSMENT: BI-RADS Category 0: Incomplete- Need Additional Imaging Evaluation.
--- OUTSIDE RECORDS SUMMARY | 2025-05-11 08:46 | XMS_ITS ---
Author Organization Unknown Results OrderDate OrderTestName ResultName ResultDate Value Units Range AbnormalFlag ResultStatus ObservationNotes TestCode ResultCode DateRecorded AccessionNumber DiagnosticSectionCode DiagnosticSectionName Sequence Interpretation Cust om 04/07/2024 00:00:00 Urinalysis - Inhouse Gluc [id number]:00:00 neg Reviewed Nicci Wray 04/07/2024 4:07:12 PM > , Provider reviewed results while patient in office. Urinalysis - Inhouse 04/07/2024 00:00:00004/07/2024 00:00:00Urinalysis - InhouseBili 2783-74-32O50:00:001+ReviewedNicci Orozco 04/07/2024 4:07:12 PM > , Provider reviewed results while patient in office. Coding Urinalysis - Inhouse 04/07/2024 00:00: 00:00:00Urinalysis - InhouseKetone 9049-66-59D34:00:001+Nicci Inman 04/07/2024 4:07:12 PM > , Provider reviewed results while patient in office. Coding Urinalysis - Inhouse 04/07/2024 00:00: 00:00:00Urinalysis - InhouseSp. Gr. 3993-90-77R21:00:00>=1.030RevieweNicci Goss 04/07/2024 4:07:12 PM > , Provider reviewed results while patient in office. Coding Urinalysis - Inhouse 04/07/2024 00:00:00004/07/2024 00:00:00Urinalysis - InhouseBlood 3100-31-40X17:00:00negReNicci Hector 04/07/2024 4:07:12 PM > , Provider reviewed results while patient in office. Coding Urinalysis - Inhouse 04/07/2024 00:00: 00:00:00Urinalysis - IhtblpgqU3865-01-12W17:00:00 5.5ReviewedKtesfayeCliffNicci 04/07/2024 4:07:12 PM > , Provider reviewed results while patient in office. Coding Urinalysis - Inhouse 04/07/2024 00:00: 00:00:00Urinalysis - InhouseProtein 6657-52-96R78:00:001+ReviewedKing,Nicci 04/07/2024 4:07:12 PM > , Provider reviewed results while patient in office. Coding Urinalysis - Inhouse 04/07/2024 00:00: 00:00:00Urinalysis - InhouseUrobili 0371-63-33C42:00:0016RevieweAna PaulaEl [facility] 04/07/2024 4:07:12 PM > , Provider reviewed results while patient in office. Coding Urinalysis - Inhouse 04/07/2024 00:00: 00:00:00Urinalysis - InhouseNitrite 1348-37-34P29:00:00negRevieweAna PaulaEl [facility] 04/07/2024 4:07:12 PM > , Provider reviewed results while patient in office. Coding Urinalysis - Inhouse 04/07/2024 00:00: 00:00:00Urinalysis - InhouseLeuk 1228-21-13G23:00:001+ReviewedKingEl [facility] 04/07/2024 4:07:12 PM > , Provider reviewed results while patient in office. Coding Urinalysis - Inhouse 04/07/2024 00:00: 00:00:00Urinalysis - InhouseColor/Clarity 3545-66-62Q67:00:00yellow/cloudyRevieweAna PaulaEl [facility] 04/07/2024 4:07:12 PM > , Provider reviewed results while patient in office. Coding Urinalysis - Inhouse 04/07/2024 00:00: 00:00:00TEN-UTI kiomg2567-72-28A12:00:00Negative ReviewedNicci Orozco 04/10/2024 11:41:21 AM > Pt informed Coding TEN-UTI panel 04/10/2024 00:00:001 00:00:00P-Vitamin D 25-HydroxyVitamin D 25-Hydroxy 2837-21-86B36:00:0079.1ng/mL30.0-100.0 - ng/mLRChristaNory S 05/22/2024 8:15:17 AM > see TE Coding P-Vitamin D 25-Hydroxy 05/21/2024 00:00:001 00:00:05E-HVUBFC4339-06GTETTJ5578-69-43P65:00:001.86mU/L0.43- 5.25 - mU/LRNory Goodwin 05/22/2024 8:15:17 AM > see TE Coding P-TSH 05/21/2024 00:00:001 00:00:00P-Lipid PanelTriglycerides 4101-83-48F19:00:11373dm/dL<150 - mg/dLMatiNory S 05/22/2024 8:15:17 AM > see TE Coding P-Lipid Panel 05/21/2024 00:00:001 00:00:00P-Lipid PanelNon-HDL Cholesterol 9390-40-18U87:00:0079mg/dL<130 - mg/dLNory Manzano 05/22/2024 8:15:17 AM > see TE Coding P-Lipid Panel 05/21/2024 00:00:001 00:00:00P-Lipid PanelLDL/HDL Ratio 8421-42-09Q20:00:000.6Ratio<3.3 - RatioReNory Augustin 05/22/2024 8:15:17 AM > see TE Coding P-Lipid Panel 05/21/2024 00:00:001 00:00:00P-Lipid PanelLDL Cholesterol (Calculation) 0789-63-55B06:00:0037mg/dL<130 - mg/dLReDemetriaNory Jose 05/22/2024 8:15:17 AM > see TE Coding P-Lipid Panel 05/21/2024 00:00:001 00:00:00P-Lipid PanelHDL Cholesterol 1277-37-42J54:00:0058mg/dL>39 - mg/dLReDemetriaNory S 05/22/2024 8:15:17 AM > see TE Coding P-Lipid Panel 05/21/2024 00:00:001 00:00:00P-Lipid PanelCholesterol 1397-83-28Z60:00:71227hi/dL<200 - mg/dLReDemetriaNory Jose 05/22/2024 8:15:17 AM > see TE Coding P-Lipid Panel 05/21/2024 00:00: 00:00:00P-Lipid PanelCholesterol / HDL Ratio 0201-29-80Y96:00:002.01Tfvap1.00-4.44 - RatioReDemetriaNory Jose 05/22/2024 8:15:17 AM > see TE Coding P-Lipid Panel 05/21/2024 00:00:001 00:00:00P-T4 Free (thyroxine)Thyroxine Free (free T4)4784-23-63P03:00:001.20ng/dL0.86-1.76 - ng/dLReDemetriaNory Jose 05/22/2024 8:15:17 AM > see TE Coding P-T4 Free (thyroxine) 05/21/2024 00:00:001 00:00:00P-Comprehensive Metabolic Panel (CMP)eGFR by Nqabybkkjn7369-20-79H29:00:71991rB/min/1.73m2>59 - mL/min/1.38l3BtcqmdlcHina LujanNory S 05/22/2024 8:15:17 AM > see TE Coding P-Comprehensive Metabolic Pa tammy (CMP) 05/21/2024 00:00:001 00:00:00P-Comprehensive Metabolic Panel (CMP) Rzzvusf2734-58-57H31:00:006.6g/dL6.0-8.3 - g/dLJose JuanNory S 05/22/2024 8:15:17 AM > see TE Coding P-Comprehensive Metabolic Pa tammy (CMP) 05/21/2024 00:00:001 00:00:00P-Comprehensive Metabolic Panel (CMP) Kryouv3963-16-39O32:00:05690tayc/X770-347 - mmol/SaurabhNory S 05/22/2024 8:15:17 AM > see TE Coding P-Comprehensive Metabolic Pa tammy (CMP) 05/21/2024 00:00:001 00:00:00P-Comprehensive Metabolic Panel (CMP) Vasbkkdrz9318-95-65T52:00:004.8mmol/L3.5-5.3 - mmol/SaurabhNory S 05/22/2024 8:15:17 AM > see TE Coding P-Comprehensive Metabolic Pa tammy (CMP) 05/21/2024 00:00: 00:00:00P-Comprehensive Metabolic Panel (CMP) Utzcocq8441-83-75C14:00:0070mg/dL65-99 - mg/dLNory Manzano 05/22/2024 8:15:17 AM > see TE Coding P-Comprehensive Metabolic Pa tammy (CMP) 05/21/2024 00:00:001 00:00:00P-Comprehensive Metabolic Panel (CMP) Drdhnvsqxc8292-29-24O21:00:000.69mg/dL0.50-1.00 - mg/dLNory Manzano 05/22/2024 8:15:17 AM > see TE Coding P-Comprehensive Metabolic Pa tammy (CMP) 05/21/2024 00:00:001 00:00:00P-Comprehensive Metabolic Panel (CMP)CO2 6327-59-82O92:00:0026mmol/L22-32 - mmol/Nory Wiley 05/22/2024 8:15:17 AM > see TE Coding P-Comprehensive Metabolic Pa tammy (CMP) 05/21/2024 00:00:001 00:00:00P-Comprehensive Metabolic Panel (CMP) Sfpnvwxz4022-27-45R02:00:37949thxl/L97-108 - mmol/Nory Wiley 05/22/2024 8:15:17 AM > see TE Coding P-Comprehensive Metabolic Pa tammy (CMP) 05/21/2024 00:00:001 00:00:00P-Comprehensive Metabolic Panel (CMP) Bqiutej3929-93-88N97:00:009.5mg/dL8.6-10.4 - mg/dLNory Manzano 05/22/2024 8:15:17 AM > see TE Coding P-Comprehensive Metabolic Pa tammy (CMP) 05/21/2024 00:00:001 00:00:00P-Comprehensive Metabolic Panel (CMP)BUN 3242-14-23F78:00:0011mg/dL6-20 - mg/dLNory Manzano 05/22/2024 8:15:17 AM > see TE Coding P-Comprehensive Metabolic Pa tammy (CMP) 05/21/2024 00:00: 00:00:00P-Comprehensive Metabolic Panel (CMP) Bilirubin, Bdgwv9202-86-88M92:00:00<0.2mg/dL<0.2-1.2 - mg/dLReNory Flores 05/22/2024 8:15:17 AM > see TE Coding P-Comprehensive Metabolic Pa tammy (CMP) 05/21/2024 00:00:001 00:00:00P-Comprehensive Metabolic Panel (CMP)AST (SGOT)3911-06-55U62:00:0028IU/L<5-40 - IU/Nory Wiley 05/22/2024 8:15:17 AM > see TE Coding P-Comprehensive Metabolic Pa tammy (CMP) 05/21/2024 00:00:001 00:00:00P-Comprehensive Metabolic Panel (CMP)ALT (SGPT)2664-42-87K05:00:0034IU/L<5-47 - IU/LRNory Goodwin 05/22/2024 8:15:17 AM > see TE Coding P-Comprehensive Metabolic Pa tammy (CMP) 05/21/2024 00:00:001 00:00:00P-Comprehensive Metabolic Panel (CMP) Alkaline Lycsjjkedvd4104-77-60U04:00:0073IU/L35-121 - IU/LRNory Goodwin 05/22/2024 8:15:17 AM > see TE Coding P-Comprehensive Metabolic Pa tammy (CMP) 05/21/2024 00:00:001 00:00:00P-Comprehensive Metabolic Panel (CMP) Qsqkogk4268-72-25C98:00:004.5g/dL3.5-5.3 - g/dLRevieweNory Sawant 05/22/2024 8:15:17 AM > see TE Coding P-Comprehensive Metabolic Pa tammy (CMP) 05/21/2024 00:00: 00:00:00P-Comprehensive Metabolic Panel (CMP)A/G Cspvl9216-15-06G73:00:002.11.1-2.5 -ReviewedNory Lujan 05/22/2024 8:15:17 AM > see TE Coding P-Comprehensive Metabolic Pa tammy (CMP) 05/21/2024 00:00:001 00:00:00P-Vitamin P47Pdyuaha B12 4052-14-25V61:00:08184ig/iM553-7510 - pg/mLRNory Goodwin 05/22/2024 8:15:17 AM > see TE Coding P-Vitamin B12 05/21/2024 00:00:001 00:00:00Glycohemoglobin A1c (in house) syccrjikysbitma5603-55-57T91:00:005.7%%5 - 6.5 %Martha Martinez 05/21/2024 11:46:10 AM > Nory Lujan 05/22/2024 8:15:17 AM > see TE Coding Glycohemoglobin A1c (in hous e) 05/21/2024 00:00:001 00:00:00CBC Venipuncture (in house)[place] 3640-80-96Q18:00:94923415 - 400ReMartha Keyes 05/21/2024 11:47:14 AM > , Provider reviewed results while patient in office.Nory Lujan 05/21/2024 12:36:05 PM > Coding CBC Venipuncture (in house) 05/21/2024 00:00:001 00:00:00CBC Venipuncture (in house)[facility] 1064-13-99P76:00:0033.431 - 38ReMartha Keyes 05/21/2024 11:47:14 AM > , Provider reviewed results while patient in office.Nory Lujan 05/21/2024 12:36:05 PM > Coding CBC Venipuncture (in house) 05/21/2024 00:00:001 00:00:00CBC Venipuncture (in house)[facility] 8769-55-25K09:00:0028.225 - 35ReMartha Keyes 05/21/2024 11:47:14 AM > , Provider reviewed results while patient in office.Nory Lujan 05/21/2024 12:36:05 PM > Coding CBC Venipuncture (in house) 05/21/2024 00:00:001 00:00:00CBC Venipuncture ([place] house[place] 1157-70-00Z24:00:0084.475 - 100ReMartha Keyes 05/21/2024 11:47:14 AM > , Provider reviewed results while patient in office.Nory Lujan 05/21/2024 12:36:05 PM > Coding CBC Venipuncture (in house) 05/21/2024 00:00:001 00:00:00CBC Venipuncture (in house)hct 7752-55-26T84:00:0035.435 - 55ReMartha Keyes 05/21/2024 11:47:14 AM > , Provider reviewed results while patient in office.Nory Lujan 05/21/2024 12:36:05 PM > Coding CBC Venipuncture (in house) 05/21/2024 00:00:001 00:00:00CBC Venipuncture (in house)hgb 4687-15-92I27:00:0011.811.5 - 16.5ReMartha Keyes 05/21/2024 11:47:14 AM > , Provider reviewed results while patient in office.Nory Lujan 05/21/2024 12:36:05 PM > Coding CBC Venipuncture (in house) 05/21/2024 00:00:001 00:00:00CBC Venipuncture (in house)rbc 7438-84-82R58:00:004.193.5 - 5.5ReMartha Keyes 05/21/2024 11:47:14 AM > , Provider reviewed results while patient in office.Nory Lujan 05/21/2024 12:36:05 PM > Coding CBC Venipuncture (in house) 05/21/2024 00:00:001 00:00:00CBC Venipuncture (in house)gran 9397-29-54N63:00:0075.0%35 - 80ReMartha Keyes 05/21/2024 11:47:14 AM > , Provider reviewed results while patient in office.Nory Lujan 05/21/2024 12:36:05 PM > Coding CBC Venipuncture (in house) 05/21/2024 00:00:001 00:00:00CBC Venipuncture (in house)mid 4767-63-55N67:00:005.8%2 - 15RevieweMartha Yan L 05/21/2024 11:47:14 AM > , Provider reviewed results while patient in office.TaiNory Garcia 05/21/2024 12:36:05 PM > Coding CBC Venipuncture (in house) 05/21/2024 00:00:001 00:00:00CBC Venipuncture (in house)lymph 8342-54-33U46:00:0019.2%15 - 50RevieweMartha Yan L 05/21/2024 11:47:14 AM > , Provider reviewed results while patient in office.Nory Lujan 05/21/2024 12:36:05 PM > Coding CBC Venipuncture (in house) 05/21/2024 00:00:001 00:00:00CBC Venipuncture (in house)wbc 2696-91-66A70:00:005.83.5 - 10RevieweMartha Yan 05/21/2024 11:47:14 AM > , Provider reviewed results while patient in office.Nory Lujan 05/21/2024 12:36:05 PM > Coding CBC Venipuncture (in house) 05/21/2024 00:00: 00:00:00P-Vitamin D 25-HydroxyVitamin D 25-Hydroxy 0968-36-70H33:00:0069.3ng/mL30.0-100.0 - ng/mLRevieAngelaNory S 09/05/2024 12:41:01 PM > see TE Coding P-Vitamin D 25-Hydroxy 09/03/2024 00:00: 00:00:74A-VGLXMJ8654-03YCSSBH2502-25-45R13:00:001.64mU/L0.43- 5.25 - mU/LRevieweNory Sawant S 09/05/2024 12:41:01 PM > see TE Coding P-TSH 09/03/2024 00:00: 00:00:00P-Lipid PanelTriglycerides 0381-37-94J74:00:33759gl/dL<150 - mg/dLCarlos EnriqueNory Sawant 09/05/2024 12:41:01 PM > see TE Coding P-Lipid Panel 09/03/2024 00:00: 00:00:00P-Lipid PanelNon-HDL Cholesterol 3146-52-95C54:00:0087mg/dL<130 - mg/dLReinaameliaestrellitaNory 09/05/2024 12:41:01 PM > see TE Coding P-Lipid Panel 09/03/2024 00:00: 00:00:00P-Lipid PanelLDL/HDL Ratio 6929-98-94I60:00:000.2Ratio<3.3 - RatioJose JuanNory 09/05/2024 12:41:01 PM > see TE Coding P-Lipid Panel 09/03/2024 00:00: 00:00:00P-Lipid PanelLDL Cholesterol (Calculation) 9077-23-03Q96:00:0013mg/dL<130 - mg/dLReinaNory morgan 09/05/2024 12:41:01 PM > see TE Coding P-Lipid Panel 09/03/2024 00:00: 00:00:00P-Lipid PanelHDL Cholesterol 6617-88-48D97:00:0061mg/dL>39 - mg/dLJose JuanNory 09/05/2024 12:41:01 PM > see TE Coding P-Lipid Panel 09/03/2024 00:00: 00:00:00P-Lipid PanelCholesterol 1511-04-01N00:00:70109sm/dL<200 - mg/dLReinaameliaestrellitaNory 09/05/2024 12:41:01 PM > see TE Coding P-Lipid Panel 09/03/2024 00:00: 00:00:00P-Lipid PanelCholesterol / HDL Ratio 3486-22-36J23:00:002.00Hikgi4.00-4.44 - RatioReDemetriaNory 09/05/2024 12:41:01 PM > see TE Coding P-Lipid Panel 09/03/2024 00:00: 00:00:00P-T4 Free (thyroxine)Thyroxine Free (free T4)6072-25-55L70:00:001.09ng/dL0.86-1.76 - ng/dLReDemetriaNory 09/05/2024 12:41:01 PM > see TE Coding P-T4 Free (thyroxine) 09/03/2024 00:00: 00:00:00P-Comprehensive Metabolic Panel (CMP)eGFR by Mkhnxgbjmc4415-04-46C66:00:76415eS/min/1.73m2>59 - mL/min/1.82g8Aznchcec CrowdyNory Jose 09/05/2024 12:41:01 PM > see TE Coding P-Comprehensive Metabolic Pa tammy (CMP) 09/03/2024 00:00: 00:00:00P-Comprehensive Metabolic Panel (CMP) Xhodyth5959-12-66G07:00:006.6g/dL6.0-8.3 - g/dLJose JuanNory 09/05/2024 12:41:01 PM > see TE Coding P-Comprehensive Metabolic Pa tammy (CMP) 09/03/2024 00:00: 00:00:00P-Comprehensive Metabolic Panel (CMP) Tlfgxg0203-97-99S14:00:45465davb/Z662-400 - mmol/LRevJosephNory 09/05/2024 12:41:01 PM > see TE Coding P-Comprehensive Metabolic Pa tammy (CMP) 09/03/2024 00:00: 00:00:00P-Comprehensive Metabolic Panel (CMP) Uijtaeuuo9759-87-75L61:00:004.9mmol/L3.5-5.3 - mmol/LRevJosephNory Jose 09/05/2024 12:41:01 PM > see TE Coding P-Comprehensive Metabolic Pa tammy (CMP) 09/03/2024 00:00: 00:00:00P-Comprehensive Metabolic Panel (CMP) Lgjgoar0119-30-60J10:00:0062mg/dL65-99 - mg/dLLRChristaOliversaige Garcia 09/05/2024 12:41:01 PM > see TE Coding P-Comprehensive Metabolic Pa tammy (CMP) 09/03/2024 00:00: 00:00:00P-Comprehensive Metabolic Panel (CMP) Bepdbmpggg2998-50-52Q00:00:000.64mg/dL0.50-1.00 - mg/dLNory Manzano 09/05/2024 12:41:01 PM > see TE Coding P-Comprehensive Metabolic Pa tammy (CMP) 09/03/2024 00:00: 00:00:00P-Comprehensive Metabolic Panel (CMP)CO2 2176-28-63H67:00:0024mmol/L22-32 - mmol/LRChristaNory S 09/05/2024 12:41:01 PM > see TE Coding P-Comprehensive Metabolic Pa tammy (CMP) 09/03/2024 00:00: 00:00:00P-Comprehensive Metabolic Panel (CMP) Eqjxruil1841-45-62Q58:00:36429wwby/L97-108 - mmol/LRevJosephNory S 09/05/2024 12:41:01 PM > see TE Coding P-Comprehensive Metabolic Pa tammy (CMP) 09/03/2024 00:00: 00:00:00P-Comprehensive Metabolic Panel (CMP) Vgubvgd6122-26-59Z01:00:009.6mg/dL8.6-10.4 - mg/dLNory Manzano S 09/05/2024 12:41:01 PM > see TE Coding P-Comprehensive Metabolic Pa tammy (CMP) 09/03/2024 00:00: 00:00:00P-Comprehensive Metabolic Panel (CMP)BUN 0938-54-24G60:00:0014mg/dL6-20 - mg/dLNory Manzano 09/05/2024 12:41:01 PM > see TE Coding P-Comprehensive Metabolic Pa tammy (CMP) 09/03/2024 00:00: 00:00:00P-Comprehensive Metabolic Panel (CMP) Bilirubin, Kbbxy5046-21-15O62:00:00<0.2mg/dL<0.2-1.2 - mg/dLReNory Flores 09/05/2024 12:41:01 PM > see TE Coding P-Comprehensive Metabolic Pa tammy (CMP) 09/03/2024 00:00: 00:00:00P-Comprehensive Metabolic Panel (CMP)AST (SGOT)9739-49-34E69:00:0023IU/L<5-40 - IU/LRevieNory Miller 09/05/2024 12:41:01 PM > see TE Coding P-Comprehensive Metabolic Pa tammy (CMP) 09/03/2024 00:00: 00:00:00P-Comprehensive Metabolic Panel (CMP)ALT (SGPT)2096-40-28Q45:00:0030IU/L<5-47 - IU/LRevNory Ruiz 09/05/2024 12:41:01 PM > see TE Coding P-Comprehensive Metabolic Pa tammy (CMP) 09/03/2024 00:00: 00:00:00P-Comprehensive Metabolic Panel (CMP) Alkaline Wrdfnkdxsji4214-67-08A74:00:0058IU/L35-121 - IU/LRevNory Ruiz 09/05/2024 12:41:01 PM > see TE Coding P-Comprehensive Metabolic Pa tammy (CMP) 09/03/2024 00:00: 00:00:00P-Comprehensive Metabolic Panel (CMP) Dbtbreu9734-12-09Z06:00:004.6g/dL3.5-5.3 - g/dLRevieweNory Sawant 09/05/2024 12:41:01 PM > see TE Coding P-Comprehensive Metabolic Pa tammy (CMP) 09/03/2024 00:00: 00:00:00P-Comprehensive Metabolic Panel (CMP)A/G Ccvpb5347-02-09J38:00:002.31.1-2.5 -ReviewedNory Lujan 09/05/2024 12:41:01 PM > see TE Coding P-Comprehensive Metabolic Pa tammy (CMP) 09/03/2024 00:00: 00:00:00P-Vitamin E94Tjhlqvx B12 9633-13-42T80:00:03782es/dY003-4436 - pg/mLRevieweNory Sawant 09/05/2024 12:41:01 PM > see TE Coding P-Vitamin B12 09/03/2024 00:00: 00:00:00Glycohemoglobin A1c (in house) omcpbrmuuyebuit1063-59-64R85:00:005.3%%5 - 6.5 %Juliana Gonzalez 09/03/2024 1:59:38 PM > Provider reviewed results while patient in office. Coding Glycohemoglobin A1c (in hous e) 09/03/2024 00:00: 00:00:00CBC Venipuncture (in house)izzy 3732-60-59N09:00:20053971 - 400RevieweJuliana Stewart 09/03/2024 1:56:14 PM > Provider reviewed results while patient in office. Coding CBC Venipuncture (in house) 09/03/2024 00:00: 00:00:00CBC Venipuncture (in house)[facility] 1833-78-77U15:00:0032.931 - 38ReJuliana Beltrán 09/03/2024 1:56:14 PM > Provider reviewed results while patient in office. Coding CBC Venipuncture (in house) 09/03/2024 00:00: 00:00:00CBC Venipuncture (in house)[facility] 7244-01-64E76:00:0029.425 - 35ReviewedHnuriaDelaware County Hospital 09/03/2024 1:56:14 PM > Provider reviewed results while patient in office. Coding CBC Venipuncture (in house) 09/03/2024 00:00: 00:00:00CBC Venipuncture (in house)mcv 2714-26-00E51:00:0089.375 - 100RevieweTerryDelaware County Hospital 09/03/2024 1:56:14 PM > Provider reviewed results while patient in office. Coding CBC Venipuncture (in house) 09/03/2024 00:00: 00:00:00CBC Venipuncture (in house)hct 9058-36-13G94:00:0039.135 - 55RevieweTerryDelaware County Hospital 09/03/2024 1:56:14 PM > Provider reviewed results while patient in office. Coding CBC Venipuncture (in house) 09/03/2024 00:00: 00:00:00CBC Venipuncture (in house)hgb 1955-63-88V74:00:0012.911.5 - 16.5RevieweTerryDelaware County Hospital 09/03/2024 1:56:14 PM > Provider reviewed results while patient in office. Coding CBC Venipuncture (in house) 09/03/2024 00:00: 00:00:00CBC Venipuncture (in house)rbc 8153-93-14D05:00:004.383.5 - 5.5RevieweTerryDelaware County Hospital 09/03/2024 1:56:14 PM > Provider reviewed results while patient in office. Coding CBC Venipuncture (in house) 09/03/2024 00:00: 00:00:00CBC Venipuncture (in house)gran 8154-11-16J17:00:0081.335 - 80RevieweTerryDelaware County Hospital 09/03/2024 1:56:14 PM > Provider reviewed results while patient in office. Coding CBC Venipuncture (in house) 09/03/2024 00:00: 00:00:00CBC Venipuncture (in house)mid 6290-50-78H57:00:004.22 - 15ReLeigh AnnDelaware County Hospital 09/03/2024 1:56:14 PM > Provider reviewed results while patient in office. Coding CBC Venipuncture (in house) 09/03/2024 00:00: 00:00:00CBC Venipuncture (in house)lymph 3562-77-29H80:00:0014.515 - 50ResalasrenettaLicking Memorial Hospital 09/03/2024 1:56:14 PM > Provider reviewed results while patient in office. Coding CBC Venipuncture (in house) 09/03/2024 00:00: 00:00:00CBC [facility] 7931-97-94T74:00:006.33.5 - 10ReLeigh AnnDelaware County Hospital 09/03/2024 1:56:14 PM > Provider reviewed results while patient in office. Coding CBC Venipuncture (in house) 09/03/2024 00:00: 00:00:00P-Microalbumin/Creatinine, Random Urine SampleMicroalbumin, Urine, Nexpuv4354-27-20L35:00:003.3mg/dL- mg/dLReviewed Nory Lujan 09/09/2024 2:41:21 PM > Coding P-Microalbumin/Creatinine, R andom Urine Sample 09/05/2024 00:00: 00:00:00P-Microalbumin/Creatinine, Random Urine SampleCreatinine, [id number]:00:62360.2mg/dL- mg/dLRevieweNory Sawant 09/09/2024 2:41:21 PM > Coding P-Microalbumin/Creatinine, R andom Urine Sample 09/05/2024 00:00: 00:00:00P-Microalbumin/Creatinine, Random Urine SampleAlbumin/Creatinine Ratio, [id number]:00:0015ug/mg0-30 - ug/mg ReviewedNory Lujan 09/09/2024 2:41:21 PM > Coding P-Microalbumin/Creatinine, R andom Urine Sample 09/05/2024 00:00:00
--- OUTSIDE RECORDS SUMMARY | 2025-05-11 08:46 | XMS_ITS | Patient Health Record ---
Author Organization [facility] Address [address] [place] [id number] Care Team Providers Care Thread Twister Name Role Phone Paolo eSe Primary Care Provider Nory Lujan Unavailable [phone] Allergies Allergen (clinical drug ingredient) Drug/Non Drug Allergy documented on EMR Reaction Allergy Type Onset Date Status Iodinated contrast media (substance) Iodinated Contrast Media Unknown Drug Allergy Active morphine Morphine Unknown Drug Allergy Active Results Component Value Reference Range Notes P-Comprehensive Metabolic Pa tammy (CMP) Reviewed date:03/25/2025 04:44:54 PM Interpretation:gluc 113, a1c 5.9-normal Performing Lab: Notes/Report: Test performed by [facility] [address] [place] [address] , [address], [place] [address] Jamey Mejia MD, Door To Door Salesperson CLIA: [id number] Sodium 135 135-145 mmol/L Potassium 4.5 3.5-5.3 [...] Interpretation:Normal Performing Lab: Notes/Report: Test performed by [facility], [address] , [facility], [place] [address] Jamey Mejia MD, Door To Door Salesperson CLIA: [id number] Cholesterol 155 <200 mg/dL Triglycerides 135 <150 [...] Interpretation:Normal Performing Lab: Notes/Report: Test performed by [facility] [address] [place] [address] , [address], [place] [address] Jamey Mejia MD, Door To Door Salesperson CLIA: [id number] Vitamin D 25-Hydroxy 71.0 30.0-100.0 ng/mL Interpretation of Vitamin D 25 OH: < 20 ng/mL - Deficiency 20 - 29 ng/mL - Insufficiency 30 - 100 ng/mL - Sufficiency > 100 ng/mL - Super-therapeutic- toxicity may occur above this level. Clinical correlation required. Glucose (In-House) Reviewed date:03/25/2025 04:44:54 PM Interpretation:136 Performing Lab: Notes/Report: 136 blood glucose 136 74 - 106 mg/dL Glycohemoglobin A1c (in hous e) Reviewed date:03/25/2025 04:44:54 PM Interpretation:5.9 Normal Performing Lab: Notes/Report: 5.9 Normal glycohemoglobin 5.9% 5 - 6.5 % P-Microalbumin/Creatinine, R andom Urine Sample Reviewed date:09/09/2024 02:41:38 PM Interpretation:Normal Performing Lab: Notes/Report: CLIA: [id number] Jamey Mejia MD, Door To Door Salesperson [address] [place] [address] , [place] [address] Test performed by [facility] Albumin/Creatinine Ratio, Urine 15 0-30 ug/m g Microalbumin, Urine, Random 3.3 Creatinine, Urine 224.2 P-Vitamin D 25-Hydroxy Reviewed date:09/05/2024 12:41:12 PM Interpretation:69.3 Performing Lab: Notes/Report: CLIA: [id number] Jamey Mejia MD, Door To Door Salesperson [address] [place] [address] , [address], [place] [address] Test performed by [facility] Vitamin D 25-Hydroxy 69.3 30.0-100.0 ng/mL Interpretation of Vitamin D 25 OH: < 20 ng/mL - Deficiency 20 - 29 ng/mL - Insufficiency 30 - 100 ng/mL - Sufficiency > 100 ng/mL - Super-therapeutic- toxicity may occur above this level. Clinical correlation required. CBC Venipuncture (in house) Reviewed date:05/21/2024 12:36:11 PM Interpretation: Performing Lab: Notes/Report: wbc 5.8 3.5 - 10 lymph 19.2% 15 - 50 mid 5.8% 2 - 15 gran 75.0% 35 - 80 rbc 4.19 3.5 - 5.5 hgb 11.8 11.5 - 16.5 hct 35.4 35 - 55 mcv 84.4 75 - 100 mch 28.2 25 - 35 mchc 33.4 31 - 38 platlet 329 100 - 400 Glycohemoglobin A1c (in hous e) Reviewed date:05/22/2024 08:15:25 AM Interpretation: Performing Lab: Notes/Report: glycohemoglobin 5.7% 5 - 6.5 % P-Vitamin B12 Reviewed date:05/22/2024 08:15:24 AM Interpretation: Performing Lab: Notes/Report: Test performed by [facility] [address] [place] [address] , [address], [place] [address] Jamey Mejia MD, Door To Door Salesperson CLIA: [id number] Vitamin B12 306 552-3840 pg/mL P-Comprehensive Metabolic Pa tammy (CMP) Reviewed date:05/22/2024 08:15:24 AM Interpretation: Performing Lab: Notes/Report: Test performed by [facility] [address] [place] [address] , [place] [address] Jamey Mejia MD, Door To Door Salesperson CLIA: [id number] Sodium 139 135-145 mmol/L Potassium 4.8 3.5-5.3 mmol/L Chloride 102 97-108 mmol/L CO2 26 22-32 mmol/L Glucose 70 65-99 mg/dL BUN 11 6-20 mg/dL Creatinine 0.69 0.50-1.00 mg/dL Calcium 9.5 8.6-10.4 mg/dL eGFR by Creatinine 101 >59 mL/min/1.73m2 Protein 6.6 6.0-8.3 g/dL Albumin 4.5 3.5-5.3 g/dL Alkaline Phosphatase 73 35-121 IU/L ALT (SGPT) 34 <5-47 IU/L AST (SGOT) 28 <5-40 IU/L Bilirubin, Total <0.2 <0.2-1.2 mg/dL A/G Ratio 2.1 1.1-2.5 P-T4 Free (thyroxine) Reviewed date:05/22/2024 08:15:24 AM Interpretation: Performing Lab: Notes/Report: Test performed by [facility] [address] [place] [address] , [facility] [place] [address] Jamey Mejia MD, Door To Door Salesperson CLIA: [id number] Thyroxine Free (free T4) 1.20 0.86-1.76 ng/dL P-Lipid Panel Reviewed date:05/22/2024 08:15:25 AM Interpretation: Performing Lab: Notes/Report: Test performed by [facility] [address] [place] [address] , [place] [address] Jamey Mejia MD, Door To Door Salesperson CLIA: [id number] Cholesterol 137 <200 mg/dL Triglycerides 212 <150 mg/dL HDL Cholesterol 58 >39 mg/dL Cholesterol / HDL Ratio 2.36 0.00-4.44 Ratio Non-HDL Cholesterol 79 <130 mg/dL LDL Cholesterol (Calculation) 37 <130 mg/dL LDL Cholesterol Levels* Less than [...] Results: 37 Units: mg/dL % Change: -26% P-TSH Reviewed date:05/22/2024 08:15:25 AM Interpretation: Performing Lab: Notes/Report: Test performed by [facility] [place] [address] Jamey Mejia MD, Door To Door Salesperson DONALD: [id number] TSH 1.86 0.43-5.25 mU/L P-Vitamin D 25-Hydroxy Reviewed date:05/22/2024 08:15:25 AM Interpretation: Performing Lab: Notes/Report: Test performed by [facility] [address] [place], [place] [address] [place] [address] Jamey Mejia MD, Door To Door Salesperson CLIA: [id number] Vitamin D 25-Hydroxy 79.1 30.0-100.0 ng/mL Interpretation of Vitamin D 25 OH: < 20 ng/mL - Deficiency 20 - 29 ng/mL - Insufficiency 30 - 100 ng/mL - Sufficiency > 100 ng/mL - Super-therapeutic- toxicity may occur above this level. Clinical correlation required. CT Scan : Chest with IV cont rast Reviewed date:06/06/2024 08:51:25 AM Interpretation: Performing Lab: Notes/Report: CBC Venipuncture (in house) Reviewed date:09/05/2024 11:03:48 [...] Interpretation:Normal Performing Lab: Notes/Report: Test performed by [facility] [address] [place] [address] , [address], [place] [address] Jamey Mejia MD, Door To Door Salesperson CLIA: [id number] Vitamin B12 030 952-2064 pg/mL P-Comprehensive Metabolic Pa tammy (CMP) Reviewed date:09/05/2024 12:41:12 PM Interpretation:gluc 62 Performing Lab: Notes/Report: Test performed by [facility] [address] [place] [address] , [address], [place] [address] Jamey Mejia MD, Door To Door Salesperson CLIA: [id number] Sodium 139 135-145 mmol/L Potassium 4.9 3.5-5.3 [...] Interpretation:Normal Performing Lab: Notes/Report: Test performed by [facility] [address] [place] [address] [address] , [place] [address] Jamey Mejia MD, Door To Door Salesperson CLIA: [id number] Thyroxine Free (free T4) 1.09 0.86-1.76 ng/dL P-Lipid Panel Reviewed date:09/05/2024 12:41:12 PM Interpretation:trig 370 Performing Lab: Notes/Report: Test performed by [facility] [address] [place] [address] [place] [address] Jamey Mejia MD, Door To Door Salesperson CLIA: [id number] Cholesterol 148 <200 mg/dL Triglycerides 370 <150 [...] Interpretation:Normal Performing Lab: Notes/Report: Test performed by [facility], [address] , [address] , [place] [address] Jamey Mejia MD, Door To Door Salesperson CLIA: [id number] TSH 1.64 0.43-5.25 mU/L P-Microalbumin/Creatinine, R andom Urine Sample Reviewed date:09/22/2024 04:19:48 PM Interpretation: Performing Lab: Notes/Report: Medications Medication SIG (Take, Route, Frequency, Duration) Notes Start Date End Date Status metFORMIN HCl ER 500 MG Take 2 tablets O rally Once a day Active FreeStyle Yanna 3 Sensor - as directed 09/03/2024 Active FreeStyle Yanna 3 [place] - as directed 09/03/2024 Active BD Pen Needle Radha 2nd Gen 32G X 4 MM USE 1 NEEDLE TWICE DAILY; Duration: 90 Active Nystatin 621105 UNIT/GM 1 ye applied to pically 2 times a day 12/21/2021 Active Amitriptyline HCl 25 MG 1 tab(s) orally once a day (at bedtime); Duration: 30 day(s) Active Gilenya 0.5 MG 1 cap(s) orally once a day; Duration: 30 day(s) Active Levothyroxine Sodium 75 MCG Take 1 table t by mouth once daily; Duration: 90 Active Cymbalta 60 MG 2 cap(s) orally once a day; Duration: 30 09/11/2016 Active B-12 1000 MCG 1 tab(s) orally once a day; Duration: 30 day(s) Active Rosuvastatin Calcium 20 MG 1 tablet Oral ly Once a day at bedtime; Duration: 90 days Active Vitamin D3 125 MCG (5000 UT) 2 cap(s) orally once a day Active Omeprazole 40 MG Take 1 capsule by oh ut at bedtime; Duration: 90 Active Aspirin 81 81 MG 1 tablet Orally Once a day; Duration: 30 day(s) Active Accu-Chek Guide Test - USE 1 STRIP THREE TIMES DAILY; Duration: 30 Active Ozempic (2 MG/DOSE) 8 MG/3ML 2 mg Subcutaneous once weekly; Duration: 28 days Active Immunizations Vaccine Route Administration Date Status Comme nts COVID 19 Moderna Unknown 11/17/2020 Administered COVID 19 Moderna Unknown 12/15/2020 Administered Fluzone Quad (6months&older) IM Intramuscular 06/14/2018 Administered Fluzone Quad (6months&older) IM Intramuscular 05/20/2019 Administered Fluzone Quad (6months&older) IM Intramuscular 06/06/2021 Administered Fluzone Quad (6months&older) IM Intramuscular 07/11/2022 Administered Fluzone Quad (6months&older) IM Intramuscular 07/03/2023 Administered Fluzone Quad (6months&older) IM Intramuscular 07/07/2024 Administered PNEUMOVAX 23 VACCINE IM Intramuscular 11/30/2017 Administe red Prevnar (PCV20) Unknown 01/09/2022 Administered Tetanus Tdap-Adacel (over 7yrs) IM Intramuscular 11/30/2017 Administered Tetanus Tdap-Adacel (over 7yrs) Unknown 04/29/2019 Administered xFluzone Intradermal (18-64yrs)-trivalent ID Intradermal 09/05/2012 Administered Problems Problem Type SNOMED Code ICD Code Onset Dates Problem Status W/U Status Risk Notes Problem Type II diabetes mellitus without complication (416866498) Type 2 diabetes mellitus without complications (E11.9) Active confirmed Problem Essential hypertension (09084115) Essential (primary) hypertension (I10) Active confirmed Problem Peripheral circulatory disorder associated with diabetes mellitus (802689872) Type 2 diabetes mellitus with other circulatory complications (E11.59) Active confirmed Problem Hypothyroidism (32207659) Hypothyroidism (acquired) (E03.9) Active confirmed Problem Vitamin D deficiency (62136810) Vitamin D deficiency (E55.9) Active confirmed Problem Hypoglycemia (182938981) Hypoglycemia (E16.2) Active confirmed Problem Hyperglycemia due to type 2 diabetes mellitus (556412307629330) Type 2 diabetes mellitus with hyperglycemia (E11.65) Active confirmed Problem Mixed hyperlipidemia (601699776) Mixed hyperlipidemia (E78.2) Active confirmed Problem Blind right eye, low vision left eye (disorder) (114995227483765) Blindness, right eye, 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) Active confirmed Problem Long-term current us e of insulin (106238736) 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) Active confirmed Problem Gastroesophageal reflux disease without esophagitis (197911843) Gastroesophageal reflux disease without esophagitis (K21.9) Active confirmed Problem Mammography abnormal (023179019) Abnormal mammogram of left breast (R92.8) Active confirmed Problem Chronic diastolic heart failure (857982239) Chronic diastolic congestive heart failure (I50.32) Active confirmed Problem Depressive disorder (disorder) (73692054) Depression, unspecified depression type (F32.9) Active confirmed Problem Pure hypercholesterolemia (164614327) Pure hypercholesterolemia (E78.00) Active confirmed Problem Squamous cell carcinoma of skin (618861639) Squamous cell skin cancer (C44.92) Active confirmed Problem Multiple sclerosis (83858012) MS (multiple sclerosis) (G35) Active confirmed Problem Glossodynia (37747586) Tongue pain (K14.6) Active confirmed Problem Fibrocystic breast changes (64010402) Fibrocystic breast disease (FCBD), unspecified laterality (N60.19) Active confirmed Vital Signs Heart Rate 82 /min 03/24/2025 Blood pressure diastolic 62 mm Hg 03/24/2025 Height 65 in 03/24/2025 Blood pressure systolic 100 mm Hg 03/24/2025 Weight 113.8 lbs 03/24/2025 BMI 18.94 kg/m2 03/24/2025 Encounters Encounter Location Date Provider Diagnosis [address] [id number] 05/21/2024 Nory Lujan Chronic cough R05.3 ; Wheezing R06.2 ; Type 2 diabetes mellitus without complications E11.9 ; Gastroesophageal reflux disease without esophagitis K21.9 ; fashion design professor current use of insulin Z79.4 ; Essential (primary) hypertension I10 ; Mixed hyperlipidemia E78.2 ; Hypothyroidism (acquired) E03.9 ; MS (multiple sclerosis) G35 ; Depression, unspecified depression type F32.9 ; Chronic diastolic congestive heart failure I50.32 ; Vitamin B12 deficiency E53.8 ; Vitamin D deficiency E55.9 and [facility]ral[facility] M25.50 [facility] [id number] 07/07/2024 Paolo See Encounter for immuni zation Z23 [address] [id number] 09/03/2024 Nory Lujan Adult general medica l examination Z00.00 ; Type 2 diabetes mellitus without complications E11.9 ; Gastroesophageal reflux disease without esophagitis K21.9 ; [facility] current use of insulin Z79.4 ; Essential [...] screening Z13.820 and BMI 21.0-21.9, adult Z68.21 [facility] [address] [facility] [address] [place], [place] [id number] 09/05/2024 Nory Lujan Essential (primary) hypertension I10 [facility] [address] [place], [place] [id number] 11/12/2024 Nory Lujan 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 ; Periumbilical abdominal pain R10.33 and Hypoglycemia E16.2 [facility] [address] [place], [place] [id number] 03/24/2025 Paolo [place] Type 2 diabetes waldemar itus without complications [...] mass index (BMI) less than 19 Z68.1 [facility] [address] [facility] [address] [place], [place] [id number] 05/22/2024 Nory Lujan [facility] [address] [facility] [address] [place] [id number] 06/06/2024 Nory Lujan [facility] [address] [facility] [address] [place] [id number] 06/19/2024 Nory Lujan [facility] [address] [facility] [address] [place] [id number] 09/05/2024 Nory Lujan [facility] [address] [facility] [address] [place] [id number] 12/08/2024 Paolo [place] [facility] [address] [facility] [address] [place], [place] [id number] 02/18/2025 Noyr Lujan Assessments Encounter Date Diagnosis (ICD Code) Assessment Notes Treatment Notes Treatment Clinical Notes Section Notes 05/21/2024 Wheezing (ICD-10 - R06.2) 05/21/2024 Chronic cough (ICD-10 - R05.3) 07/07/2024 Encounter for immunization (ICD-10 - Z23) 09/03/2024 Type 2 diabetes mellitus without complications (ICD-10 - E11.9) 09/03/2024 Adult general medical examination (ICD-10 - Z00.00) Patient instructed to return to office Annually for Annual Wellness Visits to include annual screenings of Pain assessment, Functional Ability assessment, Cognitive Ability assessment, Fall Risk assessment, Depression screening and Bladder control screening. 11/12/2024 Periumbilical abdominal pain (ICD-10 - R10.33) No hernia is palpable. The pain is likely due to scar tissue from previous hernia repair. If pain continues she will go back and see the surgeon. 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 Will stop the insulin and see how she does without it. 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 (ICD-10 - Z79.4) 03/24/2025 Colon cancer screening (ICD-10 - Z12.11) 09/03/2024 Essential (primary) hypertension (ICD-10 - I10) 05/21/2024 [facility] current use of insulin (ICD-10 - Z79.4) 09/03/2024 Mixed hyperlipidemia (ICD-10 - E78.2) 05/21/2024 Essential (primary) hypertension (ICD-10 - I10) 03/24/2025 Osteoporosis screening (ICD-10 - Z13.820) 03/24/2025 MS (multiple sclerosis) (ICD-10 - G35) 09/03/2024 Hypothyroidism (acquired) (ICD-10 - E03.9) 05/21/2024 Mixed hyperlipidemia (ICD-10 - E78.2) 05/21/2024 Hypothyroidism (acquired) (ICD-10 - E03.9) 03/24/2025 Hypothyroidism (acquired) (ICD-10 - E03.9) 09/03/2024 MS (multiple sclerosis) (ICD-10 - G35) 09/03/2024 Depression, unspecified depression type (ICD-10 - F32.9) 03/24/2025 Depression, unspecified depression type (ICD-10 - F32.9) 05/21/2024 MS (multiple sclerosis) (ICD-10 - G35) 09/03/2024 Chronic diastolic congestive heart failure (ICD-10 - I50.32) 05/21/2024 Depression, unspecified depression type (ICD-10 - F32.9) 03/24/2025 Type 2 diabetes mellitus with other circulatory complications (ICD-10 - E11.59) 03/24/2025 Body mass index (BMI) less than 19 (ICD-10 - Z68.1) 09/03/2024 Vitamin B12 deficiency (ICD-10 - E53.8) 05/21/2024 Chronic diastolic congestive heart failure (ICD-10 - I50.32) 09/03/2024 Vitamin D deficiency (ICD-10 - E55.9) 05/21/2024 Vitamin B12 deficiency (ICD-10 - E53.8) 05/21/2024 Vitamin D deficiency (ICD-10 - E55.9) 09/03/2024 Polyarthralgia (ICD-10 - M25.50) 05/21/2024 Polyarthralgia (ICD-10 - M25.50) 09/03/2024 Screening mammogram, encounter for (ICD-10 - Z12.31) 09/03/2024 Osteoporosis screening (ICD-10 - Z13.820) 09/03/2024 BMI 21.0-21.9, adult (ICD-10 - Z68.21) Plan Of Treatment Pending Test Test Name Order Date Bone density 09/03/2024 colonoscopy 11/21/2023 colonoscopy 03/24/2025 DEXA Hip and Spine 03/24/2025 Mammogram 09/03/2024 Mammogram 03/24/2025 Insurance Providers Payer Name Payer Address Payer Phone Subscriber Number Group Number Insured Name Patient Relationship to Insured Coverage Start Date Coverage End Date [employer] (MEDICAR E) [address] [address] [place] [address] [id number] Alison Lucero Self - patient is the insured Medications Administered Medication Instructions Date of Administration Dosage Notes Dexamethasone 07/04/2007 4 mg Medical (General) History Medical History History ICD Code Multiple Sclerosis, followed by Neurolog y RT Eye Blindness - disqualifies patient from driving Type 2 Diabetes Hypercholestrolemia Hypertriglyceridemia Dystolic Congestive Heart Failure Depression with anxiety Surgical History Surgery Date(Month/Year) Appendectomy 1986 Back 1987 1990 Shoulder Repair 1993 Cholecystectomy 2013 RT Knee Triple T 2011 Umbilical Hernia Repair 2009 Umbilical Hernia Repair- Dr. Foster Hospitalization History Reason Date(Month/Year) MS Exacerbation- [facility] 01/24/2016 Vomitting- [facility] ER 08/30/2014 Chest Pain- [facility] 09/2009 out patient MS flair up
--- OUTSIDE RECORDS SUMMARY | 2025-05-11 08:46 | XMS_ITS | Clinical Summary ---
Author Organization [facility] ([place], [place], [place], [place]) Address [address] [place] [address] Care Team Providers Care Handyperson Name Role Phone Paolo See MD Primary Care Provider + [phone] Allergies Active Allergy Reactions Criticality Noted Date Comments Morphine 11/15/2022 Medications fluconazole (DIFLUCAN) 150 MG tablet Take 1 tablet (150 mg total) by mouth once. 08/17/2022 Active Tresiba FlexTouch U-100 100 unit/mL (3 mL) InPn Inject subcutaneous ly. 11/13/2022 Active levothyroxine (SYNTHROID, LEVOTHROID) 75 MCG tablet Take 1 tablet (75 mcg total) by mouth daily. 09/05/2022 Active metFORMIN (GLUCOPHAGE-XR) 500 MG 24 hr tablet Take 2 tablets (1,000 mg total) by mouth 2 (two) times daily. 10/10/2022 Active omeprazole (PriLOSEC) 40 MG capsule Take 1 capsule (40 mg total) by mouth nightly. 08/15/2022 Active rosuvastatin (CRESTOR) 20 MG tablet Take 1 tablet (20 mg total) by mouth nightly. 08/15/2022 Active verapamiL (VERELAN PM) 300 mg 24 hr capsule Take 1 capsule (300 mg total) by mouth daily. 09/12/2022 Active cholecalciferol (VITAMIN D3) 125 mcg (5,000 unit) tablet Take 1 tablet (5,000 Units total) by mouth daily. Active BD Radha 2nd Gen Pen Needle 32 gauge x Ndle USE 1 PEN NEEDLE TWICE DAILY 12/18/2023 Active Ozempic 2 mg/dose (8 mg/3 mL) pnij Inject 2 mg under the skin once a week. 09/30/2024 Active amitriptyline (ELAVIL) 25 MG tablet Take 1-2 tablets (25-50 mg total) by mouth nightly. 180 tablet 10/02/2024 6 Active baclofen (LIORESAL) 20 MG tablet Take 1 tablet (20 mg total) by mouth every 8 (eight) hours as needed. 60 tablet 10/02/2024 Active DULoxetine (CYMBALTA) 60 MG capsule Take 1 capsule (60 mg total) by mouth 2 (two) times daily. 180 capsule 10/02/2024 6 Active fingolimod 0.5 mg capIndications: Multiple sclerosis (HCC) Take 1 capsule by mouth daily. 90 capsule 10/02/2024 6 Active folic acid (FOLVITE) 1 MG tablet Take 1 tablet (1 mg total) by mouth daily. 30 tablet 10/10/2024 Active thiamine (vitamin B-1) 100 MG tablet Take 1 tablet (100 mg total) by mouth daily. 30 tablet 10/10/2024 6 Active pyridoxine, vitamin B6, (vitamin B-6) 50 MG tablet Take 1 tablet (50 mg total) by mouth daily. 30 tablet 10/10/2024 6 Active Active Problems No known active problems Social History Tobacco Use Types Packs/Day Years Used Date Smoking Tobacco: Never Smokeless Tobacco: Never Tobacco Cessation:Counseling Given: Not Answered Alcohol Use Standard Drinks/Week Comments Not Currently 0 (1 standard drink = 0.6 oz pur e alcohol) Family and Community Support Answer David e Recorded Help with Day to Day Activities Not on file 09/07/2023 Feeling Lonely or Isolated Not on file 09/07 Educational Attainment Answer Date Abiel rded Speak language other than [place] Islander at home Not on file 09/07/2023 Want help with school or training Not on file 09/07/2023 Substance Use Answer Date Recorded Used prescription meds for non-medical reasons N ot on file 09/07/2023 Used illegal drugs past 12 months Not on file 09/07/2023 Comments Unknown Sex and Gender Information Value Date Recorded Sex Assigned at Not on file Legal Sex Female 5:14 PM CDT Gender Identity Not on file Sexual Orientation Not on file Last Filed Vital Signs Vital Sign Reading Time Taken Comments Blood Pressure 104/70 10/02/2024 9:27 AM EST Pulse 96 10/02/2024 9:27 AM EST Temperature - - Respiratory Rate - - Oxygen Saturation 96% 01/16/2024 10:31 AM EDT Inhaled Oxygen Concentration - - Weight 55.3 kg (122 lb) 10/02/2024 9:27 AM EST Height 165.1 cm (5' 5 ) 10/02/2024 9:27 AM EST Body Mass Index 20.3 10/02/2024 9:27 AM EST Plan of Treatment Health Maintenance Due Date Last Done Comments Medicare Initial AWV G0438 CT Colonography 1967 Colonoscopy 1967 Colorectal Cancer Screening 1967 FOBT/FIT 1967 Fit-DNA (Cologuard) 1967 Sigmoidoscopy 1967 Depression Screening (12+) 1979 HIV Screening 10/20/1982 Hepatitis C Screening 10/20/1985 Pap Smear 10/20/1988 Breast Cancer Screening 2007 Lipid Panel 10/20/2012 Shingles Vaccine (Zoster) (1 of 2) 10/20/2017 COVID-19 VACCINE (3 - 2024- season) 2025, 11/17/2020 Influenza Vaccine (#1) 2025 06/08/2020 Tobacco Cessation Counseling and Screening (12+) 10/02/2025 10/02/2024 DTAP/TDAP/TD VACCINES (3 - Td or Tdap) 04/29/2029, 11/30/2017 Pneumococcal 50+ years Completed 01/09/2022, 2017 Insurance [employer] MEDICARE PPO Care Teams Handyperson Relationship Specialty Start Date End Date Paolo See MD [address] [facility] [address] [place] [address] PCP - General Family Medicine 11/15/22
--- OUTSIDE RECORDS SUMMARY | 2025-05-11 08:47 | XMS_ITS | Referral Summary ---
Author Organization [employer] ([place], [place], [place], [place]) Address [address] [place] [address] Care Team Providers Care Client Advisor Name Role Phone Paolo See MD Primary Care Provider [phone] Allergies Active Allergy Reactions Criticality Noted Date [...] Date Abiel rded Speak language other than Namibian at home Not on file 09/07/2023 Want [...] 10/02/2024 9:27 AM EST Plan of Treatment Not on file Insurance [employer] MEDICARE PPO Care Teams Client Advisor Relationship Specialty Start Date End Date Paolo See MD [address] [facility] [address] [place] [address] PCP - General Family Medicine 11/15/22
--- OUTSIDE RECORDS SUMMARY | 2025-05-11 08:47 | XMS_ITS | Encounter Summary ---
Author Organization [employer] ([place], [place], [place], [place]) Address [address] [place] [address] Care Team Providers Care Aircraft Landing Gear Inspector Name Role Phone Paolo See MD Primary Care Provider [phone] Reason for Visit * Reason Comments Medication Refill Encounter Details Date Type Department Care Team (Late st Contact Info) Description 01/29/2023 Refill [facility] Neurology - [facility] [address] [facility] [address] [place] [address] Sandra Crook APRN [address] [facility] [address] [place] [address] Multiple sclerosis (HCC) Social History Tobacco Use Types Packs/Day Years Used Date Smoking Tobacco: Never Smokeless Tobacco: Never Alcohol Use Standard Drinks/Week Comments Not Currently 0 (1 standard drink = 0.6 oz pur e alcohol) Comments Unknown Sex and Gender Information Value Date Recorded Sex Assigned at Not on file Legal Sex Female 5:14 PM CDT Gender Identity Not on file Sexual Orientation Not on file documented as of this encounter Plan of Treatment Not on file documented as of this encounter Visit Diagnoses Diagnosis Multiple sclerosis (HCC) Multiple sclerosis documented in this encounter Care Teams Aircraft Landing Gear Inspector Relationship Specialty Start Date End Date Paolo See MD [address] [facility] [address] [place] [address] PCP - General Family Medicine 11/15/22 documented as of this encounter
--- OUTSIDE RECORDS SUMMARY | 2025-05-11 08:47 | XMS_ITS | Encounter Summary ---
Author Organization [employer] ([place], [place], [place], [place]) Address [address] [place] [address] Care Team Providers Care Knitter Machine Name Role Phone Paolo See MD Primary Care Provider [phone] Reason for Visit * Reason Comments Medication Refill Encounter Details Date Type Department Care Team (Late st Contact Info) Description 07/17/2023 Refill [facility] Neurology - [facility] [address] [facility] [address] [place] [address] Sandra Crook APRN [address] [facility] [address] [place] [address] Multiple sclerosis (HCC) Social History Tobacco Use [...] sclerosis documented in this encounter Care Teams Knitter Machine Relationship Specialty Start Date End Date Paolo See MD [address] [facility] [address] [place] [address] PCP - General Family Medicine 11/15/22 documented as of this encounter
--- OUTSIDE RECORDS SUMMARY | 2025-05-11 08:47 | XMS_ITS | Encounter Summary ---
Author Organization [employer] ([place], [place], [place], [place]) Address [address] [place] [address] Care Team Providers Care Drill Press Tender Name Role Phone Paolo See MD Primary Care Provider [phone] Reason for Visit * Reason Comments Medication Refill Encounter Details Date Type Department Care Team (Late st Contact Info) Description 11/07/2022 Refill [facility] Neurology - [facility] [address] [facility] [address] [place] [address] Sandra Crook APRN [address] [facility] [address] [place] [address] Multiple sclerosis (HCC) Social History Tobacco Use Types Packs/Day Years Used Date Smoking Tobacco: Never Assessed Comments Unknown Sex and Gender Information Value Date Recorded Sex Assigned at Not on file Legal Sex Female 5:14 PM CDT Gender Identity Not on file Sexual Orientation Not on file documented as of this encounter Plan of Treatment Not on file documented as of this encounter Visit Diagnoses Diagnosis Multiple sclerosis (HCC) Multiple sclerosis documented in this encounter Care Teams Drill Press Tender Relationship Specialty Start Date End Date Paolo See MD [address] [facility] [address] [place] [phone] PCP - General Family Medicine 11/15/22 documented as of this encounter
--- NOTE | 2025-05-11 08:54 | XR_ITS ---
FINAL REPORT TECHNIQUE: Bone densitometry calculations of the lumbar spine and left hip were obtained. CLINICAL HISTORY: SCREENING COMPARISON: None FINDINGS: Using L1-4, the bone mineral density of the spine is 0.997 g/cm2, corresponding to T-score of -0.5 and a Z score of 0.8. This is within the range of normal. Using the left hip, the bone mineral density of the femoral neck is 0.802 g/cm2, corresponding to a T-score of -1.2 and a Z-score of -0.3. This is within the range of osteopenia. Using the right hip, the bone mineral density of the femoral neck is 0.707 g/cm?, corresponding to a T-score of -1.3 and a Z-score of -0.1. This is within the range of osteopenia. NOTE: T-score: Standard deviation compared with peak bone mass of young adult mean. *Following the recommendations of the International Society of Bone densitometry, classification of hip BMD is based on the lower of two T-scores; total hip or femoral neck. IMPRESSION: 1. Bone mineral density of the lumbar spine within the range of normal. 2. Bone mineral density of the bilateral femoral necks within the range of osteopenia. Reviewed, Interpreted and Dictated by Yas Christianson MD Transcribed by Eileen Starr Authenticated and [facility]
== END 2025-05-11 23:59 | disposition home or self-care (01) ==
LOC: RAD 08:06
PROVIDERS: PCP Physician Assistant; Visit Provider Family Medicine
DX: Z12.31 Encounter for screening mammogram for malignant neoplasm of breast (principal); M85.852 Other specified disorders of bone density and structure, left thigh; M85.851 Other specified disorders of bone density and structure, right thigh; R92.8 Other abnormal and inconclusive findings on diagnostic imaging of breast; R92.333 Mammographic heterogeneous density, bilateral breasts; Z80.3 Family history of malignant neoplasm of breast
CPT/HCPCS: 77063; 77067; 77080

== ENCOUNTER 2025-05-28 13:04 | Outpatient (CLI) | payer MEDICARE, SELFPAY ==
--- NOTE | 2025-05-28 13:09 | US_ITS ---
PROCEDURE INFORMATION: Exam: US Right Breast, Complete MG Right Diagnostic Breast Tomosynthesis Exam date and time: 05/28/2025 1:32 PM Age: 59 years old Clinical indication: Callback for additional assessment of questionable 1 cm mass in the central anterior right breast identified on screening mammogram 05/11/2025 TECHNIQUE: Imaging protocol: Complete ultrasound of all four quadrants of the right breast and the retroareolar regions, including ultrasound of the axilla when performed. Right Diagnostic tomosynthesis and 2D mammography including computer-aided detection (CAD) when performed. Unilateral or bilateral exam. COMPARISON: 01/29/2023, 05/11/2025 FINDINGS: MAMMOGRAPHY: Breast composition: The breast is heterogeneously dense, which may obscure small masses. Breast mammogram findings: Spot compression tomograms and CC/MLO and full lateral were performed No persistent mass, architectural distortion, or suspicious calcifications are present to suggest malignancy. Findings from recent screening mammography probably reflect overlapping fibroglandular tissue ULTRASOUND: Breast ultrasound findings: Ultrasound assessment of the anterior in the retroareolar right breast demonstrates a parallel well-circumscribed hypoechoic benign-appearing 1.1 x 0.3 x 0.8 cm mass along with hypermetabolic axis 1 cm from the nipple. This has generally benign features suggestive of a benign fibroadenoma No suspicious solid or cystic mass No distortion or shadowing IMPRESSION: Six-month follow-up 10 o'clock anterior right breast ultrasound is warranted to assess stability of the suspected 1.1 cm benign fibroadenoma The region of interest on screening mammography does not persist on additional views ASSESSMENT: BI-RADS category 3: Probably benign
== END 2025-05-28 23:59 | disposition home or self-care (01) ==
LOC: RAD 13:05
PROVIDERS: PCP Family Medicine; Visit Provider Family Medicine
DX: N63.11 Unspecified lump in the right breast, upper outer quadrant (principal); R92.331 Mammographic heterogeneous density, right breast
CPT/HCPCS: 76641; 77061; 77065; G0279

== ENCOUNTER 2025-07-27 09:16 | Day surgery (SDC) | payer MEDICARE, SELFPAY ==
--- NOTE | 2025-07-21 09:10 | EXP.HP ---
History of Present Illness *Admission Date: 07/27/25 *History of present illness: Mrs. Lucero is a 59-year-old female who is here for screening/surveillance colonoscopy secondary to a personal history of colon polyps (unspecified). The examination is deemed medically necessary for screening/surveillance colonoscopy. The patient has been seen, interviewed and examined prior to the procedure by both myself and the anesthesia provider. [facility] Disclaimer: The information contained in this section may have been updated after the patient was seen, as this information can be updated by other users. Medical History (Updated 07/27/25 @ 09:51 by Chandrakant Collins RN) Multiple sclerosis Coronary arteriosclerosis Hyperlipidemia Diabetes mellitus Essential hypertension Coronary-myocardial bridge SOB (shortness of breath) on exertion Diabetes mellitus, type 2 Hyperlipidemia Surgical History History of section History of cholecystectomy History of appendectomy History of cardiac catheterization Family History Other No significant family history Social History (Updated 07/27/25 @ 10:08 by Alcon Fonseca CRNA) Smoking Status: Never smoker alcohol intake: never substance use type: denies use current occupational status: employed and disabled Travel in the last 8 weeks?: Inside the [place] Have you lived/traveled outside US in past 30 days?: No Contact w/someone who lives/traveled outside US past 30 days?: No Exposure to someone with infectious disease in past 14 days?: No Do you have a fever (greater than 100.4 F or 38 C)?: No Have you tested positive for COVID-19?: No Exposed to someone with COVID-19 in past 14 days?: No Do you have a sore throat?: No Do you have a cough?: No Do you have any weakness?: No Do you have any diarrhea?: No Are you experiencing any unusual bleeding?: No Do you have any muscle aches/pain?: No Do you have any abdominal pain?: No Are you experiencing loss of taste or smell?: No Other Medical History Have you received the Flu Vaccine for this season: No Have you received the Pneumonia Vaccine: No Review of Systems Review of Systems Review of systems (narrative): Negative *Cardiovascular Comments: Negative *Gastrointestinal Comments: Negative *Genitourinary Comments: Negative *Musculoskeletal Comments: Negative *Neurologic Comments: Negative Meds Home Medications and Allergies Home Medications ?Medication ?Instructions ?Recorded ?Confirmed ?Type amitriptyline 25 mg tablet 50 mg PO QHS 06/05/18 07/23/25 History aspirin 81 mg tablet,delayed 81 mg PO DAILY 06/05/18 07/23/25 History release (Adult Low Dose Aspirin) fingolimod 0.5 mg capsule (Gilenya) 0.5 mg PO QHS 06/05/18 07/23/25 History omeprazole 40 mg capsule,delayed 40 mg PO DAILY 03/09/20 07/23/25 History release rosuvastatin 20 mg tablet (Crestor) 20 mg PO DAILY #90 tabs 06/13/21 07/23/25 Rx levothyroxine 75 mcg tablet See Rx Instructions .Route 12/05/22 07/23/25 Rx .COMPLEX #90 tabs duloxetine 60 mg capsule,delayed 120 mg PO HS 11/11/24 07/23/25 History release (Cymbalta) semaglutide 2 mg/dose (8 mg/3 mL) 2 mg SQ QWEEK 11/11/24 07/23/25 History subcutaneous pen injector (Ozempic) diltiazem HCl 240 mg 240 mg PO DAILY #30 caps 06/29/25 07/23/25 Rx capsule,extended release 24 hr sodium sul 1.479 gram-potas ch See Rx Instructions PO PER PKG DIR 07/09/25 Rx 0.188 gram-magnes sul 0.225 gram colonscopy #24 tabs tablet (Sutab) New Prescriptions to Start Prescriptions: Allergies Allergy/AdvReac Type Severity Reaction Status Date / Time morphine (MORPHINE) Allergy Unknown Unknown Verified 07/27/25 09:52 allergy reaction MYELOGRAM DYE Allergy Unknown N/V/ALBARADO Uncoded 01/05/25 13:14 Exam *Routine HEENT Exam Head: Present normocephalic Eye: Present EOMI and PERRL ENT: Present mucous membranes moist *Routine Neck Exam Neck: Present supple *Routine Respiratory Exam Respiratory: Present CTA bilaterally *Routine Cardiovascular Exam Cardiovascular: Present RRR *Routine Abdominal Exam Abdominal: Present soft and normoactive bowel sounds; Absent tenderness *Routine Rectal Exam Rectal:: deferred *Routine Genitalia Exam Genitalia:: deferred *Routine Extremities Exam Extremities: Absent cyanosis, clubbing or edema *Routine Skin Exam Skin: Present warm; Absent rash *Routine Neurological Exam Neurological: Present alert and oriented X3 Assessment and Plan *Assessment and plan (1) Personal history of colon polyps, unspecified: Status: Acute Category: Medical Code(s): Z86.0100 - Personal history of colon polyps, unspecified (2) Screening for colon cancer: Status: Acute Category: Medical Code(s): Z12.11 - Encounter for screening for malignant neoplasm of colon Plan A/P: 1. Personal history of colon polyps (unspecified) is the preprocedural diagnosis. The patient will be anesthetized/sedated using MAC sedation. The patient has been seen and examined. Cardiac and lung assessment prior to the examination is stable. Proceed with planned screening/surveillance colonoscopy.
[2025-07-23 14:15] VITALS: BMI 19.1
--- NOTE | 2025-07-27 07:00 | P.PCN_ITS ---
[facility] Procedure Note Date: 07/27/25 Time: 10:53 Procedure Note:: Colonoscopy Procedure Report: Colonoscopy with cold snare polypectomy Endoscopist: Rob Soares II, MD Referring physician: Paolo See MD Date of Procedure: July 27, 2025 Equipment: Olympus [id number] adult colonoscope Sedation: MAC sedation Indication: Mrs. Lucero is a 59-year-old female who is here for screening/surveillance colonoscopy secondary to a personal history of colon polyps (unspecified) and her last colonoscopy was 10 years ago or more. The patient reports no abdominal pain, weight loss, change in her bowel habits or rectal bleeding. She reports no family history of colon cancer. She does have some chronic constipation and gassiness/gas discomfort. The patient does have a history of MS. The examination is deemed medically necessary for screening/surveillance colonoscopy. Procedure: Prior to the procedure, a history and physical exam was performed, and patient's medications and allergies were reviewed. The risks, benefits and alternatives of the sedation and procedure were discussed with the patient. All questions were answered and informed consent was obtained. The patient was brought to the procedure room. Patient identification and proposed procedure were verified by the physician and the nurse. The patient was placed in a left lateral decubitus position and the scope was passed under direct vision. Throughout the procedure, the patient's blood pressure, pulse, and oxygen saturations were monitored continuously. The colonoscopy was accomplished without difficulty. The patient tolerated the procedure well. Findings: On digital rectal examination there was normal rectal tone. There were no external hemorrhoids. The colonoscope was introduced through the anal canal to the rectum and advanced to the cecum. The ileocecal valve and appendiceal orifice were identified. The scope was advanced a short distance into the ileum which appeared grossly normal. The scope was then withdrawn into the colon. The cecum, ascending and transverse colon and mucosa were grossly normal. There was a single 5 mm polyp in the transverse colon removed via cold snare polypectomy. There were scattered diverticuli throughout the descending and sigmoid colon (LEFT colon). The rectum itself was normal. Upon retroflexion within the rectum there were grade 2 internal hemorrhoids. The preparation was excellent throughout with [place] Preparation Score of 9. The cecal time was 12 minutes. Impression: 1. Transverse colon polyp (5 mm) 2. Left-sided diverticulosis 3. Grade 2 internal hemorrhoids Plan: I will follow-up the polyp histology and recommend repeat screening/surveillance colonoscopy again in 7 years if the polyp is adenomatous. I would encourage a fiber bowel regimen on a long-term daily maintenance basis.
[2025-07-27 09:53] VITALS: BP 136/72; PULSE 83; RESP 18; TEMP 36.6; O2SAT 99
[2025-07-27] MEDS: LACTATED RINGERS 1000ML 1,000 ML 50 ML IV (10:01)
--- NOTE | 2025-07-27 10:07 | P.PNANES_ITS ---
[facility] Disclaimer: The information contained in this section may have been updated after the patient was seen, as this information can be updated by other users. Medical History (Updated 07/27/25 @ 09:51 by Chandrakant Collins RN) Multiple sclerosis Coronary arteriosclerosis Hyperlipidemia Diabetes mellitus Essential hypertension Coronary-myocardial bridge SOB (shortness of breath) on exertion Diabetes mellitus, type 2 Hyperlipidemia Surgical History History of section History of cholecystectomy History of appendectomy History of cardiac catheterization Family History Other No significant family history Social History Smoking Status: Never smoker alcohol intake: never substance use type: denies use current occupational status: employed and disabled Travel in the last 8 weeks?: Inside the [facility] Anesthesia Checklist Patient Identification Patient Identification: Arm Band and Verbal (Name & ) Structural Data Admitted From: Home Planned Operative Procedure/s: Colonoscopy Consent for Planned Operative Procedure(s) Verified: Yes Verified Documents: Surgical Consent NPO Status Verified Time NPO: 00:00 Chart Verification Results Verified: None Additional verifications Anesthesia Reactions: No Hx Blood Transfusions: No Blood Transfusion Reaction: No Airway Assessment Mallampati Score:: Class II C-Spine Mobility Assessed: Yes TMJ Mobility Assessed: Yes Dentition: Dentures-good fit Neurological Assessment Level of Consciousness: Awake, Alert and Appropriate Hx Seizures: No Numbness or tingling in extremities: No Anesthesia Plan Anesthesia Risk discussed: Yes Anesthesia Plan: Verified ASA Class: II Anesthesia Type: MAC
[2025-07-27 10:56] VITALS: BP 81/52; PULSE 69; RESP 18; TEMP 36.3; O2SAT 94
[2025-07-27 11:06] VITALS: BP 98/54; PULSE 63; O2SAT 95
[2025-07-27 11:16] VITALS: BP 118/71; PULSE 65; O2SAT 98
[2025-07-27 11:26] VITALS: BP 122/82; PULSE 72; O2SAT 100
[2025-07-28 14:44] LABS: POC Glucose,Bedside 123 gm/dL (70-110)
== END 2025-07-27 11:26 | disposition home or self-care (01) ==
PROVIDERS: PCP Family Medicine; Visit Provider Internal Medicine Gastroenterology
PROC: 0DJD8ZZ Inspection of Lower Intestinal Tract, Via Natural or Artificial Opening Endoscopic (ICD-10-PCS; CPT 45378; principal; 2025-07-27 11:30)
DX: Z12.11 Encounter for screening for malignant neoplasm of colon (principal); K57.30 Diverticulosis of large intestine without perforation or abscess without bleeding; K64.1 Second degree hemorrhoids; D12.3 Benign neoplasm of transverse colon; K59.09 Other constipation; G35.D Multiple sclerosis, unspecified; I25.10 Atherosclerotic heart disease of native coronary artery without angina pectoris; E11.9 Type 2 diabetes mellitus without complications; E78.5 Hyperlipidemia, unspecified; I10 Essential (primary) hypertension; Z90.49 Acquired absence of other specified parts of digestive tract; Z79.82 Long term (current) use of aspirin; Z79.899 Other long term (current) drug therapy; Z88.5 Allergy status to narcotic agent; Z86.0100 Personal history of colon polyps, unspecified; Z91.041 Radiographic dye allergy status
CPT/HCPCS: 45385; 82962; 88305; J2003; J2704; J7120